=== PATIENT | female | born 1955 | race Caucasian/White ===

== ENCOUNTER 2024-12-19 14:20 | Emergency (ER) | payer OTHER ==
--- OUTSIDE RECORDS SUMMARY | 2024-12-19 14:30 | XMS REPORT | Continuity of Care Document ---
Author Name Unknown Address [address] [facility] [address] [place] [address] [facility] Address [address] [facility] [place] [address] Care Team Providers Care Barrel Filler Name Role Phone Kenya Pino NP Primary Care Physician [phone] Tammie Becker MD Attending Clinician [phone], [facility] Infusion Chair Attending Clinician U TAMMIE Morse Attending Clinician Unavailable Trina ALICEA Gc Attending Clinician Unavailable Radha Blackwell MD Attending Clinician [phone] Rachelle Hines MA Attending Clinician Unavailable Levy Garcia MD Attending Clinician [phone] Jovana Knott Attending Clinician Unavailable [place] Frost Attending Clinician [phone] JULIO CÉSAR PRIEST Attending Clinician Unavailable RERE RAMSAY Attending Clinician Unavailable KATINA DONOHUE Attending Clinician UnavailKATINA Marley Attending Clinician UnavailJONN Chappell Attending Clinician Unavailable Doctor Unassigned, Piedra Aguza Attending Clinician U lynda Zapata MD, Con Mendez Attending Clinician [phone] Kvng De Luna Attending Clinician [phone] Julio César Priest MD Attending Clinician [phone] Arnulfo Greene MD Attending Clinician [phone] ARNULFO GREENE Attending Clinician UnavailHeber Becerra Attending Clinician Unavailable DC MARCELINO Attending Clinician Unavailable DC MARCELINO Attending Clinician Unavailable BRANDON PRASAD Attending Clinician Unavailable Lab, Ang Natalie Db Attending Clinician Unavailable Jovana Knott Admitting Clinician Unavailable UNDEFINED Admitting Clinician Unavailable BRANDON PRASAD Admitting Clinician Unavailable Payers Payer Name Policy Type Policy Number Effective Date Expirati on Date Source [employer] MEDIC[employer] Medicare [id number] 2022 00:00:00 Problems Condition Name Condition Details Condition Category Status Onset Date Resolution Date Last Treatment Date Treating Clinician Comments Source Multiple joint pain Multiple joint pain Disease Active 03-21 00:00: 00 Memtuan Aburto Epic Primary osteoarthr itis of both knees Primary osteoarthr itis of both knees Disease Active 03-21 00:00: 00 Memtuan Aburto Epic Psoriatic arthritis Psoriatic arthritis Disease Active 03-21 00:00: 00 Antonio Aburto Epic Osteopenia of neck of left femur Osteopenia of neck of left femur Disease Active 01-25 00:00: 00 Memtuan Aburto Epic Hypertensi on Hypertensi on Disease Active 01-25 00:00: 00 Memtuan Gill Depression Depression Disease Active 01-25 00:00: 00 Memoria mary beth Aburto Epic COPD (chronic obstructiv e pulmonary disease) COPD (chronic obstructiv e pulmonary disease) Disease Active 01-25 00:00: 00 Memoria mary beth Aburto Epic 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 Disease Active 01-25 00:00: 00 Antonio Gill OA (osteoarth ritis) of knee OA (osteoarth ritis) of knee Disease Active 01-25 00:00: 00 Antonio Gill Gastroesop hageal reflux disease without esophagiti s Gastroesop hageal reflux disease without esophagiti s Disease Active 01-25 00:00: 00 Antonio Gill Iron deficiency anemia Iron deficiency anemia Disease Active 01-25 00:00: 00 Antonio Gill Bilateral chronic knee pain Bilateral chronic knee pain Disease Active 06-03 00:00: 00 Antonio Gill Bilateral plantar fasciitis Bilateral plantar fasciitis Disease Active 06-03 00:00: 00 Antonio Gill 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 Disease Active 06-03 00:00: 00 Antonio Gill Neuropathy of both feet Neuropathy of both feet Disease Active 06-03 00:00: 00 Antonio Glil Prediabete s Prediabete s Disease Active 06-03 00:00: 00 Antonio Gill Neuropathy of both feet Neuropathy of both feet Disease Active 06-03 00:00: 00 [facility] Breast cancer screening by mammogram Breast cancer screening by mammogram Disease Active 06-03 00:00: 00 [facility] Chronic foot pain, right Chronic foot pain, right Disease Active 06-03 00:00: 00 [facility] Need for vaccinatio n Need for vaccinatio n Disease Active 06-03 00:00: 00 [facility] Anxiety and depression Anxiety and depression Disease Active 06-03 00:00: 00 [facility] Chronic obstructiv e pulmonary disease, unspecifie d COPD type Chronic obstructiv e pulmonary disease, unspecifie d COPD type Disease Active 06-03 00:00: 00 [facility] 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 SULFONAM BRANDI CONTAINI NG COMPOUND S Drug Class Active Unknown 0 01-21 00:00: 00 [facility] PENICILL IN G BENZATHI NE DRUG INGREDI Active Unknown 0 01-21 00:00: 00 [facility] Misc. Sulfonam brandi Containi ng Compound s Drug Intolera nce Active Unknown 0 01-21 00:00: 00 [facility] Doxycycl ine Allergy to substanc e Active Unknown 0 01-21 00:00: 00 [facility] Misc. Sulfonam brandi Containi ng Compound s Drug Intolera nce Active Unknown 0 01-21 00:00: 00 [facility] Penicill in G Benzathi ne Allergy to substanc e Active Unknown 0 01-21 00:00: 00 [facility] Penicill ins DA Active SV HIVES 0 4- 00:00: 00 [facility] Sulfa (Sulfona mide Antibiot ics) DA Active SV HIVES 0 4- 00:00: 00 [facility] DOXYCYCL INE DRUG INGREDI Active Dizziness 2022-0 3-31 00:00: 00 [facility] Doxycycl ine Propensi ty to adverse reaction s Active Dizziness 2022-0 3-31 00:00: 00 [facility] SULFA ANTIBIOT ICS Drug Class Active Hives 0 9- 00:00: 00 [facility] DIOXYLIN E PHOSPHAT E DRUG INGREDI Active Hives 0 9- 00:00: 00 [facility] PENICILL IN DRUG INGREDI Active Hives 06-03 00:00: 00 [facility] SULFA (SULFONA MIDE ANTIBIOT ICS) Drug Class Active Hives 06-03 00:00: 00 [facility] Dioxylin e Phosphat e Propensi ty to adverse reaction s Active Hives 06-03 00:00: 00 [facility] Penicill in Propensi ty to adverse reaction s Active Hives 06-03 00:00: 00 [facility] Sulfa (Sulfona mide Antibiot ics) Propensi ty to adverse reaction s Active Hives 06-03 00:00: 00 [facility] Sulfa Antibiot ics Drug Intolera nce Active Hives 06-03 00:00: 00 Antonio clinton [facility] Social History Social Habit Start Date Stop Date Quantity Comments Source Sexual orientation 2024-03-14 19:12:07 Heterosexual (finding) [facility] Gender identity 2023-12-17 15:15:17 Identifies as female gender (finding) [facility] ASSERTION [facility] History SDOH Alcohol Frequency [facility] History SDOH Alcohol Std Drinks [facility] History SDOH Alcohol Binge [facility] History of Social function 2024-10-31 00:00:00 2024-10-31 00:00:00 [facility] Alcoholic beverage intake 2024-10-31 00:00:00 2024-10-31 00:00:00 Ex-drinker (finding) [facility] Tobacco use and exposure 2024-03-21 00:00:00 2024-03-21 00:00:00 Smokeless tobacco non-user [facility] Alcohol intake 2023-01-16 00:00:00 2023-01-16 00:00:00 Current drinker of alcohol (finding) [facility] Exposure to SARS-CoV-2 (event) 2022-12-11 00:00:00 2022-12-21 15:12:00 Not sure [facility] Alcohol Comment 2022-06-03 00:00:00 2022-06-03 00:00:00 once a year [facility] Sex assigned at 1955 00:00:00 1955 00:00:00 [facility] Smoking Status Start Date Stop Date Source Tobacco smoking consumption unknown [facility] [place] Never smoked tobacco Antonio Aburto [facility] Medications Ordered Medication Name Filled Medication Name Start Date Stop Date Current Medication? Ordering Clinician Indication Dosage Frequency Signature (SIG) Comments Components Source methotrexat e 2.5 MG tablet methotrexat e 2.5 MG tablet 11-22 00:00: 00 12-22 23:59 :00 No [id number] 10mg TAKE 4 TABLETS (10 MG TOTAL) BY MOUTH 1 TIME EACH WEEK. FOLLOW DIRECTIONS CAREFULLY, AND ASK TO EXPLAIN ANY PART YOU DO NOT UNDERSTAND . TAKE EXACTLY DIRECTED. Antonio Aburto [facility] folic acid (Folvite) 1 MG tablet folic acid (Folvite) 1 MG tablet 10-31 00:00: 00 01-29 23:59 :00 No [id number] 1mg QD Take 1 tablet by mouth 1 time each day. [facility]otrex[facility] 2.5 MG tablet methotrexat e 2.5 MG tablet 10-31 00:00: 00 11-22 00:00 :00 No [id number] 10mg Take 4 tablets (10 mg total) by mouth 1 time each week. Follow directions carefully, and ask to explain any part you do not understand . Take exactly as directed. Antonio Aburto [facility] meloxicam (Mobic) 7.5 MG tablet meloxicam (Mobic) 7.5 MG tablet 2-04 00:00: 00 Yes 7.5mg Take 7.5 mg by mouth in the morning and 7.5 mg in the evening. Antonio Aburto [facility] zoledronic acid (Reclast) 5 MG/100ML solution zoledronic acid (Reclast) 5 MG/100ML solution 1-16 00:00: 00 Yes [id number] 5mg Infuse 100 mL into a venous catheter 1 time for 1 dose. Antonio Aburto [facility] zoledronic acid (Reclast) 5 MG/100ML solution zoledronic acid (Reclast) 5 MG/100ML solution 2023-09 2-11 00:00: 00 10-10 00:00 :00 No [id number] administer 5mg Intravenou s ONCE a year 365 DAYS] Antonio Gill montelukast (Singulair) 10 MG tablet montelukast (Singulair) 10 MG tablet 06-21 00:00: 00 Yes 10mg QD Take 10 mg by mouth 1 time each day. Antonio Gill Flonase Allergy Relief 50 MCG/ACT nasal spray Flonase Allergy Relief 50 MCG/ACT nasal spray 06-21 00:00: 00 Yes 2{spray } QD Administer 2 sprays into each nostril 1 time each day. Antonio Gill predniSONE (Deltasone) 5 MG tablet predniSONE (Deltasone) 5 MG tablet - 00:00: 00 05-23 23:59 :00 No [id number] TAKE 2 TABLETS BY MOUTH ONCE A DAY FOR 7 DAYS Antonio Gill Risankizuma b-rzaa (Skyrizi Pen) 150 MG/ML solution auto-inject or Risankizuma b-rzaa (Skyrizi Pen) 150 MG/ML solution auto-inject or 04-24 00:00: 00 10-31 00:00 :00 No 150MG SUBCUTANEI OUS AT WEEK 0, WEEK 4, THEN EVERY 12 WEEKS THERE AFTER. Antonio Gill loratadine (Claritin) 5 MG chewable tablet loratadine (Claritin) 5 MG chewable tablet 03-21 11:17: 16 Yes Claritin Antonio Gill sertraline (Zoloft) 100 MG tablet sertraline (Zoloft) 100 MG tablet 03-21 10:59: 55 Yes 1{tbl} QD Take 1 tablet by mouth 1 time each day. Antonio Gill lisinopril 20 MG tablet lisinopril 20 MG tablet 03-21 10:59: 53 Yes 1{tbl} QD Take 1 tablet by mouth 1 time each day. Antonio Gill hydroCHLORO thiazide (Microzide) 12.5 MG capsule hydroCHLORO thiazide (Microzide) 12.5 MG capsule 03-21 10:59: 52 Yes 1{capsu le} Take 1 capsule by mouth every morning. Antonio Gill gabapentin (Neurontin) 800 MG tablet gabapentin (Neurontin) 800 MG tablet 03-21 10:59: 49 Yes 1{tbl} Q.[id number] 3D Take 1 tablet by mouth in the morning and 1 tablet at noon and 1 tablet in the evening. Antonio Gill busPIRone (Buspar) 10 MG tablet busPIRone (Buspar) 10 MG tablet 03-21 10:59: 33 Yes 1{tbl} 1 tablet 1 time each day at the same time. Antonio Gill tiZANidine (Zanaflex) 4 MG tablet tiZANidine (Zanaflex) 4 MG tablet 03-21 07:55: 19 03-21 00:00 :00 No 1{tbl} QD Take 1 tablet by mouth as needed at bedtime for muscle spasms. Antonio Gill ergocalcife rol (Vitamin D-2) 1.25 MG (94267 UT) capsule ergocalcife rol (Vitamin D-2) 1.25 MG (36517 UT) capsule 03-04 00:00: 00 03-21 00:00 :00 No 1.25mg Take 1 capsule by mouth 1 time each week. Antonio Gill traZODone (Desyrel) 50 MG tablet traZODone (Desyrel) 50 MG tablet 02-21 00:00: 00 Yes Antonoi Gill atorvastati n (Lipitor) 10 MG tablet atorvastati n (Lipitor) 10 MG tablet 02-21 00:00: 00 Yes Antonio Gill traMADol (Ultram) 50 MG tablet traMADol (Ultram) 50 MG tablet 01-24 00:00: 00 04-23 00:00 :00 No TAKE 1 TABLET BY MOUTH EVERY 8 HOURS NEEDED FOR PAIN (SCALE 4 TO 6) Antonio Gill hydroxychlo roquine (Plaquenil) 200 MG tablet hydroxychlo roquine (Plaquenil) 200 MG tablet 4-27 00:00: 00 03-21 00:00 :00 No Antonio Gill SUMAtriptan (Imitrex) 50 MG tablet SUMAtriptan (Imitrex) 50 MG tablet 4-25 00:00: 00 04-23 00:00 :00 No Antonio Gill LISINOPRIL 20 mg tablet 3-19 00:00: 00 Yes [id number] TAKE 1 TABLET IN THE MORNING [facility] zoledronic acid (Reclast) 5 MG/100ML solution zoledronic acid (Reclast) 5 MG/100ML solution 2022-09 2-14 00:00: 00 09-04 00:00 :00 No 5mg Infuse 5 mg into a venous catheter yearly. Antonio Gill Trelegy Ellipta 200-62.5-25 MCG/ACT aerosol powder Trelegy Ellipta 200-62.5-25 MCG/ACT aerosol powder 9-26 00:00: 00 Yes Antonio Aburto [facility] lisinopriL 20 mg tablet 7-19 00:00: 00 12-11 00:00 :00 No [id number] 20mg Take 1 tablet by mouth in the morning. [facility] predniSONE (Deltasone) 10 MG tablet predniSONE (Deltasone) 10 MG tablet 03-21 00:00: 00 03-21 00:00 :00 No 1{tbl} Q24H Take 1-2 tablets by mouth daily as needed (JOINT PAIN). Antonio Aburto [facility] LISINOPRIL 20 mg tablet 6-14 00:00: 00 04-12 00:00 :00 No [id number] TAKE 1 TABLET BY MOUTH EVERY DAY IN THE MORNING [facility] hydroCHLORO thiazide 12.5 mg capsule 0 6-12 00:00: 00 Yes [id number] TAKE 1 CAPSULE BY MOUTH EVERY MORNING. NEEDS FOLLOW UP/LABS [facility] hydroCHLORO thiazide 12.5 mg capsule 01-23 00:00: 00 03-06 00:00 :00 No [id number] TAKE 1 CAPSULE BY MOUTH EVERY MORNING. NEEDS FOLLOW UP/LABS [facility] tiZANidine 4 mg tablet 01-04 00:00: 00 Yes [id number] 4mg Take 1 tablet by mouth at bedtime as needed for Pain (scale 4-6) or Other (spasm). [facility] tiZANidine 4 mg tablet 12-28 00:00: 00 Yes [id number] 4mg Take 1 tablet by mouth at bedtime. Take 1 to 2 tablets at bedtime as needed [facility] hydroCHLORO thiazide 12.5 mg capsule 12-28 00:00: 00 01-23 00:00 :00 No [id number] TAKE 1 CAPSULE BY MOUTH EVERY MORNING. NEEDS FOLLOW UP/LABS [facility] ciprofloxac in HCl 500 mg tablet 12-23 00:00: 00 Yes [id number] 500mg Take 1 tablet by mouth every 12 (twelve) hours. [facility] hydroCHLORO thiazide 12.5 mg capsule 12-13 00:00: 00 Yes [id number] Take 2 tablets by mouth daily, MUST BE SEEN FOR FURTHER REFILLS [facility] doxycycline monohydrate 100 mg capsule 12-09 00:00: 00 Yes [id number] 100mg Take 1 capsule by mouth in the morning and 1 capsule in the evening. [facility] sodium hypochlorit e 0.5% (DAKIN'S SOLUTION) solution 12-09 00:00: 00 Yes [id number] 105 Apply to area(s) daily. [facility] HYDROcodone -acetaminop hen 5-325 mg tablet 12-09 00:00: 00 12-17 04:59 :00 No [id number] 1{tbl} Take 1 tablet by mouth every 6 (six) hours as needed for Pain (scale 7-10) for up to 7 days. Indication s: acute pain [facility] gabapentin 800 mg tablet 16 00:00: 00 Yes [id number] 800mg Take 1 tablet by mouth in the morning and 1 tablet at noon and 1 tablet in the evening. [facility] busPIRone 10 mg tablet 13 00:00: 00 Yes [id number] 10mg Take 1 tablet by mouth in the morning and 1 tablet in the evening. [facility] SERTraline 100 mg tablet 12-03 00:00: 00 Yes [id number] 100mg Take 1 tablet by mouth in the morning. [facility] meloxicam 15 mg tablet 12-03 00:00: 00 Yes [id number] 7.5mg Take 0.5 tablets by mouth once daily as needed for Pain or Inflammati on. USE SPARINGLY DUE TO SIDE EFFECTS [facility] tiZANidine 4 mg tablet 12-03 00:00: 00 12-28 00:00 :00 No [id number] 4mg Take 1 tablet by mouth at bedtime. Take 1 to 2 tablets at bedtime as needed [facility] gabapentin 800 mg tablet 12-03 00:00: 00 12-08 00:00 :00 No [id number] 800mg Take 1 tablet by mouth in the morning and 1 tablet at noon and 1 tablet in the evening. Take 1 and 1/2 tablets 3 times daily [facility] mupirocin 2 % ointment 11-11 00:00: 00 Yes [id number] Apply to area(s) daily. [facility] HYDROcodone -acetaminop hen 5-325 mg tablet 11-11 00:00: 00 11-19 05:59 :00 No [id number] 1{tbl} Take 1 tablet by mouth every 6 (six) hours as needed for Pain (scale 1-3) for up to 7 days. Indication s: acute pain [facility] methylPREDN ISolone acetate (DEPO-MEDRO L) injection 80 mg 11-04 21:45: 00 11-04 21:38 :00 No [id number] 80mg [facility] lisinopriL 20 mg tablet 1- 00:00: 00 03-08 00:00 :00 No [id number] 20mg Take 1 tablet by mouth in the morning. [facility] meloxicam 15 mg tablet 2021-09 00:00: 00 12-02 00:00 :00 No [id number] 7.5mg Take 0.5 tablets by mouth once daily as needed for Pain or Inflammati on. USE SPARINGLY DUE TO SIDE EFFECTS [facility] hydroCHLORO thiazide 12.5 mg capsule 2021-09 00:00: 00 12-13 00:00 :00 No [id number] Take 2 tablets by mouth daily [facility] hydroCHLORO thiazide 12.5 mg capsule 2021-09 00:00: 00 09-12 00:00 :00 No [id number] 12.5mg Take 1 capsule by mouth in the morning. [facility] SERTraline 100 mg tablet 2021-09 00:00: 00 12-02 00:00 :00 No [id number] 100mg Take 1 tablet by mouth in the morning. [facility] busPIRone 10 mg tablet 2021-09 00:00: 00 12-05 00:00 :00 No [id number] 10mg Take 1 tablet by mouth in the morning and 1 tablet in the evening. [facility] meloxicam 15 mg tablet 2021-09 0- 00:00: 00 09-21 00:00 :00 No [id number] 7.5mg Take 0.5 tablets by mouth once daily as needed for Pain or Inflammati on. USE SPARINGLY DUE TO SIDE EFFECTS [facility] hydroCHLORO thiazide 12.5 mg capsule 2021-09 0 00:00: 00 09-08 00:00 :00 No [id number] 12.5mg Take 1 capsule by mouth in the morning. [facility] albuterol HFA 90 mcg/act inhaler albuterol HFA 90 mcg/act inhaler 2022-0 9-09 00:00: 00 Yes INHALE 1 PUFF BY MOUTH EVERY 6 HOURS NEEDED Antonio Aburto [facility] acetaminoph en (Tylenol 8 Hour) 650 MG ER tablet acetaminoph en (Tylenol 8 Hour) 650 MG ER tablet 06-03 00:00: 00 Yes 1{tbl} Q8H Take 1 tablet by mouth every 8 hours if needed. Antonio Aburto [facility] Fluticasone -Salmeterol (ADVAIR DISKUS) 500-50 mcg/dose inhalation disk 06-03 00:00: 00 Yes [id number] 1{puff} Inhale 1 Puff every 12 (twelve) hours. [facility] acetaminoph en (TYLENOL ARTHRITIS PAIN) 650 mg CR tablet 06-03 00:00: 00 Yes [id number] 650mg Take 1 tablet by mouth every 8 (eight) hours as needed for Pain. [facility] tiZANidine 4 mg tablet 06-03 00:00: 00 12-02 00:00 :00 No [id number] 4mg Take 1 tablet by mouth at bedtime. Take 1 to 2 tablets at bedtime as needed [facility] gabapentin 800 mg tablet 06-03 00:00: 00 12-02 00:00 :00 No [id number] 800mg Take 1 tablet by mouth in the morning and 1 tablet at noon and 1 tablet in the evening. Take 1 and 1/2 tablets 3 times daily [facility] lisinopriL 20 mg tablet 06-03 00:00: 00 09-26 00:00 :00 No [id number] 20mg Take 1 tablet by mouth in the morning. [facility] SERTraline 100 mg tablet 06-03 00:00: 00 09-05 00:00 :00 No [id number] 100mg Take 1 tablet by mouth in the morning. [facility] busPIRone 10 mg tablet 06-03 00:00: 00 08-27 00:00 :00 No [id number] 10mg Take 1 tablet by mouth in the morning and 1 tablet in the evening. [facility] hydroCHLORO thiazide 12.5 mg capsule 06-03 00:00: 00 07-20 00:00 :00 No [id number] 12.5mg Take 1 capsule by mouth in the morning. [facility] meloxicam 15 mg tablet 06-03 00:00: 00 07-20 00:00 :00 No [id number] 15mg Take 1 tablet by mouth once daily as needed for Pain or Inflammati on. USE SPARINGLY DUE TO SIDE EFFECTS [facility] Immunizations Ordered Immunization Name Filled Immunization Name Date Status Comments Source Influenza Virus Vaccine,quad Im,preserve Free 2022-10-03 00:00:00 Completed [facility] Influenza Virus Vaccine,quad Im,preserve Free 2022-10-03 00:00:00 Completed [facility] Influenza Virus Vaccine,quad Im,preserve Free 2022-10-03 00:00:00 Completed [facility] Influenza Virus Vaccine,quad Im,preserve Free 2022-10-03 00:00:00 Completed [facility] Influenza Virus Vaccine,quad Im,preserve Free 2022-10-03 00:00:00 Completed [facility] Influenza Virus Vaccine,quad Im,preserve Free 2022-10-03 00:00:00 Completed [facility] Influenza Virus Vaccine,quad Im,preserve Free 2022-10-03 00:00:00 Completed [facility] Influenza Virus Vaccine,quad Im,preserve Free 2022-10-03 00:00:00 Completed [facility] Influenza Virus Vaccine,quad Im,preserve Free 2022-10-03 00:00:00 Completed [facility] Influenza Virus Vaccine,quad Im,preserve Free 2022-10-03 00:00:00 Completed [facility] Influenza Virus Vaccine,quad Im,preserve Free 2022-10-03 00:00:00 Completed [facility] Influenza Virus Vaccine,quad Im,preserve Free 2022-10-03 00:00:00 Completed [facility] Influenza Virus Vaccine,quad Im,preserve Free 2022-10-03 00:00:00 Completed [facility] Influenza Virus Vaccine,quad Im,preserve Free 652022-10-03 00:00:00 Completed [facility] Influenza Virus Vaccine,quad Im,preserve Free 652022-10-03 00:00:00 Completed [facility] Influenza Virus Vaccine,quad Im,preserve Free 2022-10-03 00:00:00 Completed [facility] Influenza Virus Vaccine,quad Im,preserve Free 652022-10-03 00:00:00 Completed [facility] Influenza Virus Vaccine,quad Im,preserve Free 652022-10-03 00:00:00 Completed [facility] Influenza Virus Vaccine,quad Im,preserve Free 652022-10-03 00:00:00 Completed [facility] Influenza Virus Vaccine,quad Im,preserve Free 652022-10-03 00:00:00 Completed [facility] Influenza Virus Vaccine,quad Im,preserve Free 2022-10-03 00:00:00 Completed [facility] Influenza Virus Vaccine,quad Im,preserve Free 2022-10-03 00:00:00 Completed [facility] Influenza Virus Vaccine,quad Im,preserve Free 2022-10-03 00:00:00 Completed [facility] Influenza Virus Vaccine,quad Im,preserve Free 2022-10-03 00:00:00 Completed [facility] Influenza Virus Vaccine,quad Im,preserve Free 2022-10-03 00:00:00 Completed [facility] Influenza Virus Vaccine,quad Im,preserve Free 2022-10-03 00:00:00 Completed [facility] Influenza Virus Vaccine,quad Im,preserve Free 652022-10-03 00:00:00 Completed [facility] [facility] Influenza Virus Vaccine,quad Im,preserve Free 2022-10-03 00:00:00 Completed [facility] Influenza Virus Vaccine,quad Im,preserve Free 652022-10-03 00:00:00 Completed [facility] Influenza Virus Vaccine,quad Im,preserve Free 2022-10-03 00:00:00 Completed [facility] Influenza Virus Vaccine,quad Im,preserve Free 652022-10-03 00:00:00 Completed [facility] Pneumococcal 20 Conjugate, PCV20 (Prevnar 20) 2022-06-03 00:00:00 Completed [facility] Pneumococcal 20 Conjugate, PCV20 (Prevnar 20) 2022-06-03 00:00:00 Completed [facility] Pneumococcal 20 Conjugate, PCV20 (Prevnar 20) 2022-06-03 00:00:00 Completed [facility] Pneumococcal 20 Conjugate, PCV20 (Prevnar 20) 2022-06-03 00:00:00 Completed [facility] Pneumococcal 20 Conjugate, PCV20 (Prevnar 20) 2022-06-03 00:00:00 Completed [facility] Pneumococcal 20 Conjugate, PCV20 (Prevnar 20) 2022-06-03 00:00:00 Completed [facility] Pneumococcal 20 Conjugate, PCV20 (Prevnar 20) 2022-06-03 00:00:00 Completed [facility] Pneumococcal 20 Conjugate, PCV20 (Prevnar 20) 2022-06-03 00:00:00 Completed [facility] Pneumococcal 20 Conjugate, PCV20 (Prevnar 20) 2022-06-03 00:00:00 Completed [facility] Pneumococcal 20 Conjugate, PCV20 (Prevnar 20) 2022-06-03 00:00:00 Completed [facility] Pneumococcal 20 Conjugate, PCV20 (Prevnar 20) 2022-06-03 00:00:00 Completed [facility] Pneumococcal 20 Conjugate, PCV20 (Prevnar 20) 2022-06-03 00:00:00 Completed [facility] Pneumococcal 20 Conjugate, PCV20 (Prevnar 20) 2022-06-03 00:00:00 Completed [facility] Pneumococcal 20 Conjugate, PCV20 (Prevnar 20) 2022-06-03 00:00:00 Completed [facility] Pneumococcal 20 Conjugate, PCV20 (Prevnar 20) 2022-06-03 00:00:00 Completed [facility] Pneumococcal 20 Conjugate, PCV20 (Prevnar 20) 2022-06-03 00:00:00 Completed [facility] Pneumococcal 20 Conjugate, PCV20 (Prevnar 20) 2022-06-03 00:00:00 Completed [facility] Pneumococcal 20 Conjugate, PCV20 (Prevnar 20) 2022-06-03 00:00:00 Completed [facility] Pneumococcal 20 Conjugate, PCV20 (Prevnar 20) 2022-06-03 00:00:00 Completed [facility] Pneumococcal 20 Conjugate, PCV20 (Prevnar 20) 2022-06-03 00:00:00 Completed [facility] Pneumococcal 20 Conjugate, PCV20 (Prevnar 20) 2022-06-03 00:00:00 Completed [facility] Pneumococcal 20 Conjugate, PCV20 (Prevnar 20) 2022-06-03 00:00:00 Completed [facility] Pneumococcal 20 Conjugate, PCV20 (Prevnar 20) 2022-06-03 00:00:00 Completed [facility] Pneumococcal 20 Conjugate, PCV20 (Prevnar 20) 2022-06-03 00:00:00 Completed [facility] Pneumococcal 20 Conjugate, PCV20 (Prevnar 20) 2022-06-03 00:00:00 Completed [facility] Pneumococcal 20 Conjugate, PCV20 (Prevnar 20) 2022-06-03 00:00:00 Completed [facility] Pneumococcal 20 Conjugate, PCV20 (Prevnar 20) 2022-06-03 00:00:00 Completed [facility] Pneumococcal 20 Conjugate, PCV20 (Prevnar 20) 2022-06-03 00:00:00 Completed [facility] Pneumococcal 20 Conjugate, PCV20 (Prevnar 20) 2022-06-03 00:00:00 Completed [facility] Pneumococcal 20 Conjugate, PCV20 (Prevnar 20) 2022-06-03 00:00:00 Completed [facility] Pneumococcal 20 Conjugate, PCV20 (Prevnar 20) 2022-06-03 00:00:00 Completed [facility] Pneumococcal 20 Conjugate, PCV20 (Prevnar 20) 2022-06-03 00:00:00 Completed [facility] Pneumococcal 20 Conjugate, PCV20 (Prevnar 20) 2022-06-03 00:00:00 Completed [facility] Pneumococcal 20 Conjugate, PCV20 (Prevnar 20) 2022-06-03 00:00:00 Completed [facility] Pneumococcal 20 Conjugate, PCV20 (Prevnar 20) 2022-06-03 00:00:00 Completed [facility] Pneumococcal 20 Conjugate, PCV20 (Prevnar 20) 2022-06-03 00:00:00 Completed [facility] Pneumococcal 20 Conjugate, PCV20 (Prevnar 20) 2022-06-03 00:00:00 Completed [facility] Pneumococcal 20 Conjugate, PCV20 (Prevnar 20) 2022-06-03 00:00:00 Completed [facility] Pneumococcal 20 Conjugate, PCV20 (Prevnar 20) 2022-06-03 00:00:00 Completed [facility] Pneumococcal 20 Conjugate, PCV20 (Prevnar 20) 2022-06-03 00:00:00 Completed [facility] Pneumococcal 20 Conjugate, PCV20 (Prevnar 20) 2022-06-03 00:00:00 Completed [facility] SARS-COV-2 COVID-19 PFIZER VACCINE 2022-01-19 00:00:00 Completed [facility] SARS-COV-2 COVID-19 PFIZER VACCINE 2022-01-19 00:00:00 Completed [facility] SARS-COV-2 COVID-19 PFIZER VACCINE 2022-01-19 00:00:00 Completed [facility] SARS-COV-2 COVID-19 PFIZER VACCINE 2022-01-19 00:00:00 Completed [facility] SARS-COV-2 COVID-19 PFIZER VACCINE 2022-01-19 00:00:00 Completed [facility] SARS-COV-2 COVID-19 PFIZER VACCINE 2022-01-19 00:00:00 Completed [facility] SARS-COV-2 COVID-19 PFIZER VACCINE 2022-01-19 00:00:00 Completed [facility] SARS-COV-2 COVID-19 PFIZER VACCINE 2022-01-19 00:00:00 Completed [facility] SARS-COV-2 COVID-19 PFIZER VACCINE 2022-01-19 00:00:00 Completed [facility] SARS-COV-2 COVID-19 PFIZER VACCINE 2022-01-19 00:00:00 Completed [facility] SARS-COV-2 COVID-19 PFIZER VACCINE 2022-01-19 00:00:00 Completed [facility] SARS-COV-2 COVID-19 PFIZER VACCINE 2022-01-19 00:00:00 Completed [facility] SARS-COV-2 COVID-19 PFIZER VACCINE 2022-01-19 00:00:00 Completed [facility] SARS-COV-2 COVID-19 PFIZER VACCINE 2022-01-19 00:00:00 Completed [facility] SARS-COV-2 COVID-19 PFIZER VACCINE 2022-01-19 00:00:00 Completed [facility] SARS-COV-2 COVID-19 PFIZER VACCINE 2022-01-19 00:00:00 Completed [facility] SARS-COV-2 COVID-19 PFIZER VACCINE 2022-01-19 00:00:00 Completed [facility] SARS-COV-2 COVID-19 PFIZER VACCINE 2022-01-19 00:00:00 Completed [facility] SARS-COV-2 COVID-19 PFIZER VACCINE 2022-01-19 00:00:00 Completed [facility] SARS-COV-2 COVID-19 PFIZER VACCINE 2022-01-19 00:00:00 Completed [facility] SARS-COV-2 COVID-19 PFIZER VACCINE 2022-01-19 00:00:00 Completed [facility] SARS-COV-2 COVID-19 PFIZER VACCINE 2022-01-19 00:00:00 Completed [facility] SARS-COV-2 COVID-19 PFIZER VACCINE 2022-01-19 00:00:00 Completed [facility] SARS-COV-2 COVID-19 PFIZER VACCINE 2022-01-19 00:00:00 Completed [facility] SARS-COV-2 COVID-19 PFIZER VACCINE 2022-01-19 00:00:00 Completed [facility] SARS-COV-2 COVID-19 PFIZER VACCINE 2022-01-19 00:00:00 Completed [facility] SARS-COV-2 COVID-19 PFIZER VACCINE 2022-01-19 00:00:00 Completed [facility] SARS-COV-2 COVID-19 PFIZER VACCINE 2022-01-19 00:00:00 Completed [facility] SARS-COV-2 COVID-19 PFIZER VACCINE 2022-01-19 00:00:00 Completed [facility] SARS-COV-2 COVID-19 PFIZER VACCINE 2022-01-19 00:00:00 Completed [facility] SARS-COV-2 COVID-19 PFIZER VACCINE 2022-01-19 00:00:00 Completed [facility] SARS-COV-2 COVID-19 PFIZER VACCINE 2022-01-19 00:00:00 Completed [facility] SARS-COV-2 COVID-19 PFIZER VACCINE 2022-01-19 00:00:00 Completed [facility] SARS-COV-2 COVID-19 PFIZER VACCINE 2022-01-19 00:00:00 Completed [facility] SARS-COV-2 COVID-19 PFIZER VACCINE 2022-01-19 00:00:00 Completed [facility] SARS-COV-2 COVID-19 PFIZER VACCINE 2022-01-19 00:00:00 Completed [facility] SARS-COV-2 COVID-19 PFIZER VACCINE 2022-01-19 00:00:00 Completed [facility] SARS-COV-2 COVID-19 PFIZER VACCINE 2022-01-19 00:00:00 Completed [facility] SARS-COV-2 COVID-19 PFIZER VACCINE 2022-01-19 00:00:00 Completed [facility] SARS-COV-2 COVID-19 PFIZER VACCINE 2022-01-19 00:00:00 Completed [facility] SARS-COV-2 COVID-19 PFIZER VACCINE 2022-01-19 00:00:00 Completed [facility] SARS-COV-2 COVID-19 PFIZER VACCINE 2021-07-20 00:00:00 Completed [facility] SARS-COV-2 COVID-19 PFIZER VACCINE 2021-07-20 00:00:00 Completed [facility] SARS-COV-2 COVID-19 PFIZER VACCINE 2021-07-20 00:00:00 Completed [facility] SARS-COV-2 COVID-19 PFIZER VACCINE 2021-07-20 00:00:00 Completed [facility] SARS-COV-2 COVID-19 PFIZER VACCINE 2021-07-20 00:00:00 Completed [facility] SARS-COV-2 COVID-19 PFIZER VACCINE 2021-07-20 00:00:00 Completed [facility] SARS-COV-2 COVID-19 PFIZER VACCINE 2021-07-20 00:00:00 Completed [facility] SARS-COV-2 COVID-19 PFIZER VACCINE 2021-07-20 00:00:00 Completed [facility] SARS-COV-2 COVID-19 PFIZER VACCINE 2021-07-20 00:00:00 Completed [facility] SARS-COV-2 COVID-19 PFIZER VACCINE 2021-07-20 00:00:00 Completed [facility] SARS-COV-2 COVID-19 PFIZER VACCINE 2021-07-20 00:00:00 Completed [facility] SARS-COV-2 COVID-19 PFIZER VACCINE 2021-07-20 00:00:00 Completed [facility] SARS-COV-2 COVID-19 PFIZER VACCINE 2021-07-20 00:00:00 Completed [facility] SARS-COV-2 COVID-19 PFIZER VACCINE 2021-07-20 00:00:00 Completed [facility] SARS-COV-2 COVID-19 PFIZER VACCINE 2021-07-20 00:00:00 Completed [facility] SARS-COV-2 COVID-19 PFIZER VACCINE 2021-07-20 00:00:00 Completed [facility] SARS-COV-2 COVID-19 PFIZER VACCINE 2021-07-20 00:00:00 Completed [facility] SARS-COV-2 COVID-19 PFIZER VACCINE 2021-07-20 00:00:00 Completed [facility] SARS-COV-2 COVID-19 PFIZER VACCINE 2021-07-20 00:00:00 Completed [facility] SARS-COV-2 COVID-19 PFIZER VACCINE 2021-07-20 00:00:00 Completed [facility] SARS-COV-2 COVID-19 PFIZER VACCINE 2021-07-20 00:00:00 Completed [facility] SARS-COV-2 COVID-19 PFIZER VACCINE 2021-07-20 00:00:00 Completed [facility] SARS-COV-2 COVID-19 PFIZER VACCINE 2021-07-20 00:00:00 Completed [facility] SARS-COV-2 COVID-19 PFIZER VACCINE 2021-07-20 00:00:00 Completed [facility] SARS-COV-2 COVID-19 PFIZER VACCINE 2021-07-20 00:00:00 Completed [facility] SARS-COV-2 COVID-19 PFIZER VACCINE 2021-07-20 00:00:00 Completed [facility] SARS-COV-2 COVID-19 PFIZER VACCINE 2021-07-20 00:00:00 Completed [facility] SARS-COV-2 COVID-19 PFIZER VACCINE 2021-07-20 00:00:00 Completed [facility] SARS-COV-2 COVID-19 PFIZER VACCINE 2021-07-20 00:00:00 Completed [facility] SARS-COV-2 COVID-19 PFIZER VACCINE 2021-07-20 00:00:00 Completed [facility] SARS-COV-2 COVID-19 PFIZER VACCINE 2021-07-20 00:00:00 Completed [facility] SARS-COV-2 COVID-19 PFIZER VACCINE 2021-07-20 00:00:00 Completed [facility] SARS-COV-2 COVID-19 PFIZER VACCINE 2021-07-20 00:00:00 Completed [facility] SARS-COV-2 COVID-19 PFIZER VACCINE 2021-07-20 00:00:00 Completed [facility] SARS-COV-2 COVID-19 PFIZER VACCINE 2021-07-20 00:00:00 Completed [facility] SARS-COV-2 COVID-19 PFIZER VACCINE 2021-07-20 00:00:00 Completed [facility] SARS-COV-2 COVID-19 PFIZER VACCINE 2021-07-20 00:00:00 Completed [facility] SARS-COV-2 COVID-19 PFIZER VACCINE 2021-07-20 00:00:00 Completed [facility] SARS-COV-2 COVID-19 PFIZER VACCINE 2021-07-20 00:00:00 Completed [facility] SARS-COV-2 COVID-19 PFIZER VACCINE 2021-07-20 00:00:00 Completed [facility] SARS-COV-2 COVID-19 PFIZER VACCINE 2021-07-20 00:00:00 Completed [facility] SARS-COV-2 COVID-19 PFIZER VACCINE 2021-05-25 00:00:00 Completed [facility] SARS-COV-2 COVID-19 PFIZER VACCINE 2021-05-25 00:00:00 Completed [facility] SARS-COV-2 COVID-19 PFIZER VACCINE 2021-05-25 00:00:00 Completed [facility] SARS-COV-2 COVID-19 PFIZER VACCINE 2021-05-25 00:00:00 Completed [facility] SARS-COV-2 COVID-19 PFIZER VACCINE 2021-05-25 00:00:00 Completed [facility] SARS-COV-2 COVID-19 PFIZER VACCINE 2021-05-25 00:00:00 Completed [facility] SARS-COV-2 COVID-19 PFIZER VACCINE 2021-05-25 00:00:00 Completed [facility] SARS-COV-2 COVID-19 PFIZER VACCINE 2021-05-25 00:00:00 Completed [facility] SARS-COV-2 COVID-19 PFIZER VACCINE 2021-05-25 00:00:00 Completed [facility] SARS-COV-2 COVID-19 PFIZER VACCINE 2021-05-25 00:00:00 Completed [facility] SARS-COV-2 COVID-19 PFIZER VACCINE 2021-05-25 00:00:00 Completed [facility] SARS-COV-2 COVID-19 PFIZER VACCINE 2021-05-25 00:00:00 Completed [facility] SARS-COV-2 COVID-19 PFIZER VACCINE 2021-05-25 00:00:00 Completed [facility] SARS-COV-2 COVID-19 PFIZER VACCINE 2021-05-25 00:00:00 Completed [facility] SARS-COV-2 COVID-19 PFIZER VACCINE 2021-05-25 00:00:00 Completed [facility] SARS-COV-2 COVID-19 PFIZER VACCINE 2021-05-25 00:00:00 Completed [facility] SARS-COV-2 COVID-19 PFIZER VACCINE 2021-05-25 00:00:00 Completed [facility] SARS-COV-2 COVID-19 PFIZER VACCINE 2021-05-25 00:00:00 Completed [facility] SARS-COV-2 COVID-19 PFIZER VACCINE 2021-05-25 00:00:00 Completed [facility] SARS-COV-2 COVID-19 PFIZER VACCINE 2021-05-25 00:00:00 Completed [facility] SARS-COV-2 COVID-19 PFIZER VACCINE 2021-05-25 00:00:00 Completed [facility] SARS-COV-2 COVID-19 PFIZER VACCINE 2021-05-25 00:00:00 Completed [facility] SARS-COV-2 COVID-19 PFIZER VACCINE 2021-05-25 00:00:00 Completed [facility] SARS-COV-2 COVID-19 PFIZER VACCINE 2021-05-25 00:00:00 Completed [facility] SARS-COV-2 COVID-19 PFIZER VACCINE 2021-05-25 00:00:00 Completed [facility] SARS-COV-2 COVID-19 PFIZER VACCINE 2021-05-25 00:00:00 Completed [facility] SARS-COV-2 COVID-19 PFIZER VACCINE 2021-05-25 00:00:00 Completed [facility] SARS-COV-2 COVID-19 PFIZER VACCINE 2021-05-25 00:00:00 Completed [facility] SARS-COV-2 COVID-19 PFIZER VACCINE 2021-05-25 00:00:00 Completed [facility] SARS-COV-2 COVID-19 PFIZER VACCINE 2021-05-25 00:00:00 Completed [facility] SARS-COV-2 COVID-19 PFIZER VACCINE 2021-05-25 00:00:00 Completed [facility] SARS-COV-2 COVID-19 PFIZER VACCINE 2021-05-25 00:00:00 Completed [facility] SARS-COV-2 COVID-19 PFIZER VACCINE 2021-05-25 00:00:00 Completed [facility] SARS-COV-2 COVID-19 PFIZER VACCINE 2021-05-25 00:00:00 Completed [facility] SARS-COV-2 COVID-19 PFIZER VACCINE 2021-05-25 00:00:00 Completed [facility] SARS-COV-2 COVID-19 PFIZER VACCINE 2021-05-25 00:00:00 Completed [facility] SARS-COV-2 COVID-19 PFIZER VACCINE 2021-05-25 00:00:00 Completed [facility] SARS-COV-2 COVID-19 PFIZER VACCINE 2021-05-25 00:00:00 Completed [facility] SARS-COV-2 COVID-19 PFIZER VACCINE 2021-05-25 00:00:00 Completed [facility] SARS-COV-2 COVID-19 PFIZER VACCINE 2021-05-25 00:00:00 Completed [facility] SARS-COV-2 COVID-19 PFIZER VACCINE 2021-05-25 00:00:00 Completed [facility] SARS-COV-2 COVID-19 PFIZER VACCINE 2021-04-24 00:00:00 Completed [facility] SARS-COV-2 COVID-19 PFIZER VACCINE 2021-04-24 00:00:00 Completed [facility] SARS-COV-2 COVID-19 PFIZER VACCINE 2021-04-24 00:00:00 Completed [facility] SARS-COV-2 COVID-19 PFIZER VACCINE 2021-04-24 00:00:00 Completed [facility] SARS-COV-2 COVID-19 PFIZER VACCINE 2021-04-24 00:00:00 Completed [facility] SARS-COV-2 COVID-19 PFIZER VACCINE 2021-04-24 00:00:00 Completed [facility] SARS-COV-2 COVID-19 PFIZER VACCINE 2021-04-24 00:00:00 Completed [facility] SARS-COV-2 COVID-19 PFIZER VACCINE 2021-04-24 00:00:00 Completed [facility] SARS-COV-2 COVID-19 PFIZER VACCINE 2021-04-24 00:00:00 Completed [facility] SARS-COV-2 COVID-19 PFIZER VACCINE 2021-04-24 00:00:00 Completed [facility] SARS-COV-2 COVID-19 PFIZER VACCINE 2021-04-24 00:00:00 Completed [facility] SARS-COV-2 COVID-19 PFIZER VACCINE 2021-04-24 00:00:00 Completed [facility] SARS-COV-2 COVID-19 PFIZER VACCINE 2021-04-24 00:00:00 Completed [facility] SARS-COV-2 COVID-19 PFIZER VACCINE 2021-04-24 00:00:00 Completed [facility] SARS-COV-2 COVID-19 PFIZER VACCINE 2021-04-24 00:00:00 Completed [facility] SARS-COV-2 COVID-19 PFIZER VACCINE 2021-04-24 00:00:00 Completed [facility] SARS-COV-2 COVID-19 PFIZER VACCINE 2021-04-24 00:00:00 Completed [facility] SARS-COV-2 COVID-19 PFIZER VACCINE 2021-04-24 00:00:00 Completed [facility] SARS-COV-2 COVID-19 PFIZER VACCINE 2021-04-24 00:00:00 Completed [facility] SARS-COV-2 COVID-19 PFIZER VACCINE 2021-04-24 00:00:00 Completed [facility] SARS-COV-2 COVID-19 PFIZER VACCINE 2021-04-24 00:00:00 Completed [facility] SARS-COV-2 COVID-19 PFIZER VACCINE 2021-04-24 00:00:00 Completed [facility] SARS-COV-2 COVID-19 PFIZER VACCINE 2021-04-24 00:00:00 Completed [facility] SARS-COV-2 COVID-19 PFIZER VACCINE 2021-04-24 00:00:00 Completed [facility] SARS-COV-2 COVID-19 PFIZER VACCINE 2021-04-24 00:00:00 Completed [facility] SARS-COV-2 COVID-19 PFIZER VACCINE 2021-04-24 00:00:00 Completed [facility] SARS-COV-2 COVID-19 PFIZER VACCINE 2021-04-24 00:00:00 Completed [facility] SARS-COV-2 COVID-19 PFIZER VACCINE 2021-04-24 00:00:00 Completed [facility] SARS-COV-2 COVID-19 PFIZER VACCINE 2021-04-24 00:00:00 Completed [facility] SARS-COV-2 COVID-19 PFIZER VACCINE 2021-04-24 00:00:00 Completed [facility] SARS-COV-2 COVID-19 PFIZER VACCINE 2021-04-24 00:00:00 Completed [facility] SARS-COV-2 COVID-19 PFIZER VACCINE 2021-04-24 00:00:00 Completed [facility] SARS-COV-2 COVID-19 PFIZER VACCINE 2021-04-24 00:00:00 Completed [facility] SARS-COV-2 COVID-19 PFIZER VACCINE 2021-04-24 00:00:00 Completed [facility] SARS-COV-2 COVID-19 PFIZER VACCINE 2021-04-24 00:00:00 Completed [facility] SARS-COV-2 COVID-19 PFIZER VACCINE 2021-04-24 00:00:00 Completed [facility] SARS-COV-2 COVID-19 PFIZER VACCINE 2021-04-24 00:00:00 Completed [facility] SARS-COV-2 COVID-19 PFIZER VACCINE 2021-04-24 00:00:00 Completed [facility] [place] SARS-COV-2 COVID-19 PFIZER VACCINE 2021-04-24 00:00:00 Completed [facility] [place] SARS-COV-2 COVID-19 PFIZER VACCINE 2021-04-24 00:00:00 Completed [facility] [place] SARS-COV-2 COVID-19 PFIZER VACCINE 2021-04-24 00:00:00 Completed [facility] [place] DTAP 2019-06-06 00:00:00 Completed [facility] [place] DTAP 2019-06-06 00:00:00 Completed [facility] [place] DTAP 2019-06-06 00:00:00 Completed [facility] [place] DTAP 2019-06-06 00:00:00 Completed [facility] [place] DTAP 2019-06-06 00:00:00 Completed [facility] [place] DTAP 2019-06-06 00:00:00 Completed [facility] [place] DTAP 2019-06-06 00:00:00 Completed [facility] [place] DTAP 2019-06-06 00:00:00 Completed [facility] [place] DTAP 2019-06-06 00:00:00 Completed [facility] [place] DTAP 2019-06-06 00:00:00 Completed [facility] [place] DTAP 2019-06-06 00:00:00 Completed [facility] [place] DTAP 2019-06-06 00:00:00 Completed [facility] [place] DTAP 2019-06-06 00:00:00 Completed [facility] [place] DTAP 2019-06-06 00:00:00 Completed [facility] [place] DTAP 2019-06-06 00:00:00 Completed [facility] [place] DTAP 2019-06-06 00:00:00 Completed [facility] [place] DTAP 2019-06-06 00:00:00 Completed [facility] [place] DTAP 2019-06-06 00:00:00 Completed [facility] [place] DTAP 2019-06-06 00:00:00 Completed [facility] [place] DTAP 2019-06-06 00:00:00 Completed [facility] [place] DTAP 2019-06-06 00:00:00 Completed [facility] [place] DTAP 2019-06-06 00:00:00 Completed [facility] [place] DTAP 2019-06-06 00:00:00 Completed [facility] [place] DTAP 2019-06-06 00:00:00 Completed [facility] [place] DTAP 2019-06-06 00:00:00 Completed [facility] [place] DTAP 2019-06-06 00:00:00 Completed [facility] [place] DTAP 2019-06-06 00:00:00 Completed [facility] [place] DTAP 2019-06-06 00:00:00 Completed [facility] [place] DTAP 2019-06-06 00:00:00 Completed [facility] [place] DTAP 2019-06-06 00:00:00 Completed [facility] [place] DTAP 2019-06-06 00:00:00 Completed [facility] [place] DTAP 2019-06-06 00:00:00 Completed [facility] [place] DTAP 2019-06-06 00:00:00 Completed [facility] [place] DTAP 2019-06-06 00:00:00 Completed [facility] [place] DTAP 2019-06-06 00:00:00 Completed [facility] [place] DTAP 2019-06-06 00:00:00 Completed [facility] [place] DTAP 2019-06-06 00:00:00 Completed [facility] [place] DTAP 2019-06-06 00:00:00 Completed [facility] [place] DTAP 2019-06-06 00:00:00 Completed [facility] [place] DTAP 2019-06-06 00:00:00 Completed [facility] [place] DTAP 2019-06-06 00:00:00 Completed [facility] [place] Zoster Vaccine Recombinant 2014-09-03 00:00:00 Completed [facility] [place] Zoster Vaccine Recombinant 2014-09-03 00:00:00 Completed [facility] [place] Zoster Vaccine Recombinant 2014-09-03 00:00:00 Completed [facility] [place] Zoster Vaccine Recombinant 2014-09-03 00:00:00 Completed [facility] [place] Zoster Vaccine Recombinant 2014-09-03 00:00:00 Completed [facility] [place] Zoster Vaccine Recombinant 2014-09-03 00:00:00 Completed [facility] [place] Zoster Vaccine Recombinant 2014-09-03 00:00:00 Completed [facility] [place] Zoster Vaccine Recombinant 2014-09-03 00:00:00 Completed [facility] [place] Zoster Vaccine Recombinant 2014-09-03 00:00:00 Completed [facility] [place] Zoster Vaccine Recombinant 2014-09-03 00:00:00 Completed [facility] [place] Zoster Vaccine Recombinant 2014-09-03 00:00:00 Completed [facility] [place] Zoster Vaccine Recombinant 2014-09-03 00:00:00 Completed [facility] [place] Zoster Vaccine Recombinant 2014-09-03 00:00:00 Completed [facility] [place] Zoster Vaccine Recombinant 2014-09-03 00:00:00 Completed [facility] [place] Zoster Vaccine Recombinant 2014-09-03 00:00:00 Completed [facility] [place] Zoster Vaccine Recombinant 2014-09-03 00:00:00 Completed [facility] [place] Zoster Vaccine Recombinant 2014-09-03 00:00:00 Completed [facility] [place] Zoster Vaccine Recombinant 2014-09-03 00:00:00 Completed [facility] [place] Zoster Vaccine Recombinant 2014-09-03 00:00:00 Completed [facility] [place] Zoster Vaccine Recombinant 2014-09-03 00:00:00 Completed [facility] [place] Zoster Vaccine Recombinant 2014-09-03 00:00:00 Completed [facility] [place] Zoster Vaccine Recombinant 2014-09-03 00:00:00 Completed [facility] [place] Zoster Vaccine Recombinant 2014-09-03 00:00:00 Completed [facility] [place] Zoster Vaccine Recombinant 2014-09-03 00:00:00 Completed [facility] [place] Zoster Vaccine Recombinant 2014-09-03 00:00:00 Completed [facility] [place] Zoster Vaccine Recombinant 2014-09-03 00:00:00 Completed [facility] [place] Zoster Vaccine Recombinant 2014-09-03 00:00:00 Completed [facility] [place] Zoster Vaccine Recombinant 2014-09-03 00:00:00 Completed [facility] [place] Zoster Vaccine Recombinant 2014-09-03 00:00:00 Completed [facility] [place] Zoster Vaccine Recombinant 2014-09-03 00:00:00 Completed [facility] [place] Zoster Vaccine Recombinant 2014-09-03 00:00:00 Completed [facility] [place] Zoster Vaccine Recombinant 2014-09-03 00:00:00 Completed [facility] [place] Zoster Vaccine Recombinant 2014-09-03 00:00:00 Completed [facility] [place] Zoster Vaccine Recombinant 2014-09-03 00:00:00 Completed [facility] [place] Zoster Vaccine Recombinant 2014-09-03 00:00:00 Completed [facility] [place] Zoster Vaccine Recombinant 2014-09-03 00:00:00 Completed [facility] [place] Zoster Vaccine Recombinant 2014-09-03 00:00:00 Completed [facility] [place] Zoster Vaccine Recombinant 2014-09-03 00:00:00 Completed [facility] [place] Zoster Vaccine Recombinant 2014-09-03 00:00:00 Completed [facility] [place] Zoster Vaccine Recombinant 2014-09-03 00:00:00 Completed [facility] [place] Zoster Vaccine Recombinant 2014-09-03 00:00:00 Completed [facility] [place] Zoster Vaccine Recombinant 2014-06-11 00:00:00 Completed [facility] [place] Zoster Vaccine Recombinant 2014-06-11 00:00:00 Completed [facility] [place] Zoster Vaccine Recombinant 2014-06-11 00:00:00 Completed [facility] [place] Zoster Vaccine Recombinant 2014-06-11 00:00:00 Completed [facility] [place] Zoster Vaccine Recombinant 2014-06-11 00:00:00 Completed [facility] [place] Zoster Vaccine Recombinant 2014-06-11 00:00:00 Completed [facility] [place] Zoster Vaccine Recombinant 2014-06-11 00:00:00 Completed [facility] [place] Zoster Vaccine Recombinant 2014-06-11 00:00:00 Completed [facility] [place] Zoster Vaccine Recombinant 2014-06-11 00:00:00 Completed [facility] [place] Zoster Vaccine Recombinant 2014-06-11 00:00:00 Completed [facility] [place] Zoster Vaccine Recombinant 2014-06-11 00:00:00 Completed [facility] [place] Zoster Vaccine Recombinant 2014-06-11 00:00:00 Completed [facility] [place] Zoster Vaccine Recombinant 2014-06-11 00:00:00 Completed [facility] [place] Zoster Vaccine Recombinant 2014-06-11 00:00:00 Completed [facility] [place] Zoster Vaccine Recombinant 2014-06-11 00:00:00 Completed [facility] [place] Zoster Vaccine Recombinant 2014-06-11 00:00:00 Completed [facility] [place] Zoster Vaccine Recombinant 2014-06-11 00:00:00 Completed [facility] [place] Zoster Vaccine Recombinant 2014-06-11 00:00:00 Completed [facility] [place] Zoster Vaccine Recombinant 2014-06-11 00:00:00 Completed [facility] [place] Zoster Vaccine Recombinant 2014-06-11 00:00:00 Completed [facility] [place] Zoster Vaccine Recombinant 2014-06-11 00:00:00 Completed [facility] [place] Zoster Vaccine Recombinant 2014-06-11 00:00:00 Completed [facility] [place] Zoster Vaccine Recombinant 2014-06-11 00:00:00 Completed [facility] [place] Zoster Vaccine Recombinant 2014-06-11 00:00:00 Completed [facility] [place] Zoster Vaccine Recombinant 2014-06-11 00:00:00 Completed [facility] [place] Zoster Vaccine Recombinant 2014-06-11 00:00:00 Completed [facility] [place] Zoster Vaccine Recombinant 2014-06-11 00:00:00 Completed [facility] [place] Zoster Vaccine Recombinant 2014-06-11 00:00:00 Completed [facility] [place] Zoster Vaccine Recombinant 2014-06-11 00:00:00 Completed [facility] [place] Zoster Vaccine Recombinant 2014-06-11 00:00:00 Completed [facility] [place] Zoster Vaccine Recombinant 2014-06-11 00:00:00 Completed [facility] [place] Zoster Vaccine Recombinant 2014-06-11 00:00:00 Completed [facility] [place] Zoster Vaccine Recombinant 2014-06-11 00:00:00 Completed [facility] [place] Zoster Vaccine Recombinant 2014-06-11 00:00:00 Completed [facility] [place] Zoster Vaccine Recombinant 2014-06-11 00:00:00 Completed [facility] [place] Zoster Vaccine Recombinant 2014-06-11 00:00:00 Completed [facility] [place] Zoster Vaccine Recombinant 2014-06-11 00:00:00 Completed [facility] [place] Zoster Vaccine Recombinant 2014-06-11 00:00:00 Completed [facility] [place] Zoster Vaccine Recombinant 2014-06-11 00:00:00 Completed [facility] [place] Zoster Vaccine Recombinant 2014-06-11 00:00:00 Completed [facility] [place] Zoster Vaccine Recombinant 2014-06-11 00:00:00 Completed [facility] [place] DTAP Unknown Completed [facility] [place] Zoster Vaccine Recombinant Unknown Completed [facility] [place] SARS-COV-2 COVID-19 PFIZER VACCINE Unknown Completed [facility] [place] Pneumococcal 20 Conjugate, PCV20 (Prevnar 20) Unknown Completed [facility] [place] Influenza Virus Vaccine,quad Im,preserve Free 65+ (FLUAD) Unknown Completed [facility] [place] DTAP Unknown Completed [facility] [place] Zoster Vaccine Recombinant Unknown Completed [facility] [place] SARS-COV-2 COVID-19 PFIZER VACCINE Unknown Completed [facility] [place] Pneumococcal 20 Conjugate, PCV20 (Prevnar 20) Unknown Completed [facility] [place] Influenza Virus Vaccine,quad Im,preserve Free 65+ (FLUAD) Unknown Completed [facility] [place] DTAP Unknown Completed [facility] [place] Zoster Vaccine Recombinant Unknown Completed [facility] [place] SARS-COV-2 COVID-19 PFIZER VACCINE Unknown Completed [facility] [place] Pneumococcal 20 Conjugate, PCV20 (Prevnar 20) Unknown Completed [facility] [place] Influenza Virus Vaccine,quad Im,preserve Free 65+ (FLUAD) Unknown Completed [facility] [place] DTAP Unknown Completed [facility] [place] Zoster Vaccine Recombinant Unknown Completed [facility] [place] SARS-COV-2 COVID-19 PFIZER VACCINE Unknown Completed [facility] [place] Pneumococcal 20 Conjugate, PCV20 (Prevnar 20) Unknown Completed [facility] [place] Influenza Virus Vaccine,quad Im,preserve Free 65+ (FLUAD) Unknown Completed [facility] [place] DTAP Unknown Completed [facility] [place] Zoster Vaccine Recombinant Unknown Completed [facility] [place] SARS-COV-2 COVID-19 PFIZER VACCINE Unknown Completed [facility] [place] Pneumococcal 20 Conjugate, PCV20 (Prevnar 20) Unknown Completed [facility] [place] Influenza Virus Vaccine,quad Im,preserve Free 65+ (FLUAD) Unknown Completed [facility] [place] DTAP Unknown Completed [facility] [place] Zoster Vaccine Recombinant Unknown Completed [facility] [place] SARS-COV-2 COVID-19 PFIZER VACCINE Unknown Completed [facility] [place] Pneumococcal 20 Conjugate, PCV20 (Prevnar 20) Unknown Completed [facility] [place] Influenza Virus Vaccine,quad Im,preserve Free 65+ (FLUAD) Unknown Completed [facility] [place] Vital Signs Vital Name Observation Time Observation Value Comments S luis Systolic blood pressure 2024-10-31 09:55:00 157 mm[Hg] [facility] Epic Diastolic blood pressure 2024-10-31 09:55:00 95 mm[Hg] [facility] Heart rate 2024-10-31 09:55:00 88 /min [facility] Body weight 2024-10-31 09:55:00 80.74 kg [facility]ak [facility] [place] BMI 2024-10-31 09:55:00 28.73 kg/m2 [facility] Systolic blood pressure 2024-10-31 09:55:00 157 mm[Hg] [facility] Epic Diastolic blood pressure 2024-10-31 09:55:00 95 mm[Hg] [facility] Epic Heart rate 2024-10-31 09:55:00 88 /min [facility] Body weight 2024-10-31 09:55:00 80.74 kg [facility]ak [facility] [place] BMI 2024-10-31 09:55:00 28.73 kg/m2 [facility] [place] Systolic blood pressure 2024-03-21 10:54:00 134 mm[Hg] [facility] Epic Diastolic blood pressure 2024-03-21 10:54:00 87 mm[Hg] [facility] Epic Heart rate 2024-03-21 10:54:00 90 /min [facility] [place] Body height 2024-03-21 10:54:00 167.6 cm [facility]ak [facility] [place] Body weight 2024-03-21 10:54:00 77.111 kg [facility]ak [facility] [place] BMI 2024-03-21 10:54:00 27.44 kg/m2 [facility] Systolic blood pressure 2024-03-21 10:54:00 134 mm[Hg] [facility] Epic Diastolic blood pressure 2024-03-21 10:54:00 87 mm[Hg] [facility] Epic Heart rate 2024-03-21 10:54:00 90 /min [facility] Body height 2024-03-21 10:54:00 167.6 cm Janak [facility] [place] Body weight 2024-03-21 10:54:00 77.111 kg [facility] BMI 2024-03-21 10:54:00 27.44 kg/m2 [facility] Systolic blood pressure 2022-11-04 19:13:00 122 mm[Hg] [facility] Diastolic blood pressure 2022-11-04 19:13:00 82 mm[Hg] [facility] Heart rate 2022-11-04 19:13:00 77 /min [facility] Body temperature 2022-11-04 19:13:00 35.83 Virgen [facility] [place] Body height 2022-11-04 19:13:00 168.9 cm [facility] Body weight 2022-11-04 19:13:00 68.901 kg [facility] BMI 2022-11-04 19:13:00 24.15 kg/m2 [facility] Systolic blood pressure 2022-10-03 19:25:00 127 mm[Hg] [facility] Diastolic blood pressure 2022-10-03 19:25:00 86 mm[Hg] [facility] Heart rate 2022-10-03 19:25:00 98 /min [facility] Body temperature 2022-10-03 19:25:00 36.28 Virgen [facility] [place] Body height 2022-10-03 19:25:00 168.9 cm [facility] Body weight 2022-10-03 19:25:00 67.767 kg [facility] BMI 2022-10-03 19:25:00 23.75 kg/m2 [facility] Procedures Procedure Date / Time Performed Performing Clinician Source XR hand 3+ views bilateral 2024-10-31 00:00:00 [facility] Sedimentation Rate 2024-10-31 00:00:00 [facility] Comprehensive Metabolic Panel 2024-10-31 00:00:00 [facility] Complete Blood Count w/Diff and Platelet 2024-10-31 00:00:00 [facility] C-Reactive Protein 2024-10-31 00:00:00 [facility] Iron + transferrin + TIBC 2024-10-31 00:00:00 [facility] DEXA bone density 2024-10-31 00:00:00 Mem orial [facility] COMPREHENSIVE METABOLIC PANEL 2024-10-07 12:02:00 Tammie Becker [facility] Sedimentation Rate 2024-04-23 00:00:00 [facility] Comprehensive Metabolic Panel 2024-04-23 00:00:00 [facility] Complete Blood Count w/Diff and Platelet 2024-04-23 00:00:00 [facility] C-Reactive Protein 2024-04-23 00:00:00 [facility] XR hand 3+ views bilateral 2024-03-21 00:00:00 [facility] [id number] 2024-01-21 00:00:00 [id number] [facility] INSURANCE CORRESPONDENCE 2023-01-20 05:01:00 Doc tor Unassigned, Piedra Aguza [facility] [place] DME/SUPPLY JUSTIFICATION 2022-12-02 06:01:00 Doc tor Unassigned, Piedra Aguza [facility] OP CORRESPONDENCE 2022-11-23 06:01:00 Doctor Viviana ssigned, Piedra Aguza [facility] [place] XR KNEE 3 VW RIGHT 2022-11-04 19:27:00 Julio César Priest [facility] [place] REFERRAL- REQUEST/RESPONSE 2022-11-04 06:01:00 Doctor Unassigned, Piedra Aguza [facility] [place] FLU VACC([id number]),65+YR,0.5 ML,IM,ADJUVANTED,QUAD(FLU AD) 2022-10-03 21:19:18 Doctor Unassigned, Piedra Aguza [facility] XR FOOT 3+ VW RIGHT 2022-10-03 19:38:56 Panchbhavi, Vi nod [facility] [place] XR ANKLE 3+ VW RIGHT 2022-10-03 19:38:41 Panchbhavi, V inod [facility] [place] Encounters Start Date/Time End Date/Time Encounter Type Admission Type Attending [facility] Care Facility Care Department Encounter ID Source 2024-12-19 00:00:00 2024-12-19 08:51:45 Telephone Tammie Becker [facility]umat[facility] [id number] Antonio clinton [facility] 2024-11-22 00:00:00 2024-11-22 13:06:57 [facility] [id number] Antonio clinton [facility] 2024-10-18 00:00:00 2024-11-18 23:47:46 Orders Only [facility] Rhe[facility] [id number] [id number] Antonio clinton [facility] 2024-10-31 10:00:00 2024-10-31 11:00:00 Infusion [id number], Rcoh Infusion Chair Rheumatol [facility] [id number] Antonio clinton [facility] 2024-10-31 10:00:00 2024-10-31 10:35:42 [facility] [id number] [id number] Antonio clinton [facility] 2024-10-31 09:39:04 2024-10-31 10:35:42 Outpatient Elective MARLEN BECKERNANCY [facility] M[facility]OUT [id number] [facility] 2024-10-31 09:38:47 2024-10-31 10:35:35 Outpatient Elective M[facility]OUT MHEOUT [id number] [facility] 2024-10-10 00:00:00 2024-10-10 12:35:43 Refill Tuliva, Gc Tuliva, Gc Rheumatol [facility] [id number] [id number] Antonio clinton [facility] 2024-10-07 00:00:00 2024-10-07 23:34:39 Orders Only Tammie Becker [facility] [id number] [id number] [facility] 2024-09-01 00:00:00 2024-09-04 08:40:03 Refill [facility] [id number] 8.2.7.2.686 [id number] [facility] 2024-07-25 00:00:00 2024-07-25 17:38:06 Refill Radha Blackwell Rheumat[facility] [id number] [id number] [id number] [facility] 2024-07-25 13:00:00 2024-07-25 13:13:56 Office Visit Tammie Becker Rheumatol [facility] [id number] [id number] [id number] [facility] 2024-07-25 12:43:59 2024-07-25 13:13:56 Outpatient Elective TAMMIE BECKER EOUT [facility] [id number] [facility] 2024-05-16 00:00:00 2024-05-16 15:41:29 Refill Tammie Becker Rheumatol [facility] [id number] 8.2.7.2.686 [id number] Memoria [facility] 2024-04-24 00:00:00 2024-04-24 07:13:19 Refill Rachelle Hines, Rachelle Rheumatol ogy [facility] 1.840.114 [id number] 8.2.7.2.686 [id number] Antonio Aburto [facility] 2024-04-23 13:20:00 2024-04-23 13:40:34 [facility] 1.2840.114 350.1.13.70 8.2.7.2.686 [id number] Antonio Aburto [facility] 2024-04-23 12:55:27 2024-04-23 13:40:34 Outpatient TAMMIE BECKER [facility] [id number] [facility] 2024-03-21 11:00:00 2024-03-21 11:33:17 Office Visit Tammie Becker Rheumatol ogy [facility] 1.840.114 350.1.13.70 8.2.7.2.686 [id number] [facility]-21 10:53:17 2024-03-21 11:33:17 Outpatient TAMMIE BECKER [facility]OUT M[facility]OUT [id number] [facility] 2024-03-12 00:00:00 2024-03-12 16:38:31 Telephone Tammie Becker Rheumatol ogy [facility] 1.840.114 350.1.13.70 8.2.7.2.686 [id number] 5 Antonio clinton [facility] 2024-02-20 00:00:00 2024-02-20 12:02:59 Refill Levy Garcia [facility] 1.2.840.114 350.1.13.10 4.2.7.2.686 [id number] 044 [id number] [facility] 2024-01-21 22:21:00 2024-01-25 13:49:00 Inpatient EM Jovana Knott HCAMN TELE [id number] [facility] 2024-01-23 00:07:00 2024-01-23 00:07:00 Outpatient Jovana Knott HCACL LABO [id number] [facility] 2023-12-11 00:00:00 2023-12-11 00:00:00 Refill Jose Counts include 234 beds at the [facility] MADISYN?[facility] 1.2.840.114 350.1.13.10 4.2.7.2.686 [id number] 044 [id number] [facility] 2023-04-17 00:00:00 2023-04-17 00:00:00 Refill Sandy PrasadFormerly [facility] MADISYN?[facility] 1.2.840.114 350.1.13.10 4.2.7.2.686 [id number] 044 [id number] [facility] 2023-04-11 00:00:00 2023-04-11 00:00:00 Refill Jose Counts include 234 beds at the [facility] MADISYN?[facility] 1.2840.114 350.1.13.10 4.2.7.2.686 [id number] 044 [id number] [facility] 2023-04-07 00:00:00 2023-04-07 00:00:00 Refill Sandy PrasadFormerly [facility] MADISYN?[facility] 1.2840.114 350.1.13.10 4.2.7.2.686 [id number] 044 [id number] [facility] 2023-03-08 00:00:00 2023-03-08 00:00:00 Refill Jose Counts include 234 beds at the [facility] MADISYN?[facility] 1.2.840.114 350.1.13.10 4.2.7.2.686 [id number] 044 [id number] [facility] 2023-03-06 00:00:00 2023-03-06 00:00:00 Refill Sandy Prasadthia [facility] MADISYN?[facility] 1.840.114 350.1.13.10 4.2.7.2.686 [id number] 044 [id number] [facility] 2023-02-06 13:30:00 2023-02-06 13:30:00 Outpatient R JULIO CÉSAR PRIEST [facility] [id number] [facility] 2023-01-31 13:30:00 2023-01-31 13:30:00 Outpatient R RERE RAMSAY [facility] [id number] [facility] 2023-01-27 00:00:00 2023-01-27 00:00:00 Outpatient KATINA PRINCE CHRISTINE [facility] [id number] [facility] 2023-01-26 00:00:00 2023-01-26 00:00:00 Nessa Sandy PrasadFormerly [facility] MADISYN?[facility] 1.840.114 350.1.13.10 4.2.7.2.686 [id number] 044 [id number] [facility] 2023-01-23 14:00:00 2023-01-23 14:00:00 Outpatient JONN BAZAN [facility] [id number] [facility] 2023-01-23 00:00:00 2023-01-23 00:00:00 Refill Sandy PrasadFormerly [facility] MADISYN?[facility] 1.840.114 350.1.13.10 4.2.7.2.686 [id number] 044 [id number] [facility] 2023-01-20 00:00:00 2023-01-20 00:00:00 Orders Only Doctor Unassigned, Piedra Aguza [facility] 1.840.114 350.1.13.10 4.2.7.2.686 [id number] [facility] 2023-01-20 00:00:00 2023-01-20 00:00:00 Letter (Out) Con Zapata Andrea [facility] 1.840.114 350.1.13.10 4.2.7.2.686 [id number] 092 [id number] [facility] 2023-01-20 00:00:00 2023-01-20 00:00:00 Patient Secure Msg Doctor Unassigned, Piedra Aguza [facility] 1.840.114 350.1.13.10 4.2.7.2.686 [id number] 044 [id number] [facility] 2023-01-19 00:00:00 2023-01-19 00:00:00 Outpatient R KATINA DONOHUE KATINA [facility] [id number] [facility] 2023-01-13 16:15:00 2023-01-13 16:16:36 Outpatient KATINA PRINCE CHRISTINE [facility] [id number] [facility] 2023-01-10 10:30:00 2023-01-10 10:30:00 Outpatient JONN BAZAN [facility] [id number] [facility] 2023-01-06 00:00:00 2023-01-06 00:00:00 Patient Secure Msg Doctor Unassigned, Piedra Aguza [facility] 1.840.114 350.1.13.10 4.2.7.2.686 [id number] 019 [id number] [facility] 2023-01-04 00:00:00 2023-01-04 00:00:00 Telephone Brandon Prasad [facility] MEDICAL OFFICE [facility] 1.840.114 350.1.13.10 4.2.7.2.686 [id number] 044 [id number] [facility] 2022-12-29 00:00:00 2022-12-29 00:00:00 Patient Secure Msg Doctor Unassigned, Piedra Aguza [facility] 1.2840.114 350.1.13.10 4.2.7.2.686 [id number] [facility] 2022-12-28 00:00:00 2022-12-28 00:00:00 Refill Levy Garcia [facility] 1.84.114 350.1.13.10 4.2.7.2.686 [id number] 044 [id number] [facility] 2022-12-28 00:00:00 2022-12-28 00:00:00 Refill Sandy Prasadthia [facility] 1.84.114 350.1.13.10 4.2.7.2.686 [id number] 044 [id number] [facility] 2022-12-26 00:00:00 2022-12-26 00:00:00 Refill Kvng De Luna [facility] 1.284.114 350.1.13.10 4.2.7.2.686 [id number] 044 [id number] [facility] 2022-12-25 00:00:00 2022-12-25 00:00:00 Patient Secure Msg Doctor Unassigned, Piedra Aguza [facility] 1.284.114 350.1.13.10 4.2.7.2.686 [id number] [facility] 2022-12-23 16:00:00 2022-12-23 16:13:52 Outpatient KATINA PRINCE [facility]RISTINE [facility] [id number] [facility] 2022-12-12 00:00:00 2022-12-12 00:00:00 [facility] 1.2840.114 350.1.13.10 4.2.7.2.686 [id number] 044 [id number] [facility] 2022-12-09 13:30:00 2022-12-09 14:05:44 Outpatient Nikolai DONOHUE, KATINA JONES [facility] [id number] [facility] 2022-12-08 00:00:00 2022-12-08 00:00:00 Telephone Sandy PrasadFormerly [facility] MADISYN?[facility] 1.2840.114 350.1.13.10 4.2.7.2.686 [id number] 044 [id number] [facility] 2022-12-05 00:00:00 2022-12-05 00:00:00 Refill Sandy PrasadFormerly [facility] MADISYN?[facility] 1.20.114 350.1.13.10 4.2.7.2.686 [id number] 044 [id number] [facility] 2022-12-03 00:00:00 2022-12-03 00:00:00 Refill Eric PrasadCritical access hospitalNAEEM MARS?[facility] 1.20.114 350.1.13.10 4.2.7.2.686 [id number] 044 [id number] [facility] 2022-12-02 00:00:00 2022-12-02 00:00:00 Orders Only Doctor Unassigned, Piedra Aguza [facility] 1.2840.114 350.1.13.10 4.2.7.2.686 [id number] [facility] 2022-12-02 00:00:00 2022-12-02 00:00:00 Refill Sandy PrasadFormerly [facility] MADISYN?[facility] 1.2.114 350.1.13.10 4.2.7.2.686 [id number] 044 [id number] [facility] 2022-12-01 00:00:00 2022-12-01 00:00:00 [facility] 1.2840.114 350.1.13.10 4.2.7.2.686 [id number] 044 [id number] [facility] 2022-11-28 00:00:00 2022-11-28 00:00:00 Telephone Katina Donohue [facility] 1.0.114 350.1.13.10 4.2.7.2.686 [id number] [facility] 2022-11-23 00:00:00 2022-11-23 00:00:00 Orders Only Doctor Unassigned, Piedra Aguza [facility] 1.0.114 350.1.13.10 4.2.7.2.686 [id number] [facility] 2022-11-22 00:00:00 2022-11-22 00:00:00 Telephone Katina Donohue [facility] 1.2840.114 350.1.13.10 4.2.7.2.686 [id number] [facility] 2022-11-17 00:00:00 2022-11-17 00:00:00 Telephone Julio César Priest [facility] 1.840.114 350.1.13.10 4.2.7.2.686 [id number] [facility] 2022-11-11 14:00:00 2022-11-11 15:15:16 Outpatient R KATINA DONOHUE [facility]STINE [facility] [id number] [facility] 2022-11-04 13:17:50 2022-11-04 23:59:00 Hospital Encounter Julio César Priest [facility] 1.2.840.114 350.1.13.10 4.2.7.2.686 [id number] [facility] 2022-11-04 13:00:00 2022-11-04 14:22:17 Outpatient R JULIO CÉSAR PRIEST [facility] [id number] [facility] 2022-11-04 13:00:00 2022-11-04 14:22:17 Office Visit Julio César Priest [facility] 1.2.840.114 350.1.13.10 4.2.7.2.686 [id number] [facility] 2022-11-03 00:00:00 2022-11-03 00:00:00 Telephone [facility] 1.2.840.114 350.1.13.10 4.2.7.2.686 [id number] 044 [id number] [facility] 2022-11-01 13:00:00 2022-11-01 13:00:00 Outpatient KATINA PRINCE [facility]STINE [facility] [id number] [facility] 2022-10-03 13:28:47 2022-10-03 23:59:00 Hospital Encounter Arnulfo Greene [facility] 1.2.840.114 350.1.13.10 4.2.7.2.686 [id number] [facility] 2022-10-03 13:28:36 2022-10-03 23:59:00 Hospital Encounter Arnulfo Greene [facility] 1.2840.114 350.1.13.10 4.2.7.2.686 [id number] [facility] 2022-10-03 13:00:00 2022-10-03 14:48:29 Outpatient R ARNULFO GREENE [facility] [id number] [facility] 2022-10-03 13:00:00 2022-10-03 14:48:29 Office Visit Deeptikarl Arnulfo [facility] 1.2840.114 350.1.13.10 4.2.7.2.686 [id number] [facility] 2022-10-03 10:00:00 2022-10-03 10:20:00 Nurse Visit Nurse, Heber [facility] 1.2840.114 350.1.13.10 4.2.7.2.686 [id number] 044 [id number] [facility] 2022-09-26 00:00:00 2022-09-26 00:00:00 Daniela Pattiluz marinaSandyBrandonWatauga Medical CenterNAEEM M[facility] 1.2840.114 350.1.13.10 4.2.7.2.686 [id number] 044 [id number] [facility] 2022-09-19 00:00:00 2022-09-19 00:00:00 Daniela ArmstrongSandy razaWatauga Medical CenterNAEEM MARS?[facility] 1.284.114 350.1.13.10 4.2.7.2.686 [id number] 044 [id number] [facility] 2022-09-07 00:00:00 2022-09-07 00:00:00 Refsharon Sandy PrasadWatauga Medical CenterNAEEM MARS?[facility] 1.284.114 350.1.13.10 4.2.7.2.686 [id number] [id number] [facility] 2022-09-05 00:00:00 2022-09-05 00:00:00 Refsharon Pr[facility]ad [facility] 1.2.840.114 350.1.13.10 4.2.7.2.686 [id number] [facility] 2022-08-26 00:00:00 2022-08-26 00:00:00 RefSandy OlveraFormerly [facility] MADISYN?[facility] 1.2.840.114 350.1.13.10 4.2.7.2.686 [id number] 044 [id number] [facility] 2022-08-01 13:30:00 2022-08-01 13:30:00 Outpatient R ARNULFO GREENE [facility] [id number] [facility] 2022-07-19 00:00:00 2022-07-19 00:00:00 Refsharon Prasad [facility] MADISYN?[facility] 1.2.840.114 350.1.13.10 4.2.7.2.686 [id number] 044 [id number] [facility] 2022-07-19 00:00:00 2022-07-19 00:00:00 Refsharon Prasad [facility] MADISYN?[facility] 1.2.840.114 350.1.13.10 4.2.7.2.686 [id number] 044 [id number] [facility] 2022-07-18 11:30:00 2022-07-18 11:30:00 Outpatient R DC MARCELINO SHIWAN [facility] [id number] [facility] 2022-07-04 14:40:00 2022-07-04 14:40:00 Outpatient R ARNULFO GREENE [facility] [id number] [facility] 2022-06-29 11:34:43 2022-06-29 23:59:00 Outpatient R BRANDON PRASAD [facility] [id number] [facility] 2022-06-29 11:20:00 2022-06-29 23:59:00 Hospital Encounter Brandon Prasad [facility] 1..840.114 350.1.13.10 4.2.7.2.686 [id number] [facility] 2022-06-24 00:00:00 2022-06-24 00:00:00 Telephone Arnulfo Greene [facility] 1..840.114 350.1.13.10 4.2.7.2.686 [id number] [facility] 2022-06-03 14:30:00 2022-06-03 14:45:00 Client Relations Representative Visit Lab, Heber Almendarez Osmar [facility] MADISYN?CITLALICitlali [facility] 1..840.114 350.1.13.10 4.2.7.2.686 [id number] [facility] 2022-06-03 14:30:00 2022-06-03 14:30:00 [facility] [id number] [facility] 2022-06-03 13:00:00 2022-06-03 14:22:27 Outpatient R BRANDON PRASAD [facility] [id number] [facility] 2022-06-03 13:00:00 2022-06-03 14:22:27 [facility] [id number] [facility] 2022-06-03 13:00:00 2022-06-03 14:22:27 Office Visit Osmar [facility] MADISYN?[facility] 1.2.840.114 350.1.13.10 4.2.7.2.686 [id number] 044 [id number] [facility] 2022-06-03 00:00:00 2022-06-03 00:00:00 Refill Osmar [facility] MADISYN?[facility] 1.2.840.114 350.1.13.10 4.2.7.2.686 [id number] 044 [id number] [facility] 2022-06-03 00:00:00 2022-06-03 00:00:00 Refill Brandon Prasad [facility] GIBSON MARS?[facility] BUILD[facility] 1.2.840.114 350.1.13.10 4.2.7.2.686 [id number] [facility] 2022-06-03 00:00:00 2022-06-03 00:00:00 Orders Only Doctor Unassigned, Piedra Aguza [facility] 1.2.840.114 350.1.13.10 4.2.7.2.686 [id number] [facility] Results Test Description Test Time Test Comments Results Result Co mments Source [facility] MET[facility]OL[facility] [id number] 06:38:00* Test Item Value Reference Range Interpretation Comme nts SODIUM (test code = NA) 140 mmol/l 134.0-147.0 N POTASSIUM (test code = K) 4.0 mmol/L 3.6-5.2 N CHLORIDE (test code = CL) 108 mmol/l 98.0-107.0 H CARBON DIOXIDE (test code = CO2) 23.2 mmol/l 21.0-33.0 N ANION GAP (test code = GAP) 12.8 0-20 N GLUCOSE (test code = GLU) 102 mg/dl 70.0-110.0 N BLOOD UREA NITROGEN (test code = BUN) 5 mg/dl 7.0-18.0 L GLOMERULAR FILTRATION RATE (test code = GFR) 96 mL/min The Glomerular Filtration Rate is a calculated parameterbased on serum Creatinine, patient age and sex. GFR valuesless than 60 mL/min/1.73 square meters are indicative ofChronic Kidney Disease. Values less than 15 mL/min/1.73square meters indicate Kidney failure. The calculation forGFR is based on the CKD-EPI (2020) calculation. This formulais race indifferent and is the recommended formula for GFRby the National Kidney Foundation for Adults.The GFR will not calculate if the sex is unknown or if thepatient's age is <18 years. CREATININE (test code = CREAT) 0.62 mg/dL 0.60-1.30 N ESTIMATED CREAT CLEARANCE (test code = ECRCL) 79 mL/min >30 TOTAL PROTEIN (test code = PROT) 5.7 GM/DL 6.0-8.1 L ALBUMIN (test code = ALB) 2.5 gm/dL 3.2-4.7 L CALCIUM (test code = CA) 7.9 mg/dl 8.0-10.5 L BILIRUBIN TOTAL (test code = BILT) 0.4 mg/dl 0.0-1.0 N SGOT/AST (test code = AST) 22 Units/L 15-37 N SGPT/ALT (test code = ALT) 22 Units/L 12.0-78.0 N ALKALINE PHOSPHATASE TOTAL (test code = ALKP) 48 Units/L 50.0-136.0 L CBC W/AUTO [id number] 05:52:00* Test Item Value Reference Range Interpretation Comme nts WHITE BLOOD CELL (test code = WBC) 4.1 K/mm3 4.5-11.0 L RED BLOOD CELL (test code = RBC) 3.52 M/mm3 3.80-5.20 L HEMOGLOBIN (test code = HGB) 10.1 gm/dL 12.0-16.0 L HEMATOCRIT (test code = HCT) 31.5 % 36.0-48.0 L MEAN CELL VOLUME (test code = MCV) 89.5 UM3 82.0-99.0 N MEAN CELL HGB (test code = MCH) 28.7 UUG 25.5-32.5 N MEAN CELL HGB CONCETRATION (test code = MCHC) 32.1 gm/dL 29.0-35.5 N RED CELL DISTRIBUTION WIDTH (test code = RDW) 13.9 % 11.5-15.0 N RED CELL DISTRIBUTION WIDTH SD (test code = RDW-SD) 45.2 fL 34.8-50.2 N PLATELET COUNT (test code = PLT) 231 K/mm3 150-400 N MEAN PLATELET VOLUME (test c ode = MPV) 9.9 fl 7.4-10.4 N NEUTROPHIL % (test code = NT%) 63.5 % 49.0-76.0 N IMMATURE GRANULOCYTE % (test code = IG%) 0.2 % 0.0-0.4 N LYMPHOCYTE % (test code = LY%) 24.6 % 23.0-38.0 N MONOCYTE % (test code = MO%) 10.5 % 1.0-10.0 H EOSINOPHIL % (test code = EO%) 0.5 % 1.0-5.0 L BASOPHIL % (test code = BA%) 0.7 % 0.0-1.0 N NUCLEATED RBC % (test code = NRBC%) 0.0 % 0.0-0.1 N NEUTROPHIL # (test code = NT#) 2.6 K/mm3 2.4-6.3 N IMMATURE GRANULOCYTE # (test code = IG#) 0.01 x10 3/uL 0.00-0.07 N LYMPHOCYTE # (test code = LY#) 1.0 K/mm3 1.2-4.0 L MONOCYTE # (test code = MO#) 0.4 K/mm3 0.0-0.6 N EOSINOPHIL # (test code = EO#) 0.0 K/MM3 0.0-0.7 N BASOPHIL # (test code = BA#) 0.0 K/mm3 0.0-0.2 N NUCLEATED RBC # (test code = NRBC#) 0.00 X10 3uL 0.00-0.01 N CBC W/AUTO [id number] 04:48:00* Test Item Value Reference Range Interpretation Comme nts WHITE BLOOD CELL (test code = WBC) 6.4 K/mm3 4.5-11.0 N RED BLOOD CELL (test code = RBC) 3.26 M/mm3 3.80-5.20 L HEMOGLOBIN (test code = HGB) 9.5 gm/dL 12.0-16.0 L HEMATOCRIT (test code = HCT) 29.6 % 36.0-48.0 L MEAN CELL VOLUME (test code = MCV) 90.8 UM3 82.0-99.0 N MEAN CELL HGB (test code = MCH) 29.1 UUG 25.5-32.5 N MEAN CELL HGB CONCETRATION (test code = MCHC) 32.1 gm/dL 29.0-35.5 N RED CELL DISTRIBUTION WIDTH (test code = RDW) 13.9 % 11.5-15.0 N RED CELL DISTRIBUTION WIDTH SD (test code = RDW-SD) 46.3 fL 34.8-50.2 N PLATELET COUNT (test code = PLT) 226 K/mm3 150-400 N MEAN PLATELET VOLUME (test c ode = MPV) 9.9 fl 7.4-10.4 N NEUTROPHIL % (test code = NT%) 75.5 % 49.0-76.0 N IMMATURE GRANULOCYTE % (test code = IG%) 0.3 % 0.0-0.4 N LYMPHOCYTE % (test code = LY%) 14.3 % 23.0-38.0 L MONOCYTE % (test code = MO%) 9.4 % 1.0-10.0 N EOSINOPHIL % (test code = EO%) 0.2 % 1.0-5.0 L BASOPHIL % (test code = BA%) 0.3 % 0.0-1.0 N NUCLEATED RBC % (test code = NRBC%) 0.0 % 0.0-0.1 N NEUTROPHIL # (test code = NT#) 4.8 K/mm3 2.4-6.3 N IMMATURE GRANULOCYTE # (test code = IG#) 0.02 x10 3/uL 0.00-0.07 N LYMPHOCYTE # (test code = LY#) 0.9 K/mm3 1.2-4.0 L MONOCYTE # (test code = MO#) 0.6 K/mm3 0.0-0.6 N EOSINOPHIL # (test code = EO#) 0.0 K/MM3 0.0-0.7 N BASOPHIL # (test code = BA#) 0.0 K/mm3 0.0-0.2 N NUCLEATED RBC # (test code = NRBC#) 0.00 X10 3uL 0.00-0.01 N COMPREHENSIVE METABOLIC [id number] 04:07:00* Test Item Value Reference Range Interpretation Comme nts SODIUM (test code = NA) 136 mmol/l 134.0-147.0 N POTASSIUM (test code = K) 3.6 mmol/L 3.6-5.2 N CHLORIDE (test code = CL) 105 mmol/l 98.0-107.0 N CARBON DIOXIDE (test code = CO2) 24.7 mmol/l 21.0-33.0 N ANION GAP (test code = GAP) 9.9 0-20 N GLUCOSE (test code = GLU) 116 mg/dl 70.0-110.0 H BLOOD UREA NITROGEN (test code = BUN) 3 mg/dl 7.0-18.0 L GLOMERULAR FILTRATION RATE (test code = GFR) 95 mL/min The Glomerular Filtration Rate is a calculated parameterbased on serum Creatinine, patient age and sex. GFR valuesless than 60 mL/min/1.73 square meters are indicative ofChronic Kidney Disease. Values less than 15 mL/min/1.73square meters indicate Kidney failure. The calculation forGFR is based on the CKD-EPI (202) calculation. This formulais race indifferent and is the recommended formula for GFRby the National Kidney Foundation for Adults.The GFR will not calculate if the sex is unknown or if thepatient's age is <18 years. CREATININE (test code = CREAT) 0.63 mg/dL 0.60-1.30 N ESTIMATED CREAT CLEARANCE (test code = ECRCL) 78 mL/min >30 TOTAL PROTEIN (test code = PROT) 5.3 gm/dL 6.4-8.2 L ALBUMIN (test code = ALB) 2.4 gm/dl 3.2-4.7 L CALCIUM (test code = CA) 7.5 mg/dl 8.0-10.5 L BILIRUBIN TOTAL (test code = BILT) 0.3 mg/dl 0.0-1.0 N SGOT/AST (test code = AST) 25 Units/L 15-37 N SGPT/ALT (test code = ALT) 22 Units/L 12.0-78.0 N ALKALINE PHOSPHATASE TOTAL (test code = ALKP) 41 Units/L 50.0-136.0 L [id number] 04:07:00* Test Item Value Reference Range Interpretation Comme nts MAGNESIUM (test code = MAG) 1.8 mg/dl 1.8-2.4 N - MRI [id number] 15:57:00 [facility] [place] VIKTOR[place] CR :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 patient's age to complete this topic Hepatitis B Vaccines Aged Out No long er eligible based on patient's age to complete this topic IPV Vaccines Aged Out No longer eligi ble based on patient's age to complete this topic Meningococcal Vaccine Aged Out No vandana juno eligible based on patient's age to complete this topic Rotavirus Vaccines Aged Out No longer eligible based on patient's age to complete this topic [facility] 11:48:34 Diagnosis Multiple joint pain - Primary Pain in joint, multiple sites Osteopenia of neck of left f emur Renal insufficiency Unspecified disorder of kidney and ureter Psoriatic arthritis (HCC) Psoriatic arthropathy [facility]yz[facility]29[facility]58[facility]54 11:48:34 [facility]65[facility]-07 16:38:33Upcoming Encounters Health Maintenance Due Date Last Done Comments CT Colonography 1955 Colonoscopy 1955 Colorectal Cancer Screening 1955 FIT-DNA 1953 FIT 1953 FOBT 1953 Lipid Panel 1955 Medicare Annual Wellness (AWV) 1953 Sigmoidoscopy 1953 Pneumococcal Vaccine: 65+ Ye ars (1 of 2 - PCV) 1959 DTaP/Tdap/Td Vaccines (1 - Tdap) 1972 Mammogram 1993 Zoster Vaccines (1 of 2) 2003 Respiratory Syncytial Virus (RSV) or >=60 (1 - 1-dose 60+ series) 2013 Influenza Vaccine (Season Ended) 2024 HIB Vaccines Aged Out No longer eligi ble based on patient's age to complete this topic HPV Vaccines Aged Out No longer eligi ble based on patient's age to complete this topic Hepatitis A Vaccines Aged Out No long er eligible based on patient's age to complete this topic Hepatitis B Vaccines Aged Out No long er eligible based on patient's age to complete this topic IPV Vaccines Aged Out No longer eligi ble based on patient's age to complete this topic Meningococcal Vaccine Aged Out No vandana juno eligible based on patient's age to complete this topic Rotavirus Vaccines Aged Out No longer eligible based on patient's age to complete this topic [id number] 16:38:33 [place] [id number] 16:37:40 Received alert pt with h/o cardiomyopathy. Called and talked with pt, pt denies ever told cardiomyopathy or heart failure, reports was told she has leaky valve. Rec pt to contact cardiology and fax recent note to us. Pt understands and agree with plans. [facility]tprekm4354-54-65 16:37:36 ----- Message from Fuad Arroyo sent at 03/12/2024 9:13 AM CDT ----- [id number] Safety and Health Consideration [facility]bxnpse8337-45-87 11:51:41 Viktoria Cr is a 68 year old female. Received fax for gabapentin 800 mg tab for 90 day supply . [facility] 14:29:00 [facility] ([facility] Pulmonology Progress Note REPORT#:[id number] REPORT STATUS: Signed REPORT INITIALIZATION DATE:01/25/24 TIME: 1428 PATIENT: VIKTORIA CR UNIT #: [id number] ROOM/BED: [place] [address] : 53 AGE: 68 SEX: F ATTEND: Jovana Knott MD ADM AUTHOR: Cesario Sampson MD REPT SERVICE DT/TIME: 01/25/241428 * ALL edits or amendments must be made on the electronic/computer document * Subjective Chief complaint: abd pain Comments: doing well sob is better ROS: no n/v/cp Objective General VS/I O: Last Documented: Result Date Time Pulse Ox 97 01/24 1102 B/P 145/79 01/24 1102 B/P Mean 101.1 01/24 1102 Temp 98.2 01/24 1102 Pulse 66 01/24 1102 Resp 18 01/24 1102 O2 Delivery Room air 01/23 2340 O2 Flow Rate 2 01/22 1932 PATIENT WEIGHT: Weight (lb): Weight (oz): Weight (kg): 81.818 Physical Exam General appearance: chronically ill appearing Head/eyes: atraumatic, normocephalic, PERRL, EOMI, clear cornea, normal conjunctiva/sclera, normal fundi, normal eyelids/periorb. ENT: ENT: normal dentition, normal ear left, normal ear right, normal nose, normal pharynx, normal sinus Neck: full range of motion, non-tender, normal thyroid, supple/no meningismus, no bruit/NL carotids, no JVD, no lymphadenopathy, no masses or swelling Cardiovascular: regular rate rhythm Respiratory/chest: decreased breath sounds Abdomen: soft, non-tender, no distention, no guarding, no mass/organomegaly, no rebound Extremities: moves all, normal capillary refill, no edema Musculoskeletal: full range of motion, normal inspection Neuro/SOLE LEVELER: alert, oriented X 3 Skin: dry, intact Lymphatics: axilla normal, inguinal normal, neck normal, no lymphadenopathy Psychiatry: normal affect, normal judgment/insight, normal mood, not homicidal, not suicidal, no hallucinations Results Findings/Data: Laboratory Tests 01/25/24507: [Embedded Image Not Available] Laboratory Tests 01/25 508 Chemistry Sodium (134.0 - 147.0 mmol/l) 140 Potassium (3.6 - 5.2 mmol/L) 4.0 Chloride (98.0 - 107.0 mmol/l) 108 H Carbon Dioxide (21.0 - 33.0 mmol/l) 23.2 Anion Gap (0 - 20) 12.8 BUN (7.0 - 18.0 mg/dl) 5 L Creatinine (0.60 - 1.30 mg/dL) 0.62 Estimated Creat Clear (>30 mL/min) 79 Glomerular Filtr Rate (mL/min) 96 Glucose (70.0 - 110.0 mg/dl) 102 Calcium (8.0 - 10.5 mg/dl) 7.9 L Total Bilirubin (0.0 - 1.0 mg/dl) 0.4 AST (15 - 37 Units/L) 22 ALT (12.0 - 78.0 Units/L) 22 Total Alk Phosphatase (50.0 - 136.0 Units/L) 48 L Total Protein (6.0 - 8.1 GM/DL) 5.7 L Albumin (3.2 - 4.7 gm/dL) 2.5 L Laboratory Tests 01/25 508 Hematology WBC (4.5 - 11.0 K/mm3) 4.1 L RBC (3.80 - 5.20 M/mm3) 3.52 L Hgb (12.0 - 16.0 gm/dL) 10.1 L Hct (36.0 - 48.0 %) 31.5 L MCV (82.0 - 99.0 UM3) 89.5 MCH (25.5 - 32.5 UUG) 28.7 MCHC (29.0 - 35.5 gm/dL) 32.1 RDW (11.5 - 15.0 %) 13.9 Plt Count (150 - 400 K/mm3) 231 MPV (7.4 - 10.4 fl) 9.9 Neut % (Auto) (49.0 - 76.0 %) 63.5 Lymph % (Auto) (23.0 - 38.0 %) 24.6 Twiggs % (Auto) (1.0 - 10.0 %) 10.5 H Eos % (Auto) (1.0 - 5.0 %) 0.5 L Baso % (Auto) (0.0 - 1.0 %) 0.7 Neut # (Auto) (2.4 - 6.3 K/mm3) 2.6 Lymph # (Auto) (1.2 - 4.0 K/mm3) 1.0 L Twiggs # (Auto) (0.0 - 0.6 K/mm3) 0.4 Eos # (Auto) (0.0 - 0.7 K/MM3) 0.0 Baso # (Auto) (0.0 - 0.2 K/mm3) 0.0 Absolute Nucleated RBC (0.00 - 0.01 X10 3uL) 0.00 Immature Gran % (0.0 - 0.4 %) 0.2 Nucleated RBC % (0.0 - 0.1 %) 0.0 Immature Gran # (0.00 - 0.07 x10 3/uL) 0.01 Diagnosis, Assessment Plan Free Text A P: 1. Sepsis with shock Suspected sepsis based on leukocytosis Empiric antibiotics Follow cultures Given abdominal pain initially, GI and general surgery consulted -> US noted Weaned Levophed Follow labs and cultures overall improved 2. Leukocytosis Significant Monitor closely improving 3. Hypokalemia resolved 4. Hypoxemia Oxygen weaned okay to dc at 1430 RPT #:[id number] END OF [id number] 13:07:00 [facility] ([facility]) Hospitalist Discharge Summary REPORT#:[id number] REPORT STATUS: Signed REPORT INITIALIZATION DATE:01/25/24 TIME: 1307 PATIENT: VIKTORIA CR UNIT #: [id number] ROOM/BED: [place] [address] : 53 AGE: 68 SEX: F ATTEND: Jovana Knott MD ADM AUTHOR: Wood Gayle MD REPT SERVICE DT/TIME: 01/25/24 6814 * ALL edits or amendments must be made on the electronic/computer document * General Information Discharge date: 01/25/24 Discharge diagnosis: see below Hospital course: see below Free Text DxA P Notes Free text DxA P notes: Septic shock requiring pressors Dilated biliary duct, concern for choledocholithiasis Admitted IV fluids empiric Cipro/Flagyl GI consulted surgery consulted wean levophed as tolerated diet advanced am labs 01/22 MRCP today cont cef/flagyl resume home meds GI, surgery following am labs. 01/23 Doing very well clinically MRCP with dilated CBD with abrupt narrowing near sphincter, no masses seen LFT benign GI considering ERCP 01/24 Doing well, at baseline GI and Surgery cleared for DC Will f/u outpt for possible ERCP DC to complete empiric abx course Med Rec Med Rec Discharge meds: Continue taking these medications: LISINOPRIL (ZESTRIL) 20 MG TAB 20 MILLIGRAM ORAL DAILY. OMEPRAZOLE ER (OMEPRAZOLE ER) 20 MG CAP.DR 20 MILLIGRAM ORAL DAILY. HYDROCHLOROTHIAZIDE (HCTZ) 12.5 MG CAP 12.5 MILLIGRAM ORAL DAILY. SERTRALINE (ZOLOFT) 100 MG TAB 100 MILLIGRAM ORAL DAILY. busPIRone (BUSPIRONE) 10 MG TAB 10 MILLIGRAM ORAL ONE TIME ONLY. SUMAtriptan (IMITREX) 50 MG TAB 50 MILLIGRAM ORAL EVERY 2 HR NEEDED. as needed for MIGRAINE Instructions: MAX 4 DOSES IN 24 HOURS. HYDROXYCHLOROQUINE SULFATE (PLAQUENIL) 200 MG TAB 200 MILLIGRAM ORAL DAILY. prednisoLONE SOD PHOSPHATE (ORAPRED ODT) 10 MG TAB.RAPDIS 10 MILLIGRAM ORAL TWICE DAILY. LORATADINE (CLARITIN) 10 MG TAB 10 MILLIGRAM ORAL DAILY. GABAPENTIN (NEURONTIN) 800 MG TAB 800 MILLIGRAM ORAL THREE TIMES A DAY. Qty = 60 This prescription has been renewed Start taking the following new medications: traMADol (ULTRAM) 50 MG TAB 50 MILLIGRAM ORAL EVERY 8 HR NEEDED. as needed for PAIN SCALE 4-6 Qty = 20 No Refills metroNIDAZOLE (FLAGYL) 500 MG TAB 500 MILLIGRAM ORAL EVERY 12 HOURS. Qty = 10 No Refills LIDOCAINE (LIDODERM 5%) 5 % PATCH 1 PATCH TRANSDERMAL DAILY. as needed for Pain Qty = 15 No Refills CIPROFLOXACIN (CIPROFLOXACIN) 500 MG TAB 500 MILLIGRAM ORAL TWICE DAILY. Qty = 10 No Refills The following medications have been changed: Old: tiZANidine (ZANAFLEX) 4 MG TAB 4 ORAL New: tiZANidine (ZANAFLEX) 4 MG TAB 4 MILLIGRAM ORAL THREE TIMES DAILY NEEDED. as needed for msk pain Qty = 60 Objective VS/I O Last Documented: Result Date Time Pulse Ox 97 01/24 1102 B/P 145/79 01/24 1102 B/P Mean 101.1 01/24 1102 Temp 98.2 01/24 1102 Pulse 66 01/24 1102 Resp 18 01/24 1102 O2 Delivery Room air 01/23 2340 O2 Flow Rate 2 01/21 193 Head/Eyes: atraumatic Cardiovascular: normal heart sounds Respiratory: aerating well, no distress Abdomen: tenderness, normal bowel sounds, soft, no distention Extremities: moves all Musculoskeletal: normal inspection Neuro/SOLE LEVELER: oriented X 3 Psychiatry: normal judgment/insight Results Findings/Data: Laboratory Tests: 01/24 0508 Chemistry Sodium (134.0 - 147.0 mmol/l) 140 Potassium (3.6 - 5.2 mmol/L) 4.0 Chloride (98.0 - 107.0 mmol/l) 108 H Carbon Dioxide (21.0 - 33.0 mmol/l) 23.2 Anion Gap (0 - 20) 12.8 BUN (7.0 - 18.0 mg/dl) 5 L Creatinine (0.60 - 1.30 mg/dL) 0.62 Estimated Creat Clear (>30 mL/min) 79 Glomerular Filtr Rate (mL/min) 96 Glucose (70.0 - 110.0 mg/dl) 102 Calcium (8.0 - 10.5 mg/dl) 7.9 L Total Bilirubin (0.0 - 1.0 mg/dl) 0.4 AST (15 - 37 Units/L) 22 ALT (12.0 - 78.0 Units/L) 22 Total Alk Phosphatase (50.0 - 136.0 Units/L) 48 L Total Protein (6.0 - 8.1 GM/DL) 5.7 L Albumin (3.2 - 4.7 gm/dL) 2.5 L Hematology WBC (4.5 - 11.0 K/mm3) 4.1 L RBC (3.80 - 5.20 M/mm3) 3.52 L Hgb (12.0 - 16.0 gm/dL) 10.1 L Hct (36.0 - 48.0 %) 31.5 L MCV (82.0 - 99.0 UM3) 89.5 MCH (25.5 - 32.5 UUG) 28.7 MCHC (29.0 - 35.5 gm/dL) 32.1 RDW (11.5 - 15.0 %) 13.9 Plt Count (150 - 400 K/mm3) 231 MPV (7.4 - 10.4 fl) 9.9 Neut % (Auto) (49.0 - 76.0 %) 63.5 Lymph % (Auto) (23.0 - 38.0 %) 24.6 Twiggs % (Auto) (1.0 - 10.0 %) 10.5 H Eos % (Auto) (1.0 - 5.0 %) 0.5 L Baso % (Auto) (0.0 - 1.0 %) 0.7 Neut # (Auto) (2.4 - 6.3 K/mm3) 2.6 Lymph # (Auto) (1.2 - 4.0 K/mm3) 1.0 L Twiggs # (Auto) (0.0 - 0.6 K/mm3) 0.4 Eos # (Auto) (0.0 - 0.7 K/MM3) 0.0 Baso # (Auto) (0.0 - 0.2 K/mm3) 0.0 Absolute Nucleated RBC (0.00 - 0.01 X10 3uL) 0.00 Immature Gran % (0.0 - 0.4 %) 0.2 Nucleated RBC % (0.0 - 0.1 %) 0.0 Immature Gran # (0.00 - 0.07 x10 3/uL) 0.01 Discharge Instructions PCP Discharge to: Home/Self Care Additional Discharge Routines: PCP Follow-Up, [employer] Follow-Up Diet: Resume Home Diet/Feeds Follow-up Appointments PCP follow-up: PCP: Undefined Provider PCP follow up timeframe: In 1-2 weeks Consulting provider 1: Provider 1: Ron Gibson MD Specialty: Gastroenterology Consult follow up timeframe: In 1-2 weeks Consulting provider 2: Provider 2: Krystle Barney MD Specialty: General Surgery Follow up timeframe: In 1-2 weeks at 1316 RPT #:[id number] END OF [id number] 12:51:00 [facility]) Gastroenterology Progress Note REPORT#:[id number] REPORT STATUS: Signed REPORT INITIALIZATION DATE:01/25/24 TIME: 1251 PATIENT: VIKTORIA CR UNIT #: [id number] ROOM/BED: [place] [address] : 53 AGE: 68 SEX: F ATTEND: Jovana Knott MD ADM AUTHOR: Niya Lang STILL OPERATOR REPT SERVICE DT/TIME: 01/25/24 1251 * ALL edits or amendments must be made on the electronic/computer document * Niya Lang 01/25/24 1251: Subjective Chief complaint: denies n/v/abd pain overall feels better wants to go home Review of Systems All systems rev neg: except as marked Objective General VS/I O: Last Documented: Result Date Time Pulse Ox 97 01/24 1102 B/P 145/79 01/24 1102 B/P Mean 101.1 01/24 1102 Temp 98.2 01/24 1102 Pulse 66 01/24 1102 Resp 18 01/24 1102 O2 Delivery Room air 01/23 2340 O2 Flow Rate 2 01/21 1932 PATIENT WEIGHT: Weight (lb): Weight (oz): Weight (kg): 81.818 Medications: Active Meds + DC'd Last 24 Hrs Ibuprofen (ADVIL) 200 MG Q8H PRN PO Tramadol HCl (ULTRAM) 50 MG Q8H PRN PRN PO Lidocaine (Lidocaine 4% Patch) 2 PATCH DAILY TOPICAL Lidocaine (Lidocaine 4% Patch) 1 PATCH DAILY TOPICAL (DC) Loratadine (CLARITIN) 10 MG DAILY PO Pantoprazole (PROTONIX) 40 MG BID 9A 5P PO Acetaminophen (TYLENOL 325MG) 650 MG Q6H PRN PRN PO Ciprofloxacin/Dextrose (CIPRO 400MG/D5W 200 ML) 200 ML Q12HR IV (DC) Metronidazole/Sodium Chloride (metroNIDAZOLE 500MG/NS 100ML) 100 ML Q12HR IV (DC) Sodium Chloride (SODIUM CHLORIDE 0.9%) 1,000 ML .Q24H IV Fentanyl Citrate (SUBLIMAZE) 25 MCG Q3H PRN PRN IV Gabapentin (NEURONTIN) 800 MG TID PO Tizanidine HCl (Zanaflex) 4 MG BEDTIME PO Physical Exam General appearance: alert, awake, oriented HEENT: anicteric, atraumatic, normocephalic Neck: full range of motion, non-tender, supple/no meningismus Cardiovascular: normal S1/S2, regular rate rhythm Respiratory: aerating well, symmetric expansion, no distress Abdomen: non-tender, normal bowel sounds, soft, no distention Extremities: moves all Skin: dry, intact Diagnosis, Assessment Plan Free Text A P: 1. Acute entertitis. The patient initially had diarrhea; however, her abdominal pain is out of proportion. There is a possibility of ischemic colitis. Currently, she is doing well when we check with 100 mL an hour. Continue to monitor her symptoms. She definitely would benefit from review of the CT from [facility] . She may need a repeat CT or even colonoscopy based on her progress in the next 6-12 hours. We will continue to monitor the patient closely. 01/23/24 - patient has recovered well, off pressor, US reviewed Dilated CBD - normal LFTs, hence non obstructive, MRCP pending. Her pain is not related to the imaging findings. She would eventually need colonoscopy - anemia, abd pain 01/23-denies n/v/abd pain, tolerated breakfast, Will plan for possible ERCP based on clinical progress 01/24- denies n/v/abd pain/diarrhea, tolerating reg diet. Can FU outpatient Ron Gibson 02/05/24 1416: Diagnosis, Assessment Plan Free Text A P: The patient's EMR, along with exam and interview with my STRATEGIC ACCOUNT EXECUTIVE, I agree with the plan as writtent above at 1253 at 1417 RPT #:[id number] END OF [id number]:17:[id number] [place] [id number] [place] [address] PATIENT NAME: VIKTORIA CR ADMIT DATE: 01/21/24 ACCOUNT NO: [id number] DISCHARGE DATE: 01/25/24 ROOM NO: E[facility] REPORT TYPE: PROGRESS NOTE DATE OF : [birth year] AGE: 68 SEX: F ADMITTING PHYSICIAN:Jovana Knott MD ATTENDING PHYSICIAN:Jovana Knott MD DATE: 01/25/2024 PROGRESS NOTE HISTORY OF PRESENT ILLNESS: The patient says she feels great. She is scheduled to see her primary care physician next week. She has tolerated her diet and she has had bowel movements. PHYSICAL EXAMINATION: VITAL SIGNS: Temperature of 98.8, pulse of 75, respirations 19, blood pressure 158/80. GENERAL: She is very talkative. HEENT: Within normal limits. ABDOMEN: Soft. EXTREMITIES: Without cyanosis, clubbing or edema. LABORATORY DATA: White count of 4.1, hemoglobin 10.1, hematocrit 31.5, platelet count 231,000. ASSESSMENT: 1. Resolved abdominal pain. 2. Resolved near syncope. 3. Resolved questionable choledocholithiasis. 4. Narrowed distal common bile duct without elevated liver function tests or hyperbilirubinemia. PLAN: The patient is anemic. She needs to be worked up in an outpatient setting. She needs a colonoscopy and she also needs close followup for her biliary tree. I explained all of this to the patient. She says she will follow up with her PCP immediately. Dictated By: Krystle Barney MD Date Dictated: 01/25/2024 12:17:24 Date Transcribed: 01/25/2024 12:37:21 /[facility] [place] Receipt ID: [id number] Authenticated by Krystle Barney MD On 01/31/2024 08:04:58 AM PATIENT NAME: VIKTORIA CR at 0804 PATIENT NAME: VIKTORIA CR 16:03:00 [facility] ([facility]) Hospitalist Progress Note REPORT#:[id number] REPORT STATUS: Signed REPORT INITIALIZATION DATE:01/24/24 TIME: 1602 PATIENT: VIKTORIA CR UNIT #: [id number] ROOM/BED: [place] [address] : 53 AGE: 68 SEX: F ATTEND: Jovana Knott MD ADM AUTHOR: Wood Gayle MD REPT SERVICE DT/TIME: 01/24/24 160 * ALL edits or amendments must be made on the electronic/computer document * Subjective Chief complaint: abd pain better doing well off levophed HPI: 68 yo female received as an ER transfer from OSH, where she presented with abdominal pain. Reports that she was walking to the store when she experienced acute onset severe RUQ pain that made her have to stop and sit down. She called her granddaughter for help, who called EMS. Pt's BP in the field was 70s/30s and she was taken to the ER, where she was found to have lekocytosis and hypotension requiring pressors. Her CT at the OSH shows a dilated CBD. She is transferred for GI/surgical evaluation. RUQ here shows dilated bile duct at 1.6cm; WBC has improved from 24-->16. At the time of my exam, pt feels much better than on admission. She no longer has abdominal pain. She is still on levophed, but it being titrated down. Review of Systems All systems rev neg: except as noted Objective General VS/I O: Vital Signs: Date Time Temp Pulse Resp B/P B/P Pulse O2 O2 Flow FiO2 Mean Ox Delivery Rate 01/23 1547 98.2 70 17 146/79 101.1 96 01/23 1047 98.6 66 18 144/80 101.1 98 01/23 0927 98 Room air 01/23 0705 99.0 61 18 110/68 82.1 96 01/23 0313 97.9 58 18 91/53 65.7 94 01/22 2341 65 18 97/60 72.7 92 01/22 2200 71 26 97 01/22 2035 72 22 155/70 101 01/22 2000 98.0 01/22 1856 97 Room air 01/22 1620 98.6 01/22 1620 73 25 116/59 82 97 24 hour I O ending at 0700: 01/23 0700 01/22 1900 Intake Total 200.00 1770.00 Output Total 650 Balance 200.00 1120.00 Intake, IV 200.00 820.00 Intake, Oral 950 Number 1 Bowel Movements Number Voids 3 2 Output, Urine 650 PATIENT WEIGHT: Weight (lb): Weight (oz): Weight (kg): 81.818 Medications: Active Meds + DC'd Last 24 Hrs Ibuprofen (ADVIL) 200 MG Q8H PRN PO Tramadol HCl (ULTRAM) 50 MG Q8H PRN PRN PO Lidocaine (Lidocaine 4% Patch) 2 PATCH DAILY TOPICAL Lidocaine (Lidocaine 4% Patch) 2 PATCH NOW ONE TOPICAL (CAN) Lidocaine (Lidocaine 4% Patch) 1 PATCH NOW ONE TOPICAL (DC) Lidocaine (Lidocaine 4% Patch) 1 PATCH DAILY TOPICAL (DC) Loratadine (CLARITIN) 10 MG DAILY PO Pantoprazole (PROTONIX) 40 MG BID 9A 5P PO Acetaminophen (TYLENOL 325MG) 650 MG Q6H PRN PRN PO Ciprofloxacin/Dextrose (CIPRO 400MG/D5W 200 ML) 200 ML Q12HR IV Metronidazole/Sodium Chloride (metroNIDAZOLE 500MG/NS 100ML) 100 ML Q12HR IV Mupirocin (BACTROBAN 2% 22 GM OINT) 1 APPLIC BID NASAL (DC) Sodium Chloride (SODIUM CHLORIDE 0.9%) 1,000 ML .Q24H IV Fentanyl Citrate (SUBLIMAZE) 25 MCG Q3H PRN PRN IV Gabapentin (NEURONTIN) 800 MG TID PO Tizanidine HCl (Zanaflex) 4 MG BEDTIME PO Physical Exam Head/Eyes: atraumatic Cardiovascular: normal heart sounds Respiratory: aerating well, no distress Abdomen: tenderness, normal bowel sounds, soft, no distention Extremities: moves all Musculoskeletal: normal inspection Neuro/SOLE LEVELER: oriented X 3 Psychiatry: normal judgment/insight Results Findings/Data: Laboratory Tests 01/23 226 Chemistry Sodium (134.0 - 147.0 mmol/l) 136 Potassium (3.6 - 5.2 mmol/L) 3.6 Chloride (98.0 - 107.0 mmol/l) 105 Carbon Dioxide (21.0 - 33.0 mmol/l) 24.7 Anion Gap (0 - 20) 9.9 BUN (7.0 - 18.0 mg/dl) 3 L Creatinine (0.60 - 1.30 mg/dL) 0.63 Estimated Creat Clear (>30 mL/min) 78 Glomerular Filtr Rate (mL/min) 95 Glucose (70.0 - 110.0 mg/dl) 116 H Calcium (8.0 - 10.5 mg/dl) 7.5 L Magnesium (1.8 - 2.4 mg/dl) 1.8 Total Bilirubin (0.0 - 1.0 mg/dl) 0.3 AST (15 - 37 Units/L) 25 ALT (12.0 - 78.0 Units/L) 22 Total Alk Phosphatase (50.0 - 136.0 Units/L) 41 L Total Protein (6.4 - 8.2 gm/dL) 5.3 L Albumin (3.2 - 4.7 gm/dl) 2.4 L Laboratory Tests 01/236 Hematology WBC (4.5 - 11.0 K/mm3) 6.4 RBC (3.80 - 5.20 M/mm3) 3.26 L Hgb (12.0 - 16.0 gm/dL) 9.5 L Hct (36.0 - 48.0 %) 29.6 L MCV (82.0 - 99.0 UM3) 90.8 MCH (25.5 - 32.5 UUG) 29.1 MCHC (29.0 - 35.5 gm/dL) 32.1 RDW (11.5 - 15.0 %) 13.9 Plt Count (150 - 400 K/mm3) 226 MPV (7.4 - 10.4 fl) 9.9 Neut % (Auto) (49.0 - 76.0 %) 75.5 Lymph % (Auto) (23.0 - 38.0 %) 14.3 L Twiggs % (Auto) (1.0 - 10.0 %) 9.4 Eos % (Auto) (1.0 - 5.0 %) 0.2 L Baso % (Auto) (0.0 - 1.0 %) 0.3 Neut # (Auto) (2.4 - 6.3 K/mm3) 4.8 Lymph # (Auto) (1.2 - 4.0 K/mm3) 0.9 L Twiggs # (Auto) (0.0 - 0.6 K/mm3) 0.6 Eos # (Auto) (0.0 - 0.7 K/MM3) 0.0 Baso # (Auto) (0.0 - 0.2 K/mm3) 0.0 Absolute Nucleated RBC (0.00 - 0.01 X10 3uL) 0.00 Immature Gran % (0.0 - 0.4 %) 0.3 Nucleated RBC % (0.0 - 0.1 %) 0.0 Immature Gran # (0.00 - 0.07 x10 3/uL) 0.02 Diagnosis, Assessment Plan Free Text DxA P Notes Free text DxA P notes: Septic shock requiring pressors Dilated biliary duct, concern for choledocholithiasis Admitted IV fluids empiric Cipro/Flagyl GI consulted surgery consulted wean levophed as tolerated diet advanced am labs 01/22 MRCP today cont cef/flagyl resume home meds GI, surgery following am labs. 01/23 Doing very well clinically MRCP with dilated CBD with abrupt narrowing near sphincter, no masses seen LFT benign GI considering ERCP at 1607 RPT #:[id number] END OF [id number]:[id number] [place] [address] PATIENT NAME: VIKTORIA CR ADMIT DATE: 01/21/24 ACCOUNT NO: [id number] DISCHARGE DATE: 01/25/24 [facility] DATE OF : 51 AGE: 68 SEX: F ADMITTING PHYSICIAN:Jovana Knott MD ATTENDING PHYSICIAN:Jovana Knott MD DATE: 01/24/2024 HISTORY OF PRESENT ILLNESS: The patient says she feels fine. She has no further abdominal pain. She has tolerated her full liquid diet. PHYSICAL EXAMINATION: VITAL SIGNS: Temperature of 98.6, pulse of 66, respirations 18, blood pressure 144/80. GENERAL: She is sitting up in bed. Again, she is very talkative. ABDOMEN: Soft, no tenderness. LABORATORY DATA: White count of 6.4, hemoglobin 9.5, hematocrit 29.6, platelet count 226,000. Comprehensive metabolic panel showed a BUN of 3, alkaline phosphatase of 41. Other liver function tests are normal. MRCP done yesterday showed the gallbladder is distended. No definite internal filling defects or common bile duct is prominent and in with more of a cutoff to . No obvious pancreatic head mass. No definite filling defect. ASSESSMENT: 1. Dilated common bile duct. 2. No evidence of gallstones. 3. Abdominal pain, resolved. RECOMMENDATIONS: 1. I think the patient should continue her workup in an outpatient setting. Currently, at this point, she is asymptomatic. 2. She does not have any elevated liver function tests. She is tolerating her diet and I think she has a large continuity of doctors in her home town with her support and I would recommend that she get back home. Dictated By: Krystle Barney MD Date Dictated: 01/24/2024 15:21:29 Date Transcribed: 01/24/2024 15:46:18 /[facility] Receipt ID: [id number] Authenticated by Krystle Barney MD On 01/31/2024 08:04:55 AM PATIENT NAME: VIKTORIA CR at 0804 PATIENT NAME: VIKTORIA CR 09:42:00 [facility] Pulmonology Progress Note REPORT#:[id number] REPORT STATUS: Signed REPORT INITIALIZATION DATE:01/24/24 TIME: 941 PATIENT: VIKTORIA CR UNIT #: [id number] ROOM/BED: [place] [address] : 53 AGE: 68 SEX: F ATTEND: Jovana Knott MD ADM AUTHOR: Cesario Sampson MD REPT SERVICE DT/TIME: 01/24/24 0942 * ALL edits or amendments must be made on the electronic/computer document * Subjective Chief complaint: abd pain Comments: doing better overall no abd pain now sob is better off oxygen ROS: no n/v/cp Objective General VS/I O: Last Documented: Result Date Time Pulse Ox 98 01/23 927 O2 Delivery Room air 01/23 927 B/P 110/68 01/23 705 B/P Mean 82.1 01/23 705 Temp 99.0 01/23 705 Pulse 61 01/23 705 Resp 18 01/23 705 O2 Flow Rate 2 01/212 24 hour I O ending at 0700: 01/22 1900 01/23 0700 Intake Total 1770.00 200.00 Output Total 650 Balance 1120.00 200.00 Intake, IV 820.00 200.00 Intake, Oral 950 Number 1 Bowel Movements Number Voids 2 3 Output, Urine 650 PATIENT WEIGHT: Weight (lb): Weight (oz): Weight (kg): 81.818 Medications: Active Meds + DC'd Last 24 Hrs Lidocaine (Lidocaine 4% Patch) 1 PATCH DAILY TOPICAL Loratadine (CLARITIN) 10 MG DAILY PO Pantoprazole (PROTONIX) 40 MG BID 9A 5P PO Acetaminophen (TYLENOL 325MG) 650 MG Q6H PRN PRN PO Ciprofloxacin/Dextrose (CIPRO 400MG/D5W 200 ML) 200 ML Q12HR IV Metronidazole/Sodium Chloride (metroNIDAZOLE 500MG/NS 100ML) 100 ML Q12HR IV Mupirocin (BACTROBAN 2% 22 GM OINT) 1 APPLIC BID NASAL (DC) Sodium Chloride (SODIUM CHLORIDE 0.9%) 1,000 ML .Q24H IV Fentanyl Citrate (SUBLIMAZE) 25 MCG Q3H PRN PRN IV Gabapentin (NEURONTIN) 800 MG TID PO Tizanidine HCl (Zanaflex) 4 MG BEDTIME PO Physical Exam General appearance: chronically ill appearing Head/eyes: atraumatic, normocephalic, PERRL, EOMI, clear cornea, normal conjunctiva/sclera, normal fundi, normal eyelids/periorb. ENT: ENT: normal dentition, normal ear left, normal ear right, normal nose, normal pharynx, normal sinus Neck: full range of motion, non-tender, normal thyroid, supple/no meningismus, no bruit/NL carotids, no JVD, no lymphadenopathy, no masses or swelling Cardiovascular: regular rate rhythm Respiratory/chest: decreased breath sounds Abdomen: soft, non-tender, no distention, no guarding, no mass/organomegaly, no rebound Extremities: moves all, normal capillary refill, no edema Musculoskeletal: full range of motion, normal inspection Neuro/SOLE LEVELER: alert, oriented X 3 Skin: dry, intact Lymphatics: axilla normal, inguinal normal, neck normal, no lymphadenopathy Psychiatry: normal affect, normal judgment/insight, normal mood, not homicidal, not suicidal, no hallucinations Results Findings/Data: Laboratory Tests 01/24/24225: [Embedded Image Not Available] Laboratory Tests 01/23 226 Chemistry Sodium (134.0 - 147.0 mmol/l) 136 Potassium (3.6 - 5.2 mmol/L) 3.6 Chloride (98.0 - 107.0 mmol/l) 105 Carbon Dioxide (21.0 - 33.0 mmol/l) 24.7 Anion Gap (0 - 20) 9.9 BUN (7.0 - 18.0 mg/dl) 3 L Creatinine (0.60 - 1.30 mg/dL) 0.63 Estimated Creat Clear (>30 mL/min) 78 Glomerular Filtr Rate (mL/min) 95 Glucose (70.0 - 110.0 mg/dl) 116 H Calcium (8.0 - 10.5 mg/dl) 7.5 L Magnesium (1.8 - 2.4 mg/dl) 1.8 Total Bilirubin (0.0 - 1.0 mg/dl) 0.3 AST (15 - 37 Units/L) 25 ALT (12.0 - 78.0 Units/L) 22 Total Alk Phosphatase (50.0 - 136.0 Units/L) 41 L Total Protein (6.4 - 8.2 gm/dL) 5.3 L Albumin (3.2 - 4.7 gm/dl) 2.4 L Laboratory Tests 01/23 226 Hematology WBC (4.5 - 11.0 K/mm3) 6.4 RBC (3.80 - 5.20 M/mm3) 3.26 L Hgb (12.0 - 16.0 gm/dL) 9.5 L Hct (36.0 - 48.0 %) 29.6 L MCV (82.0 - 99.0 UM3) 90.8 MCH (25.5 - 32.5 UUG) 29.1 MCHC (29.0 - 35.5 gm/dL) 32.1 RDW (11.5 - 15.0 %) 13.9 Plt Count (150 - 400 K/mm3) 226 MPV (7.4 - 10.4 fl) 9.9 Neut % (Auto) (49.0 - 76.0 %) 75.5 Lymph % (Auto) (23.0 - 38.0 %) 14.3 L Twiggs % (Auto) (1.0 - 10.0 %) 9.4 Eos % (Auto) (1.0 - 5.0 %) 0.2 L Baso % (Auto) (0.0 - 1.0 %) 0.3 Neut # (Auto) (2.4 - 6.3 K/mm3) 4.8 Lymph # (Auto) (1.2 - 4.0 K/mm3) 0.9 L Twiggs # (Auto) (0.0 - 0.6 K/mm3) 0.6 Eos # (Auto) (0.0 - 0.7 K/MM3) 0.0 Baso # (Auto) (0.0 - 0.2 K/mm3) 0.0 Absolute Nucleated RBC (0.00 - 0.01 X10 3uL) 0.00 Immature Gran % (0.0 - 0.4 %) 0.3 Nucleated RBC % (0.0 - 0.1 %) 0.0 Immature Gran # (0.00 - 0.07 x10 3/uL) 0.02 Diagnosis, Assessment Plan Free Text A P: 1. Sepsis with shock Suspected sepsis based on leukocytosis Empiric antibiotics Follow cultures Given abdominal pain initially, GI and general surgery consulted -> US noted Weaned Levophed Follow labs and cultures 2. Leukocytosis Significant Monitor closely improving 3. Hypokalemia ICU electrolyte protocol set initiated 4. Hypoxemia Oxygen weaned transferred from ICU doing better at 0946 RPT #:[id number] END OF [id number] 09:39:00 [facility] Gastroenterology Progress Note REPORT#:[id number] REPORT STATUS: Signed REPORT INITIALIZATION DATE:01/24/24 TIME: 0939 PATIENT: VIKTORIA CR UNIT #: [id number] ROOM/BED: [facility]-1 : 53 AGE: 68 SEX: F ATTEND: Jovana Knott MD ADM AUTHOR: Niya Lang REPT SERVICE DT/TIME: 01/24/24 09 * ALL edits or amendments must be made on the electronic/computer document * Niya Lang 01/24/24 0939: Subjective Chief complaint: resting Review of Systems All systems rev neg: except as marked Objective General VS/I O: Last Documented: Result Date Time Pulse Ox 98 01/23 927 O2 Delivery Room air 01/23 927 B/P 110/68 01/23 705 B/P Mean 82.1 01/23 705 Temp 99.0 01/23 07 Pulse 61 01/23 07 Resp 18 01/23 07 O2 Flow Rate 2 01/21 1932 24 hour I O ending at 0700: 01/23 0700 01/22 1900 Intake Total 200.00 1770.00 Output Total 650 Balance 200.00 1120.00 Intake, IV 200.00 820.00 Intake, Oral 950 Number 1 Bowel Movements Number Voids 3 2 Output, Urine 650 PATIENT WEIGHT: Weight (lb): Weight (oz): Weight (kg): 81.818 Medications: Active Meds + DC'd Last 24 Hrs Lidocaine (Lidocaine 4% Patch) 1 PATCH DAILY TOPICAL Loratadine (CLARITIN) 10 MG DAILY PO Pantoprazole (PROTONIX) 40 MG BID 9A 5P PO Acetaminophen (TYLENOL 325MG) 650 MG Q6H PRN PRN PO Ciprofloxacin/Dextrose (CIPRO 400MG/D5W 200 ML) 200 ML Q12HR IV Metronidazole/Sodium Chloride (metroNIDAZOLE 500MG/NS 100ML) 100 ML Q12HR IV Mupirocin (BACTROBAN 2% 22 GM OINT) 1 APPLIC BID NASAL (DC) Sodium Chloride (SODIUM CHLORIDE 0.9%) 1,000 ML .Q24H IV Fentanyl Citrate (SUBLIMAZE) 25 MCG Q3H PRN PRN IV Gabapentin (NEURONTIN) 800 MG TID PO Tizanidine HCl (Zanaflex) 4 MG BEDTIME PO Physical Exam General appearance: alert, awake, oriented HEENT: anicteric, atraumatic, normocephalic Neck: full range of motion, non-tender, supple/no meningismus Cardiovascular: normal S1/S2, regular rate rhythm Respiratory: aerating well, symmetric expansion, no distress Abdomen: non-tender, normal bowel sounds, soft, no distention Extremities: moves all Skin: dry, intact Results Findings/Data: Laboratory Tests 01/24/24225: [Embedded Image Not Available] Laboratory Tests 01/23 226 Chemistry Sodium (134.0 - 147.0 mmol/l) 136 Potassium (3.6 - 5.2 mmol/L) 3.6 Chloride (98.0 - 107.0 mmol/l) 105 Carbon Dioxide (21.0 - 33.0 mmol/l) 24.7 Anion Gap (0 - 20) 9.9 BUN (7.0 - 18.0 mg/dl) 3 L Creatinine (0.60 - 1.30 mg/dL) 0.63 Estimated Creat Clear (>30 mL/min) 78 Glomerular Filtr Rate (mL/min) 95 Glucose (70.0 - 110.0 mg/dl) 116 H Calcium (8.0 - 10.5 mg/dl) 7.5 L Magnesium (1.8 - 2.4 mg/dl) 1.8 Total Bilirubin (0.0 - 1.0 mg/dl) 0.3 AST (15 - 37 Units/L) 25 ALT (12.0 - 78.0 Units/L) 22 Total Alk Phosphatase (50.0 - 136.0 Units/L) 41 L Total Protein (6.4 - 8.2 gm/dL) 5.3 L Albumin (3.2 - 4.7 gm/dl) 2.4 L Laboratory Tests 01/23 226 Hematology WBC (4.5 - 11.0 K/mm3) 6.4 RBC (3.80 - 5.20 M/mm3) 3.26 L Hgb (12.0 - 16.0 gm/dL) 9.5 L Hct (36.0 - 48.0 %) 29.6 L MCV (82.0 - 99.0 UM3) 90.8 MCH (25.5 - 32.5 UUG) 29.1 MCHC (29.0 - 35.5 gm/dL) 32.1 RDW (11.5 - 15.0 %) 13.9 Plt Count (150 - 400 K/mm3) 226 MPV (7.4 - 10.4 fl) 9.9 Neut % (Auto) (49.0 - 76.0 %) 75.5 Lymph % (Auto) (23.0 - 38.0 %) 14.3 L Twiggs % (Auto) (1.0 - 10.0 %) 9.4 Eos % (Auto) (1.0 - 5.0 %) 0.2 L Baso % (Auto) (0.0 - 1.0 %) 0.3 Neut # (Auto) (2.4 - 6.3 K/mm3) 4.8 Lymph # (Auto) (1.2 - 4.0 K/mm3) 0.9 L Twiggs # (Auto) (0.0 - 0.6 K/mm3) 0.6 Eos # (Auto) (0.0 - 0.7 K/MM3) 0.0 Baso # (Auto) (0.0 - 0.2 K/mm3) 0.0 Absolute Nucleated RBC (0.00 - 0.01 X10 3uL) 0.00 Immature Gran % (0.0 - 0.4 %) 0.3 Nucleated RBC % (0.0 - 0.1 %) 0.0 Immature Gran # (0.00 - 0.07 x10 3/uL) 0.02 Radiology Data: Recent Impressions: MAGNETIC RESONANCE IMAGING - MRI MRCP 01/22 1400 Report Impression - Status: SIGNED Entered: 01/23/2024 1600 IMPRESSION: The common bile duct is dilated along with mild intrahepatic biliary dilatation. No definite filling defect in the CBD. There is a more abrupt change in caliber towards the ampulla near the sphincter. No definite pancreatic mass or pancreatic ductal dilatation is noted. An ERCP may be helpful for further assessment. Impression By: [email or web address] - David Dominguez M.D. Diagnosis, Assessment Plan Free Text A P: 1. Acute entertitis. The patient initially had diarrhea; however, her abdominal pain is out of proportion. There is a possibility of ischemic colitis. Currently, she is doing well when we check with 100 mL an hour. Continue to monitor her symptoms. She definitely would benefit from review of the CT from [facility] . She may need a repeat CT or even colonoscopy based on her progress in the next 6-12 hours. We will continue to monitor the patient closely. 01/23/24 - patient has recovered well, off pressor, US reviewed Dilated CBD - normal LFTs, hence non obstructive, MRCP pending. Her pain is not related to the imaging findings. She would eventually need colonoscopy - anemia, abd pain 01/23-denies n/v/abd pain, tolerated breakfast, Will plan for possible ERCP based on clinical progress Ron Gibson 02/05/24 1413: Diagnosis, Assessment Plan Free Text A P: The patient's EMR, along with exam and interview with my STRATEGIC ACCOUNT EXECUTIVE, I agree with the plan as writtent above at 1038 at 1415 RPT #:[id number] END OF [id number] 15:17:00 [facility] Pulmonology Progress Note REPORT#:[id number] REPORT STATUS: Signed REPORT INITIALIZATION DATE:01/23/24 TIME: 1516 PATIENT: VIKTORIA CR UNIT #: [id number] ROOM/BED: [place] [address] : 53 AGE: 68 SEX: F ATTEND: Jovana Knott MD ADM AUTHOR: Cesario Sampson MD REPT SERVICE DT/TIME: 01/23/241516 * ALL edits or amendments must be made on the electronic/computer document * Subjective Chief complaint: abd pain Comments: blood pressure improved significant no sob abd pain improved ROS: no n/v/cp Objective General VS/I O: Last Documented: Result Date Time Temp 98.2 01/22 1156 Pulse Ox 97 01/22 1100 B/P 163/73 01/22 1100 B/P Mean 105 01/22 1100 Pulse 75 01/22 1100 Resp 32 01/22 1100 O2 Delivery Room air 01/22 0802 O2 Flow Rate 2 01/21 1932 24 hour I O ending at 0700: 01/21 1900 01/22 0700 Intake Total 2738.30 2340.00 Output Total 1320 1400 Balance 1418.30 940.00 Intake, IV 1338.30 1500.00 Intake, Oral 1400 840 Number 1 Bowel Movements Number 1 Incontinent Voids Number Voids 1 Output, Stool 120 Output, Urine 1200 1400 PATIENT WEIGHT: Weight (lb): Weight (oz): Weight (kg): 81.818 Physical Exam General appearance: chronically ill appearing Head/eyes: atraumatic, normocephalic, PERRL, EOMI, clear cornea, normal conjunctiva/sclera, normal fundi, normal eyelids/periorb. ENT: ENT: normal dentition, normal ear left, normal ear right, normal nose, normal pharynx, normal sinus Neck: full range of motion, non-tender, normal thyroid, supple/no meningismus, no bruit/NL carotids, no JVD, no lymphadenopathy, no masses or swelling Cardiovascular: regular rate rhythm Respiratory/chest: decreased breath sounds Abdomen: soft, non-tender, no distention, no guarding, no mass/organomegaly, no rebound Extremities: moves all, normal capillary refill, no edema Musculoskeletal: full range of motion, normal inspection Neuro/SOLE LEVELER: alert, oriented X 3 Skin: dry, intact Lymphatics: axilla normal, inguinal normal, neck normal, no lymphadenopathy Psychiatry: normal affect, normal judgment/insight, normal mood, not homicidal, not suicidal, no hallucinations Results Findings/Data: Laboratory Tests 01/23/24627: [Embedded Image Not Available] Laboratory Tests 01/23 628 Chemistry Sodium (134.0 - 147.0 mmol/l) 137 Potassium (3.6 - 5.2 mmol/L) 3.6 Chloride (98.0 - 107.0 mmol/l) 105 Carbon Dioxide (21.0 - 33.0 mmol/l) 24.1 Anion Gap (0 - 20) 11.5 BUN (7.0 - 18.0 mg/dl) 6 L Creatinine (0.60 - 1.30 mg/dL) 0.71 Estimated Creat Clear (>30 mL/min) 69 Glomerular Filtr Rate (mL/min) 91 Glucose (70.0 - 110.0 mg/dl) 89 Calcium (8.0 - 10.5 mg/dl) 7.0 L Total Bilirubin (0.0 - 1.0 mg/dl) 0.4 AST (15 - 37 Units/L) 29 ALT (12.0 - 78.0 Units/L) 24 Total Alk Phosphatase (50.0 - 136.0 Units/L) 41 L Total Protein (6.0 - 8.1 GM/DL) 5.3 L Albumin (3.2 - 4.7 gm/dL) 2.4 L Laboratory Tests 01/22 0628 Hematology WBC (4.5 - 11.0 K/mm3) 8.6 RBC (3.80 - 5.20 M/mm3) 3.17 L Hgb (12.0 - 16.0 gm/dL) 9.1 L Hct (36.0 - 48.0 %) 28.8 L MCV (82.0 - 99.0 UM3) 90.9 MCH (25.5 - 32.5 UUG) 28.7 MCHC (29.0 - 35.5 gm/dL) 31.6 RDW (11.5 - 15.0 %) 14.1 Plt Count (150 - 400 K/mm3) 197 MPV (7.4 - 10.4 fl) 9.1 Neut % (Auto) (49.0 - 76.0 %) 76.2 H Lymph % (Auto) (23.0 - 38.0 %) 13.2 L Twiggs % (Auto) (1.0 - 10.0 %) 9.8 Eos % (Auto) (1.0 - 5.0 %) 0.2 L Baso % (Auto) (0.0 - 1.0 %) 0.3 Neut # (Auto) (2.4 - 6.3 K/mm3) 6.6 H Lymph # (Auto) (1.2 - 4.0 K/mm3) 1.1 L Twiggs # (Auto) (0.0 - 0.6 K/mm3) 0.9 H Eos # (Auto) (0.0 - 0.7 K/MM3) 0.0 Baso # (Auto) (0.0 - 0.2 K/mm3) 0.0 Absolute Nucleated RBC (0.00 - 0.01 X10 3uL) 0.00 Immature Gran % (0.0 - 0.4 %) 0.3 Nucleated RBC % (0.0 - 0.1 %) 0.0 Immature Gran # (0.00 - 0.07 x10 3/uL) 0.03 Results: labs reviewed, vital signs reviewed, CT results reviewed Diagnosis, Assessment Plan Free Text A P: 1. Sepsis with shock Suspected sepsis based on leukocytosis Empiric antibiotics Follow cultures Given abdominal pain initially, GI and general surgery consulted -> US noted Weaned Levophed Follow labs and cultures 2. Leukocytosis Significant Monitor closely improving 3. Hypokalemia ICU electrolyte protocol set initiated 4. Hypoxemia Oxygen weaned at 1521 RPT #:[id number] END OF [id number] 15:06:[id number] [facility] [address] [place], [place] [address] PATIENT NAME: VIKTORIA CR ADMIT DATE: 01/21/24 ACCOUNT NO: [id number] DISCHARGE DATE: 01/25/24 ROOM NO: E.438 REPORT TYPE: PROGRESS NOTE DATE OF : 51 AGE: 68 SEX: F ADMITTING PHYSICIAN:Jovana Knott MD ATTENDING PHYSICIAN:Jovana Knott MD DATE: 01/23/2024 SUBJECTIVE: The patient is currently not in her room. She has gone down for her MRI of the biliary system. According to the nurse, the patient has done well today. PLAN: 1. Await MRI results. 2. The nurse described, the patient can be transferred to the floor. Dictated By: Krystle Barney MD Date Dictated: 01/23/2024 15:06:28 Date Transcribed: 01/23/2024 15:45:46 /[facility] Receipt ID: [id number] Authenticated by Krystle Barney MD On 01/31/2024 08:04:52 AM at 0804 PATIENT NAME: VIKTORIA CR 14:17:00 [facility] ([facility]) Clinical Note REPORT#:[id number] REPORT STATUS: Signed REPORT INITIALIZATION DATE:01/23/24 TIME: 1417 PATIENT: VIKTORIA CR UNIT #: [id number] ROOM/BED: E.IC11-1 : 51 AGE: 68 SEX: F ATTEND: Jovana Knott MD ADM AUTHOR: Ron Gibson MD REPT SERVICE DT/TIME: 01/23/24 0497 * ALL edits or amendments must be made on the electronic/computer document * Clinical Note Note: Subjective resting REVIEW OF SYSTEMS: GENERAL: No weight gain and/or loss. Denies fever and chills. EYES: Negative for vision changes and eye irritation. EARS, NOSE, THROAT: No oral lesions. No sore throat. No ear pain or sinus congestion. CARDIAC: Denies chest pain, diaphoresis, orthopnea, and palpitations. PULMONARY: Denies shortness of breath, cough, and hemoptysis. GASTROINTESTINAL: As per HPI. GENITOURINARY: No dysuria. No discharge. No hematuria. MUSCULOSKELETAL: No muscle pain. No joint abnormalities. DERMATOLOGIC: No skin rashes. No skin ulceration. PSYCHIATRIC: No depression. No anxiety. NEUROLOGIC: No headache. No dizziness. No numbness. No tingling. ENDOCRINE: Negative for polyuria, polydipsia, and polyphagia. ALLERGIES: No allergic rhinitis. No pruritus. PHYSICAL EXAMINATION: VITAL SIGNS: Stable. GENERAL: The patient is awake, alert, and oriented x3, and is in no apparent distress. EYES: No pallor and icterus noted. Pupils equal, round, and reactive to light and accommodation. Extraocular muscles intact. EARS, NOSE, THROAT: No oral lesions. No oropharyngeal erythema. Nares patent. NECK: No lymphadenopathy. Supple. HEART: Regular rate and rhythm. S1, S2 heard. LUNGS: Clear to auscultation bilaterally. No wheezes or crackles. ABDOMEN: Mild abdominal tenderness. No guarding, no rigidity. GENITOURINARY AND RECTAL: Deferred. EXTREMITIES: The bilateral lower extremities are without clubbing, cyanosis, or edema. The bilateral upper extremities are unremarkable. SKIN: No rashes. No skin ulcerations. NEUROLOGIC: Sensory and motor grossly intact. MUSCULOSKELETAL: No muscle fasciculations and atrophy noted. LABS AND IMAGING: Reviewed. IMPRESSION AND PLAN: Acute entertitis. The patient initially had diarrhea; however, her abdominal pain is out of proportion. There is a possibility of ischemic colitis. Currently, she is doing well when we check with 100 mL an hour. Continue to monitor her symptoms. She definitely would benefit from review of the CT from [facility] . She may need a repeat CT or even colonoscopy based on her progress in the next 6-12 hours. We will continue to monitor the patient closely. 01/23/24 - patient has recovered well, off pressor, US reviewed Dilated CBD - normal LFTs, hence non obstructive, MRCP pending. Her pain is not related to the imaging findings. She would eventually need colonoscopy - anemia, abd pain at 1420 RPT #:[id number] END OF [id number] 09:45:00 [facility] ([facility] Hospitalist Progress Note REPORT#:[id number] REPORT STATUS: Signed REPORT INITIALIZATION DATE:01/23/24 TIME: 944 PATIENT: VIKTORIA CR UNIT #: [id number] ROOM/BED: [place] [address] : 53 AGE: 68 SEX: F ATTEND: Jovana Knott MD ADM AUTHOR: Jovana Knott MD REPT SERVICE DT/TIME: 01/23/24 0945 * ALL edits or amendments must be made on the electronic/computer document * Subjective Chief complaint: abd pain better doing well off levophed HPI: 68 yo female received as an ER transfer from [facility], where she presented with abdominal pain. Reports that she was walking to the store when she experienced acute onset severe RUQ pain that made her have to stop and sit down. She called her granddaughter for help, who called EMS. Pt's BP in the field was 70s/30s and she was taken to the ER, where she was found to have lekocytosis and hypotension requiring pressors. Her CT at the OSH shows a dilated CBD. She is transferred for GI/surgical evaluation. RUQ here shows dilated bile duct at 1.6cm; WBC has improved from 24-->16. At the time of my exam, pt feels much better than on admission. She no longer has abdominal pain. She is still on levophed, but it being titrated down. Review of Systems All systems rev neg: except as noted Objective General VS/I O: Vital Signs: Date Time Temp Pulse Resp B/P B/P Pulse O2 O2 Flow FiO2 Mean Ox Delivery Rate 01/22 0802 Room air 01/22 0801 37.0 01/22 0746 92 Room air 01/22 0600 59 22 121/58 83 99 01/22 0500 66 18 108/52 75 98 01/22 0400 36.8 01/22 0400 56 19 99/51 70 98 01/22 0308 58 21 97/50 70 97 01/22 0200 56 20 94/45 65 100 01/22 0100 59 19 97/50 69 100 01/22 0001 59 19 91/50 67 100 01/22 0000 37.1 01/22 0000 60 20 89/50 66 99 01/21 2317 66 28 103/51 71 96 01/21 2200 79 25 131/64 90 100 01/21 2100 75 23 146/77 105 100 01/21 2001 79 27 148/59 85 100 01/21 1943 36.9 01/21 1932 Nasal 2 cannula 01/21 1901 117 22 143/73 102 97 01/21 1900 71 24 164/72 104 99 01/21 1824 100 Room air 01/21 1800 97 134/74 96 99 01/21 1700 91 24 134/60 90 98 01/21 1600 36.8 01/21 1600 72 25 126/62 89 99 01/21 1500 76 20 110/63 81 100 01/21 1400 82 34 136/63 90 100 01/21 1303 102 31 149/74 99 92 01/21 1200 36.7 01/21 1200 72 21 134/63 91 99 01/21 1130 76 24 138/66 95 98 01/21 1115 79 31 134/69 93 99 01/21 1100 78 22 126/66 90 100 01/21 1045 78 23 136/70 96 100 01/21 1030 78 21 130/69 95 100 01/21 1015 76 23 140/71 98 99 01/21 1000 77 01/21 1000 31 139/63 91 100 24 hour I O ending at 0700: 01/22 0700 01/21 1900 Intake Total 2340.00 2738.30 Output Total 1400 1320 Balance 940.00 1418.30 Intake, IV 1500.00 1338.30 Intake, Oral 840 1400 Number 1 Bowel Movements Number 1 Incontinent Voids Number Voids 1 Output, Stool 120 Output, Urine 1400 1200 PATIENT WEIGHT: Weight (lb): Weight (oz): Weight (kg): 81.818 Medications: Active Meds + DC'd Last 24 Hrs Pantoprazole (PROTONIX) 40 MG BID 9A 5P PO Acetaminophen (TYLENOL 325MG) 650 MG Q6H PRN PRN PO Pantoprazole (PROTONIX 40MG INJ) 40 MG NOW ONE IV (DC) Sodium Chloride (SODIUM CHLORIDE 0.9% 10ML) 10 ML ASDIR PRN IV (DC) Ciprofloxacin/Dextrose (CIPRO 400MG/D5W 200 ML) 200 ML Q12HR IV Metronidazole/Sodium Chloride (metroNIDAZOLE 500MG/NS 100ML) 100 ML Q12HR IV Mupirocin (BACTROBAN 2% 22 GM OINT) 1 APPLIC BID NASAL Sodium Chloride (SODIUM CHLORIDE 0.9%) 1,000 ML .Q24H IV Fentanyl Citrate (SUBLIMAZE) 25 MCG Q3H PRN PRN IV Gabapentin (NEURONTIN) 800 MG TID PO Tizanidine HCl (Zanaflex) 4 MG BEDTIME PO Norepinephrine Bitartrate (NOREPINEPHRINE 8 MG/NS 250 ML) 250 ML X1ED STA IV (DC) Dietitian nutrition assessment The data set between the solid lines has been imported from the dietitian's assessment. BMI Calculated: 29.1 Nutrition related diagnosis: Nutrition diagnosis details: Nutrition problem: Nutrition etiology: Nutrition signs and symptoms: Nutrition prescription: Dietitian name: Assessment completed: Physical Exam General appearance: awake Head/Eyes: atraumatic Cardiovascular: normal heart sounds Respiratory: aerating well, no distress Abdomen: tenderness, normal bowel sounds, soft, no distention Extremities: moves all Musculoskeletal: normal inspection Neuro/SOLE LEVELER: oriented X 3 Psychiatry: normal judgment/insight Results Findings/Data: Laboratory Tests 01/23 628 Chemistry Sodium (134.0 - 147.0 mmol/l) 137 Potassium (3.6 - 5.2 mmol/L) 3.6 Chloride (98.0 - 107.0 mmol/l) 105 Carbon Dioxide (21.0 - 33.0 mmol/l) 24.1 Anion Gap (0 - 20) 11.5 BUN (7.0 - 18.0 mg/dl) 6 L Creatinine (0.60 - 1.30 mg/dL) 0.71 Estimated Creat Clear (>30 mL/min) 69 Glomerular Filtr Rate (mL/min) 91 Glucose (70.0 - 110.0 mg/dl) 89 Calcium (8.0 - 10.5 mg/dl) 7.0 L Total Bilirubin (0.0 - 1.0 mg/dl) 0.4 AST (15 - 37 Units/L) 29 ALT (12.0 - 78.0 Units/L) 24 Total Alk Phosphatase (50.0 - 136.0 Units/L) 41 L Total Protein (6.0 - 8.1 GM/DL) 5.3 L Albumin (3.2 - 4.7 gm/dL) 2.4 L Laboratory Tests 01/23 628 Hematology WBC (4.5 - 11.0 K/mm3) 8.6 RBC (3.80 - 5.20 M/mm3) 3.17 L Hgb (12.0 - 16.0 gm/dL) 9.1 L Hct (36.0 - 48.0 %) 28.8 L MCV (82.0 - 99.0 UM3) 90.9 MCH (25.5 - 32.5 UUG) 28.7 MCHC (29.0 - 35.5 gm/dL) 31.6 RDW (11.5 - 15.0 %) 14.1 Plt Count (150 - 400 K/mm3) 197 MPV (7.4 - 10.4 fl) 9.1 Neut % (Auto) (49.0 - 76.0 %) 76.2 H Lymph % (Auto) (23.0 - 38.0 %) 13.2 L Twiggs % (Auto) (1.0 - 10.0 %) 9.8 Eos % (Auto) (1.0 - 5.0 %) 0.2 L Baso % (Auto) (0.0 - 1.0 %) 0.3 Neut # (Auto) (2.4 - 6.3 K/mm3) 6.6 H Lymph # (Auto) (1.2 - 4.0 K/mm3) 1.1 L Twiggs # (Auto) (0.0 - 0.6 K/mm3) 0.9 H Eos # (Auto) (0.0 - 0.7 K/MM3) 0.0 Baso # (Auto) (0.0 - 0.2 K/mm3) 0.0 Absolute Nucleated RBC (0.00 - 0.01 X10 3uL) 0.00 Immature Gran % (0.0 - 0.4 %) 0.3 Nucleated RBC % (0.0 - 0.1 %) 0.0 Immature Gran # (0.00 - 0.07 x10 3/uL) 0.03 Laboratory Tests 01/21 1143 Urines Urine Color YELLOW Urine Appearance CLEAR Urine pH (5.0 - 9.0) 5.0 Ur Specific Humble (1.000 - 1.030) 1.015 Urine Protein (NEGATIVE mg/dl) NEGATIVE Urine Glucose (UA) (NORMAL mg/dl) NORMAL Urine Ketones (NEGATIVE mg/dl) NEGATIVE Urine Blood (NEGATIVE Wesley/micL) 25 Wesley/micL H Urine Nitrite (NEGATIVE) NEGATIVE Urine Bilirubin (NEGATIVE mg/dL) NEGATIVE Urine Urobilinogen (NORMAL mg/dl) NORMAL Ur Leukocyte Esterase (NEGATIVE Gonsalo/micL) NEGATIVE Urine RBC (0 - 3 RBC/HPF) 3-5 Urine WBC (0 - 3 WBC/HPF) 4-9 H Ur Epithelial Cells (0 - 3 EPI/HPF) 2-5 H Urine Bacteria (NONE) FEW Radiology data: Recent Impressions: ULTRASOUND - US ABDOMEN LTD 01/21 1516 Report Impression - Status: SIGNED Entered: 01/22/2024 6882 IMPRESSION: THERE IS DILATATION OF THE COMMON BILE MEASURING UP TO 1.2 CM. NO GALLSTONES ARE SEEN. GALLBLADDER WALL IS SLIGHTLY PROMINENT MEASURING 4.0 MM Impression By: ClaribelMMDevika - Joao Peña Md Diagnosis, Assessment Plan Free Text DxA P Notes Free text DxA P notes: sepstic shock requiring pressors dilated biliary duct, concern for choledocholithiasis Admitted IV fluids empiric Cipro/Flagyl GI consulted surgery consulted wean levophed as tolerated diet advanced am labs 01/22 MRCP today cont cef/flagyl resume home meds GI, surgery following am labs. at 0946 [facility] #:[id number] END OF [id number] 11:30:[id number] [place] [address] PATIENT NAME: VIKTORIA CR ADMIT DATE: 01/21/24 ACCOUNT NO: [id number] DISCHARGE DATE: 01/25/24 ROOM NO: E.438 REPORT TYPE: CONSULTATION REPORT DATE OF : [birth year] AGE: 68 SEX: F ADMITTING PHYSICIAN:Jovana Knott MD ATTENDING PHYSICIAN:Jovana Knott MD CONSULTATION DATE: ICU CONSULTATION INDICATION FOR CONSULTATION: Abnormal CT scan of the abdomen and pelvis and abdominal pain. HISTORY OF PRESENT ILLNESS: This is a 68-year-old woman who presented to our emergency room after transfer from [facility]. The patient was seen in the hospital after she was brought in from the road side after leaving the store. I have reviewed all of the medical records from [place], i.e., [facility]. The patient states that she lives only a couple of blocks from the store and she had gone to the store with her walker and coming back from the store she developed severe abdominal pain. She felt lightheaded and felt that she was near syncope. She sat on her walker, called her granddaughter, and the granddaughter tried to push her home, but the patient continued to feel poorly with near syncope. Therefore, the EMS was called and the patient was taken to [facility] emergency room. In that emergency room, the patient had full workup consisting of a CT scan of the abdomen and pelvis and a chest x-ray. The CT scan showed a diffuse enterocolitis, a small amount of free fluid in the pelvic cul-de-sac, mild intrahepatic and extrahepatic biliary dilatation. There was a large retrocardiac hiatal hernia and cardiomegaly and coronary artery disease. The patient's lab work in that emergency room showed a sodium of 135, potassium of 2.6, CO2 of 17, glucose of 124, normal liver function tests, and total protein of 5.4. Her lipase was 115. The patient was found to be hypotensive and was fluid resuscitated and the potassium was also replaced. The patient was transferred to our facility. PAST MEDICAL HISTORY: 1. Essential hypertension. 2. Rheumatoid arthritis. 3. Severe osteoarthritis of the right knee. The patient will ultimately have a knee replacement. 4. Bilateral cataracts. The patient is scheduled to have left cataract surgery. 5. Iron deficiency anemia. The patient has never had a colonoscopy. 6. Chronic low back pain. ALLERGIES: PENICILLIN AND SULFA. MEDICATIONS: Buspirone, gabapentin, hydrochlorothiazide, hydroxychloroquine, PATIENT NAME: VIKTORIA CR lisinopril, omeprazole. REVIEW OF SYSTEMS: GASTROINTESTINAL: The patient has never had a disorder of this type. She does not drink alcohol. She has never had pancreatitis. Gallbladder disease has run in the family, but she has never had any pathology. EXTREMITIES: The patient was transferred with right femoral central line in place that has since been removed in our facility with a PICC line placed. PHYSICAL EXAMINATION: VITAL SIGNS: Temperature of 99, pulse of 78, respirations 21, blood pressure 130/69. The patient is still on a very low dose of Levophed, which she probably does not need. GENERAL: She is an excellent historian. She is wide awake, alert, and quite loquacious. SKIN: The patient has a slightly sallow skin appearance, but skin turgor looks good and she does have skin aged by the sun. HEENT: Pupils were equally round and reactive to light. Extraocular muscles were intact. She has nonicteric sclerae. Oropharynx was clear. NECK: Supple, without adenopathy. LUNGS: Clear to auscultation. HEART: Regular rate and rhythm without murmurs or gallops. ABDOMEN: Distended, tympanitic to percussion with mild generalized tenderness and without guarding. No organomegaly or hernias palpated. EXTREMITIES: She has severe deformity and findings of Raynaud's phenomenon in her right fingers. She has a black glove on for this disorder. Her right hand appears to be completely normal. Her lower extremities are without cyanosis, clubbing, or edema. LABORATORY DATA: In our emergency room, labs showed white count of 24.9, hemoglobin 12.7, hematocrit 39.5, platelet count 381,000 with 89 neutrophils, 2% lymphs. Sodium was 137, potassium 3.8, anion gap was 17.6, CO2 was 19.2, glucose was 149. Albumin was 3.0. Liver function tests were completely normal. ASSESSMENT: 1. Severe abdominal pain. 2. Extremis with hypotension. 3. Near syncope. 4. Abnormal CT scan of the abdomen suggestive of intrahepatic and extrahepatic biliary dilatation. 5. History of rheumatoid arthritis. 6. Essential hypertension. 7. Iron deficiency anemia with no history of colonoscopy. PLAN: 1. Ultrasonogram of the liver and gallbladder. 2. Agree with full liquid diet. 3. Discontinue Bernabe. 4. Discontinue Levophed. 5. Further x-ray studies depending upon results of the ultrasonogram. Dictated By: Krystle Barney MD Date Dictated: 01/22/2024 11:30:23 Date Transcribed: 01/22/2024 14:34:44 PATIENT NAME: TAYOVIKTORIA /[facility] Receipt ID: [id number] Authenticated by Krystle Barney MD On 01/31/2024 08:04:48 AM at 0804 PATIENT NAME: TAYOVIKTORIA 10:39:00 [id number] [place] [address] PATIENT NAME: REA CRGY ADMIT DATE: 01/21/24 ACCOUNT NO: [id number] DISCHARGE DATE: 01/25/24 ROOM NO: E.[facility] REPORT TYPE: CONSULTATION REPORT DATE OF : [birth year] AGE: 68 SEX: F ADMITTING PHYSICIAN:Jovana Knott MD ATTENDING PHYSICIAN:Jovana Knott MD CONSULTATION DATE: 01/22/2024 GI CONSULTATION NOTE REASON FOR CONSULTATION: 1. The patient is ER and transferred and accepted from the [place]. 2. abdominal pain Levophed. HISTORY OF PRESENT ILLNESS: A 68-year-old female who evidently reports that she had some diarrhea over the last day. No blood in the reports that she had a syncopal episode within . She was then taken to [place] ER where she was found to have acidosis, leukocytosis and was started on Levophed. Since admission her blood pressure has started to improve. Her creatinine is normal. Her acidosis is improved from 19 to 22 and WBC 17,000 from 24, 000. PAST MEDICAL HISTORY: Hypertension, diabetes, obesity. [TIME: 01:34] ____. ALLERGIES: PENICILLIN, SULFA, DOXYCYCLINE. REVIEW OF SYSTEMS: GENERAL: No weight gain and/or loss. Denies fever and chills. EYES: Negative for vision changes and eye irritation. EARS, NOSE, THROAT: No oral lesions. No sore throat. No ear pain or sinus congestion. CARDIAC: Denies chest pain, diaphoresis, orthopnea, and palpitations. PULMONARY: Denies shortness of breath, cough, and hemoptysis. GASTROINTESTINAL: As per HPI. GENITOURINARY: No dysuria. No discharge. No hematuria. MUSCULOSKELETAL: No muscle pain. No joint abnormalities. DERMATOLOGIC: No skin rashes. No skin ulceration. PSYCHIATRIC: No depression. No anxiety. NEUROLOGIC: No headache. No dizziness. No numbness. No tingling. ENDOCRINE: Negative for polyuria, polydipsia, and polyphagia. ALLERGIES: No allergic rhinitis. No pruritus. PHYSICAL EXAMINATION: VITAL SIGNS: Stable. GENERAL: The patient is awake, alert, and oriented x3, and is in no apparent distress. EYES: No pallor and icterus noted. Pupils equal, round, and reactive to light and accommodation. Extraocular muscles intact. EARS, NOSE, THROAT: No oral lesions. No oropharyngeal erythema. Nares patent. NECK: No lymphadenopathy. Supple. PATIENT NAME: VIKTORIA CR HEART: Regular rate and rhythm. S1, S2 heard. LUNGS: Clear to auscultation bilaterally. No wheezes or crackles. ABDOMEN: Mild abdominal tenderness. No guarding, no rigidity. GENITOURINARY AND RECTAL: Deferred. EXTREMITIES: The bilateral lower extremities are without clubbing, cyanosis, or edema. The bilateral upper extremities are unremarkable. SKIN: No rashes. No skin ulcerations. NEUROLOGIC: Sensory and motor grossly intact. MUSCULOSKELETAL: No muscle fasciculations and atrophy noted. LABS AND IMAGING: Reviewed. IMPRESSION AND PLAN: Acute . The patient initially had diarrhea; however, her abdominal pain is out of proportion. There is a possibility of ischemic colitis. Currently, she is doing well when we check with 100 mL an hour. Continue to monitor her symptoms. She definitely would benefit from review of the CT from [place] . She may need a repeat CT or even colonoscopy based on her progress in the next 6-12 hours. We will continue to monitor the patient closely. Dictated By: Ron Gibson MD Date Dictated: 01/22/2024 10:39:36 Date Transcribed: 01/22/2024 14:30:58 AM/[facility] Receipt ID: [id number] Authenticated by Ron Gibson MD On 01/31/2024 10:44:04 AM at 1044 PATIENT NAME: VIKTORIA CR 07:37:00 [facility] Pulmonary Consultation Note REPORT#:[id number] REPORT STATUS: Signed REPORT INITIALIZATION DATE:01/22/24 TIME: 07 PATIENT: VIKTORIA CR UNIT #: [id number] ROOM/BED: [facility] : 53 AGE: 68 SEX: F ATTEND: Jovana Knott MD ADM AUTHOR: Cesario Sampson MD REPT SERVICE DT/TIME: 01/22/24 0737 * ALL edits or amendments must be made on the electronic/computer document * History of Present Illness HPI Requesting clinician: NITZA Reason for consult: SOB Chief complaint: abd pain HPI: This patient is a 68-year-old with past medical history of hypertension, diabetes, obesity presenting with syncope. The patient lives in [facility]. She was walking and suddenly had a syncopal like episode. She felt very nauseous and cramping being at that time. She had some abdominal pain. She felt that she was probably dehydrated. She was brought to the emergency room she was found to have significant hypotension. She was transferred to this ICU for further care. In the ER, she had a full workup including labs and x-ray. Labs were significant for leukocytosis and mild acidosis. Lactic acid was negative. The patient was initially found to have significant hypotension with a systolic in the 60s. She was placed on Levophed transfer to ICU I was consulted for further management. On interview today, patient states she is feeling better. Blood pressure is improving but does sky on Levophed. Past medical history Hypertension Diabetes Obesity Past surgical history Foot surgery x 2 Social history No tobacco or alcohol Family history Reviewed and noncontributory REVIEW OF SYSTEMS: GENERAL: Denies fevers. EYES: Denies acute visual changes. ENT: Denies odynophagia. CV: Denies chest pain. RESPIRATORY: As above. GI: As above : Denies dysuria. LYMPH: Denies lymphadenopathy. HEME: Denies easy bleeding or bruising. NEUROLOGIC: Denies numbness or weakness. PSYCH: Denies anxiety or depression. SKIN: Denies jaundice or rashes. EXTREMITIES: Denies joint pain. ENDOCRINE: Denies hypo or hyperthyroidism. PHYSICAL EXAMINATION: GENERAL: Supine, comfortable, in no acute respiratory distress. EYES: Pupils reactive, lids without pallor. ENT: Oropharynx is clear. Mallampati is 1. Nasal turbinates are clear. CV: S1 and S2. Regular rate and rhythm. No peripheral edema. RESPIRATORY: Decreased breath sounds bilaterally. Respiratory effort is normal. GI: Soft, nontender, and nondistended. No hepatosplenomegaly. : Deferred. NEURO: Alert and responsive. Cranial nerves II through XII intact. Sensation intact to light touch. PSYCH: Normal mood, affect, judgment, and insight. SKIN: No jaundice or rashes. Skin turgor is normal. EXTREMITIES: No clubbing or cyanosis. Joints are normal. History - Adult longitudinal Allergies: Coded Allergies: Penicillins (Severe, HIVES 01/21/24) Sulfa (Sulfonamide Antibiotics) (Severe, HIVES 01/21/24) doxycycline (Mild, HEADACHE 01/22/24) Objective Physical Exam Vitals: Last Documented: Result Date Time Pulse Ox 100 01/21 815 B/P 138/64 01/21 815 B/P Mean 92 01/21 815 Pulse 71 01/21 815 Resp 21 01/21 815 Temp 99.1 01/21 730 O2 Delivery Nasal cannula 01/21 730 O2 Flow Rate 2 01/21 730 General appearance: chronically ill appearing Results Findings/Data: Laboratory Tests 01/21/242114: [Embedded Image Not Available] 01/22/24734: [Embedded Image Not Available] Laboratory Tests 01/20 0734 0735 0735 Chemistry Sodium (134.0 - 147.0 mmol/l) 137 135 Potassium (3.6 - 5.2 mmol/L) 3.8 3.5 L Chloride (98.0 - 107.0 mmol/l) 104 104 Carbon Dioxide (21.0 - 33.0 mmol/l) 19.2 L 22.5 Anion Gap (0 - 20) 17.6 12.0 BUN (7.0 - 18.0 mg/dl) 17 11 Creatinine (0.60 - 1.30 mg/dL) 1.16 0.94 Estimated Creat Clear (>30 mL/min) 42 52 Glomerular Filtr Rate (mL/min) 51 65 Glucose (70.0 - 110.0 mg/dl) 149 H 111 H Hemoglobin A1c (4.8 - 6.0 %A1C) 5.9 Estim Average Glucose (MG/DL) 123 Lactic Acid (0.4 - 2.0 mmol/L) 0.7 Calcium (8.0 - 10.5 mg/dl) 7.7 L 7.5 L Magnesium (1.8 - 2.4 mg/dl) 1.8 1.8 Total Bilirubin (0.0 - 1.0 mg/dl) 0.5 0.4 AST (15 - 37 Units/L) 32 26 ALT (12.0 - 78.0 Units/L) 30 28 Total Alk Phosphatase (50.0 - 136.0 Units/L) 57 44 L Total Protein (6.0 - 8.1 GM/DL) 6.1 5.9 L Albumin (3.2 - 4.7 gm/dL) 3.0 L 2.9 L Laboratory Tests 01/20 Hematology WBC (4.5 - 11.0 K/mm3) 24.9 H 17.5 H RBC (3.80 - 5.20 M/mm3) 4.39 3.83 Hgb (12.0 - 16.0 gm/dL) 12.7 11.1 L Hct (36.0 - 48.0 %) 39.5 34.2 L MCV (82.0 - 99.0 UM3) 90.0 89.3 MCH (25.5 - 32.5 UUG) 28.9 29.0 MCHC (29.0 - 35.5 gm/dL) 32.2 32.5 RDW (11.5 - 15.0 %) 14.0 14.1 Plt Count (150 - 400 K/mm3) 381 325 MPV (7.4 - 10.4 fl) 9.0 9.3 Neut % (Auto) (49.0 - 76.0 %) 88.8 H 82.2 H Lymph % (Auto) (23.0 - 38.0 %) 1.8 L 6.5 L Twiggs % (Auto) (1.0 - 10.0 %) 8.6 10.5 H Eos % (Auto) (1.0 - 5.0 %) 0.0 L 0.0 L Baso % (Auto) (0.0 - 1.0 %) 0.3 0.2 Neut # (Auto) (2.4 - 6.3 K/mm3) 22.1 H 14.3 H Lymph # (Auto) (1.2 - 4.0 K/mm3) 0.5 L 1.1 L Twiggs # (Auto) (0.0 - 0.6 K/mm3) 2.1 H 1.8 H Eos # (Auto) (0.0 - 0.7 K/MM3) 0.0 0.0 Baso # (Auto) (0.0 - 0.2 K/mm3) 0.1 0.0 Absolute Nucleated RBC (0.00 - 0.01 X10 3uL) 0.00 0.00 Immature Gran % (0.0 - 0.4 %) 0.5 H 0.6 H Nucleated RBC % (0.0 - 0.1 %) 0.0 0.0 Immature Gran # (0.00 - 0.07 x10 3/uL) 0.13 H 0.11 H Platelet Estimate ADQ Morphology Comment NM Diagnosis, Assessment Plan Free Text DxA P Notes Free Text DxA P Notes: 1. Sepsis with shock Suspected sepsis based on leukocytosis Empiric antibiotics Follow cultures Given abdominal pain initially, GI and general surgery consulted Obtain CT abdomen results from [place] Wean Levophed as tolerated Follow labs and cultures Remove femoral line in place midline or PICC 2. Leukocytosis Significant Monitor closely 3. Hypokalemia ICU electrolyte protocol set initiated 4. Hypoxemia Oxygen weaned at 1008 RPT #:[id number] END OF [id number] 06:35:00 [facility] ([facility]) Hospitalist History Physical REPORT#:[id number] REPORT STATUS: Signed REPORT INITIALIZATION DATE:01/22/24 TIME: 634 PATIENT: VIKTORIA CR UNIT #: [id number] ROOM/BED: [place] [address] : [birth year] AGE: 68 SEX: F ATTEND: Jovana Knott MD ADM AUTHOR: Jovana Knott MD REPT SERVICE DT/TIME: 01/22/24 0635 * ALL edits or amendments must be made on the electronic/computer document * History of Present Illness HPI Chief complaint: abd pain PCP: PCP: Undefined Provider HPI: 68 yo female received as an ER transfer from OSH, where she presented with abdominal pain. Reports that she was walking to the store when she experienced acute onset severe RUQ pain that made her have to stop and sit down. She called her granddaughter for help, who called EMS. Pt's BP in the field was 70s/30s and she was taken to the ER, where she was found to have lekocytosis and hypotension requiring pressors. Her CT at the OSH shows a dilated CBD. She is transferred for GI/surgical evaluation. RUQ here shows dilated bile duct at 1.6cm; WBC has improved from 24-->16. At the time of my exam, pt feels much better than on admission. She no longer has abdominal pain. She is still on levophed, but it being titrated down. History Past Medical Surgical Hx Patient History: 1. Hypotension 2. Common bile duct dilatation 3. Hypokalemia 4. Gastroenteritis Additional medical history: HTN Family History Family history: Reports: Hypertension. Social History Smoking status for patients 13 years old or older: Never Smoker Medication/Allergy-Vaccine Hx Allergies: Coded Allergies: Penicillins (Severe, HIVES 01/21/24) Sulfa (Sulfonamide Antibiotics) (Severe, HIVES 01/21/24) doxycycline (Mild, HEADACHE 01/22/24) Review of Systems All systems rev neg: except as noted OBJECTIVE VS/I O: Vital Signs Date Temp Pulse Resp B/P B/P Mean Pulse Ox FiO2 01/20-01/21 36.7-37.3 59-102 15-43 83-155/44-79 58-104 90-100 Last Documented: Result Date Time Pulse Ox 100 01/21 1400 B/P 136/63 01/21 1400 B/P Mean 90 01/21 1400 Pulse 82 01/21 1400 Resp 34 01/21 1400 Temp 36.7 01/21 1200 O2 Delivery Nasal cannula 01/21 0730 O2 Flow Rate 2 01/21 0730 24 hour I O ending at 0700: 01/21 0700 01/20 1900 Intake Total 328.00 Output Total 1100 Balance -772.00 Intake, IV 88.00 Intake, Oral 240 Number 2 Bowel Movements Output, Urine 1100 Patient 81.818 kg Weight Weight Stated/Reported Measurement Method Patient Weight and BMI Weight (kg): 81.818 BMI: 29.1 Medications: Active Meds + DC'd Last 24 Hrs Pantoprazole (PROTONIX) 40 MG BID 9A 5P PO Acetaminophen (TYLENOL 325MG) 650 MG Q6H PRN PRN PO Pantoprazole (PROTONIX 40MG INJ) 40 MG NOW ONE IV (DC) Sodium Chloride (SODIUM CHLORIDE 0.9% 10ML) 10 ML ASDIR PRN IV (DC) Ciprofloxacin/Dextrose (CIPRO 400MG/D5W 200 ML) 200 ML Q12HR IV Metronidazole/Sodium Chloride (metroNIDAZOLE 500MG/NS 100ML) 100 ML Q12HR IV Mupirocin (BACTROBAN 2% 22 GM OINT) 1 APPLIC BID NASAL (DC) Mupirocin (BACTROBAN 2% 22 GM OINT) 1 APPLIC BID NASAL Sodium Chloride (SODIUM CHLORIDE 0.9%) 1,000 ML .Q10H IV Fentanyl Citrate (SUBLIMAZE) 25 MCG Q3H PRN PRN IV Gabapentin (NEURONTIN) 800 MG TID PO Tizanidine HCl (Zanaflex) 4 MG BEDTIME PO Fentanyl Citrate (SUBLIMAZE) 25 MCG X1ED STA IV (DC) Norepinephrine Bitartrate (NOREPINEPHRINE 8 MG/NS 250 ML) 250 ML X1ED STA IV (DC) General appearance: alert Head/Eyes: atraumatic Cardiovascular: normal heart sounds Respiratory: aerating well, no distress Abdomen: non-tender, normal bowel sounds, soft, no distention Extremities: moves all Musculoskeletal: normal inspection Neuro/SOLE LEVELER: oriented X 3 Psychiatry: normal judgment/insight Diagnosis, Assessment Plan Free Text A P: sepstic shock requiring pressors dilated biliary duct, concern for choledocholithiasis Admitted IV fluids empiric Cipro/Flagyl GI consulted surgery consulted wean levophed as tolerated diet advanced am labs at 1733 RPT #:[id number] END OF [id number] 22:07:00 [facility] ([facility]) EMERGENCY PROVIDER REPORT REPORT#:[id number] REPORT STATUS: Signed DATE:01/21/24 TIME: 2206 PATIENT: VIKTORIA CR UNIT #: [id number] ROOM/BED: [place] [address] AGE: 68 SEX: F PCP PHYS: Undefined Provider SERVICE AUTHOR: Jed Galeano MD * ALL edits or amendments must be made on the electronic/computer document * HPI-General Illness Free Text HPI Notes Free Text HPI Notes 68-year-old female presented to the emergency department as an ED to ED transfer for GI evaluation for concerning findings on CT, there are possible choledocholithiasis. Transfer center spoke to Dr. Smith. GI physician, he is aware of patient. Patient diagnosed with hypotension, gastroenteritis, dehydration, she received antibiotics, was placed on Levophed for hypotension, per report her systolic was in the 50s/60s, Right femoral central line was placed prior to transport, Levophed at 10 mcg, Patient is alert and oriented x 4, able to answer all questions. General Initial Greet Date/Time 01/21/242100 Presentation Chief Complaint __ (sepsis, hypotension, GIconcern) Review of Systems ROS Statements All systems rev neg except as marked. Past Medical History - Adult Stated Complaint ENTEROCOLITIS, HYPOTENSION, NON ANION GAP ACIDOSIS Allergies Coded Allergies: Penicillins (Severe, HIVES 01/21/24) Sulfa (Sulfonamide Antibiotics) (Severe, HIVES 01/21/24) Calculated Suicide Risk (nurs) No risk Smoking status for patients 13 years old or older: Never Smoker Physical Exam Vital Signs Vital Signs First Documented: Result Date Time Pulse Ox 97 01/21 2044 B/P 92/66 01/21 2044 B/P Mean 74 01/21 2044 O2 Delivery Room air 01/21 2044 Temp 37.0 01/21 2044 Pulse 80 01/21 2044 Resp 18 01/21 2044 Last Documented: Result Date Time B/P 111/62 01/20 2101 B/P Mean 81 01/20 2101 Pulse Ox 97 01/21 2044 O2 Delivery Room air 01/21 2044 Temp 37.0 01/21 2044 Pulse 80 01/21 2044 Resp 18 01/21 2044 Review of Vital Signs Reviewed Free Text PE Notes Free Text PE Notes General: A Ox3, well appearing, no apparent distress HEENT: normocephalic, atraumatic, PERRLA, oropharynx non-erythematous, moist oral mucosa Neck: supple, trachea midline, No significant JVD Pulm: nonlabored, clear to auscultation b/l, good air movement CV: regular rate and rhythm, normal S1 and S2, no murmur, 2+ radial and pedal pulses b/l, no pedal edema, central line in right groin, trace blood collection underneath dressing, no active bleeding, secured in place. GI: nondistended, nontender, no rebound tenderness or guarding MSK: no gross deformity, normal range of motion of all extremities Skin: no rash Neuro: CN II-XII intact, full strength and sensation throughout, normal FNF, no pronator drift, Psych: calm and cooperative Interpretation Diagnostics Lab Results Interpretation Results Laboratory Tests 01/21/242114: [Embedded Image Not Available] Laboratory Tests: 01/20 2115 Chemistry Sodium (134.0 - 147.0 mmol/l) 137 Potassium (3.6 - 5.2 mmol/L) 3.8 Chloride (98.0 - 107.0 mmol/l) 104 Carbon Dioxide (21.0 - 33.0 mmol/l) 19.2 L Anion Gap (0 - 20) 17.6 BUN (7.0 - 18.0 mg/dl) 17 Creatinine (0.60 - 1.30 mg/dL) 1.16 Estimated Creat Clear (>30 mL/min) 42 Glomerular Filtr Rate (mL/min) 51 Glucose (70.0 - 110.0 mg/dl) 149 H Calcium (8.0 - 10.5 mg/dl) 7.7 L Magnesium (1.8 - 2.4 mg/dl) 1.8 Total Bilirubin (0.0 - 1.0 mg/dl) 0.5 AST (15 - 37 Units/L) 32 ALT (12.0 - 78.0 Units/L) 30 Total Alk Phosphatase (50.0 - 136.0 Units/L) 57 Total Protein (6.0 - 8.1 GM/DL) 6.1 Albumin (3.2 - 4.7 gm/dL) 3.0 L Hematology WBC (4.5 - 11.0 K/mm3) 24.9 H RBC (3.80 - 5.20 M/mm3) 4.39 Hgb (12.0 - 16.0 gm/dL) 12.7 Hct (36.0 - 48.0 %) 39.5 MCV (82.0 - 99.0 UM3) 90.0 MCH (25.5 - 32.5 UUG) 28.9 MCHC (29.0 - 35.5 gm/dL) 32.2 RDW (11.5 - 15.0 %) 14.0 Plt Count (150 - 400 K/mm3) 381 MPV (7.4 - 10.4 fl) 9.0 Neut % (Auto) (49.0 - 76.0 %) 88.8 H Lymph % (Auto) (23.0 - 38.0 %) 1.8 L Twiggs % (Auto) (1.0 - 10.0 %) 8.6 Eos % (Auto) (1.0 - 5.0 %) 0.0 L Baso % (Auto) (0.0 - 1.0 %) 0.3 Neut # (Auto) (2.4 - 6.3 K/mm3) 22.1 H Lymph # (Auto) (1.2 - 4.0 K/mm3) 0.5 L Twiggs # (Auto) (0.0 - 0.6 K/mm3) 2.1 H Eos # (Auto) (0.0 - 0.7 K/MM3) 0.0 Baso # (Auto) (0.0 - 0.2 K/mm3) 0.1 Absolute Nucleated RBC (0.00 - 0.01 X10 3uL) 0.00 Immature Gran % (0.0 - 0.4 %) 0.5 H Nucleated RBC % (0.0 - 0.1 %) 0.0 Immature Gran # (0.00 - 0.07 x10 3/uL) 0.13 H Re-Evaluation MDM Free Text MDM Notes Additional Text 68-year-old female presented to the emergency department as an ED to ED transfer for GI evaluation for concerning findings on CT, there are possible choledocholithiasis. Transfer center spoke to Dr. Smith. GI physician, he is aware of patient. Patient diagnosed with hypotension, gastroenteritis, dehydration, she received antibiotics, was placed on Levophed for hypotension, per report her systolic was in the 50s/60s, Right femoral central line was placed prior to transport, Levophed at 10 mcg, Patient is alert and oriented x 4, able to answer all questions. Patient with history as above presented as transfer from outside hospital, for hypotension requiring Levophed, concern for choledocholithiasis,. History obtained from patient, transfer paperwork. Vital sign interpreted by me show within normal limits on Levophed. Labs reviewed. Repeat labs show a WBC count of 24.9, outside labs show elevated lipase, ABG showed acidosis CT imaging report reviewed from outside facility showing signs of dilated common bile duct, Differential diagnosis considered choledocholithiasis, cholangitis, sepsis, septic shock, hypovolemic shock. Overall presentation is consistent with hypovolemic shock versus sepsis, choledocholithiasis. Patient was treated with ciprofloxacin and Flagyl IV, she received 1 L normal saline IV fluid bolus with 20 mill equivalents potassium, and Levophed initiated at outside hospital with improvement in symptoms. [Consideration was given for admission, but the patient was stable for outpatient management. Disposition: Discussed need to follow up diagnostics, including incidental findings. Discharged with instructions to obtain outpatient follow up of patient s symptoms and findings, with strict return precautions if patient develops new or worsening symptoms.] ED Course Medication(s) Ordered Medication(s) Ordered: Autonomic Drugs Sig/Rich Start time Last Medication Dose Route Stop Time Status Admin Norepinephrine 250 ML X1ED STA 01/20 2131 AC Bitartrate IV 01/31 730 Patient Discharge Departure Vital Signs/Condition Vital Signs First Documented: Result Date Time Pulse Ox 97 01/21 2044 B/P 92/66 01/21 2044 B/P Mean 74 01/21 2044 O2 Delivery Room air 01/21 2044 Temp 37.0 01/21 2044 Pulse 80 01/21 2044 Resp 18 01/21 2044 Last Documented: Result Date Time B/P 111/62 01/20 2101 B/P Mean 81 01/20 2101 Pulse Ox 97 01/21 2044 O2 Delivery Room air 01/21 2044 Temp 37.0 01/21 2044 Pulse 80 01/21 2044 Resp 01/20 All vital signs available at the time of this entry have been reviewed. Clinical Impression Clinical Impression Primary Impression: Hypotension Secondary Impressions: Common bile duct dilatation, Gastroenteritis, Hypokalemia Disposition Decision Hospitalize Hosp Physician Name Jovana Knott MD Hosp Physician Hospitalist Request Time 223 Request Date 01/21/24 )( Accepts Hospitalization Yes )( Reason for Hospitalization Hypovolemia, hypokalemia, dilated CBD, gastroenteritis )( Accepted Time 2230 )( Accepted Date 01/21/24 Call Information will see patient at 2231 RPT #:[id number] END OF [id number] 08:02:11 Images from the original note were not included. Requested Renewals Name from pharmacy: LISINOPRIL TABS 20MG Will file in chart as: LISINOPRIL 20 mg tablet Sig: TAKE 1 TABLET IN THE MORNING Disp: 90 tablet Refills: 3 Start: 12/11/2023 Class: eRX For: Essential hypertension Last ordered: 8 months ago (04/12/2023) by Levy Garcia MD Last refill: 10/03/2023 Rx #: [id number] Cardiovascular: RICHARD Inhibitors [id number]/11/2023 11:41 PM Protocol Details Valid encounter within last 12 months K in normal range and within 360 days Cr in normal range and within 360 days To be filled at: [facility] - [place], [place] - [address] [place] [address] CMP NA (mmol/L) Date Value 06/03/2022 139 K (mmol/L) Date Value 06/03/2022 4.2 CALCIUM (mg/dL) Date Value 06/03/2022 9.7 CL (mmol/L) Date Value 06/03/2022 106 BUN (mg/dL) Date Value 06/03/2022 11 CREATININE (mg/dL) Date Value 06/03/2022 0.76 GLUCOSE (mg/dL) Date Value 06/03/2022 92 CO2 TOTAL (mmol/L) Date Value 06/03/2022 26 ALBUMIN (g/dL) Date Value 06/03/2022 4.1 T PROTEIN (g/dL) Date Value 06/03/2022 6.7 TOTAL BILI (mg/dL) Date Value 06/03/2022 0.1 ALTv (U/L) Date Value 06/03/2022 16 AST(SGOT) (U/L) Date Value 06/03/2022 23 ALK PHOS (U/L) Date Value 06/03/2022 80 Recent Visits No visits were found meeting these conditions. Showing recent visits within past 540 days with a meds authorizing provider and meeting all other requirements Future Appointments No visits were found meeting these conditions. Showing future appointments within next 150 days with a meds authorizing provider and meeting all other requirements [facility] K[facility]
[2024-12-19 15:22] LABS: Absolute Lymphocytes (CBC) 0.7 K/uL (0.7-4.9); Absolute Monocytes 0.3 K/uL (0.1-1.3); Absolute Neutrophil 4.6 K/uL (1.8-8.0); Basophils % 0.6 % (0-1.3); Eosinophils % 0.4 % (0-4.4); Hematocrit 22.7 % (36.0-45.0); Hemoglobin 7.3 g/dL (12.0-15.0); Lymphocytes % 11.7 % (15.3-44.8); MCH 26.1 pg (27.0-35.0); MCV 81.6 fL (80-100); MPV 7.6 fL (7.6-11.3); Monocytes % 4.7 % (3.3-12.3); Neutrophils % 82.6 % (41.7-73.7); Nucleated Red Blood Cells % 0.1 % (0-0); Platelets 403 thou/uL (152-406); RBC Red Blood Cell Count 2.79 M/uL (3.86-4.86); Red Cell Distribution Width 19.5 % (12.1-15.2)
[2024-12-19 15:44] LABS: Anion Gap 10.5 mEq/L (5.0-15.0); Potassium 4.5 mEq/L (3.5-5.1)
[2024-12-19 15:45] LABS: Albumin 3.4 g/dL (3.4-5.0); Bilirubin Total 0.2 mg/dL (0.2-1.0); Globulin 3.3 g/dL (2.3-3.5); Protein, Total 6.7 g/dL (6.4-8.2)
[2024-12-19] MEDS ORDERED: NA CHLORIDE 0.9% 250 ML ONE (16:16)
--- NOTE | 2024-12-19 19:23 | EDPHYS ---
Physician Documentation [facility] Name: Viktoria Lindsay Age: 69 yrs Sex: Female : 1955 Arrival Date: 12/19/2024 Time: 14:20 Bed 4 Private MD: ED Physician Dameon Maldonado HPI: 12/19 18:48 This 69 yrs old Female presents to ER via Ambulatory with complaints of Abnormal Lab rt Results. 18:48 Patient presents to the ED with anemia on outpatient labs. She reports of fatigue but rt denies other acute complaints. Denies black, tarry stools, anticoagulant use, rectal bleeding, any signs of bleeding. She has been told that she has iron deficiency has been taking iron supplementation. Denies other acute complaints at this time, symptoms are moderate in severity, no other aggravating or alleviating factors. Patient states that her hemoglobin was 6.7 on the outpatient labs yesterday.. Historical: - Allergies: 14:37 PENICILLINS; ll1 14:37 Sulfa (Sulfonamide Antibiotics); ll1 - PMHx: 14:37 Chronic obstructive lung disease; cardiomyopathy; leaky heart valve; ll1 - PSHx: 14:37 section; ll1 - Immunization history:: Adult Immunizations up to date. - Infectious Disease History:: Denies. - Social history:: Smoking status: Patient denies any tobacco usage or history of. - Family history:: not pertinent. ROS: 18:48 Cardiovascular: Negative for chest pain, palpitations, and edema, Respiratory: Negative rt for shortness of breath, cough, wheezing, and pleuritic chest pain, Abdomen/GI: Negative for abdominal pain, nausea, vomiting, diarrhea, and constipation, MS/Extremity: Negative for injury and deformity, Skin: Negative for injury, rash, and discoloration, Neuro: Negative for headache, weakness, numbness, tingling, and seizure, 18:48 Constitutional: Positive for fatigue, Negative for fever, Exam: 18:48 Constitutional: This is a well developed, well nourished patient who is awake, alert, rt and in no acute distress. Head/Face: Normocephalic, atraumatic. Chest/axilla: Normal chest wall appearance and motion. Nontender with no deformity. No lesions are appreciated. Cardiovascular: Regular rate and rhythm with a normal S1 and S2. No gallops, murmurs, or rubs. Normal PMI, no JVD. No pulse deficits. Respiratory: Lungs have equal breath sounds bilaterally, clear to auscultation and percussion. No rales, rhonchi or wheezes noted. No increased work of breathing, no retractions or nasal flaring. Abdomen/GI: Soft, non-tender, with normal bowel sounds. No distension or tympany. No guarding or rebound. No evidence of tenderness throughout. Skin: Warm, dry with normal turgor. Normal color with no rashes, no lesions, and no evidence of cellulitis. MS/ Extremity: Pulses equal, no cyanosis. Neurovascular intact. Full, normal range of motion. Neuro: Awake and alert, GCS 15, oriented to person, place, time, and situation. Cranial nerves II-XII grossly intact. Motor strength 5/5 in all extremities. Sensory grossly intact. Cerebellar exam normal. Normal gait. Vital Signs: 14:36 BP 156 / 95; Pulse 88; Resp 17; Temp 98.3; Pulse Ox 99% ; Weight 77.11 kg; Height 5 ft. ll1 6 in. ; Pain 0/10; 15:00 BP 156 / 87; Pulse 76; Resp 17; Pulse Ox 97% ; me1 16:00 BP 129 / 67; Pulse 78; Resp 18; Pulse Ox 97% ; me1 17:00 BP 141 / 86; Pulse 77; Resp 17; Temp 97.5; Pulse Ox 99% ; me1 18:05 BP 146 / 81; Pulse 88; Resp 17; Temp 97.4; Pulse Ox 100% ; me1 19:16 BP 132 / 78; Pulse 81; Resp 15; Temp 97.5; Pulse Ox 99% ; me1 14:36 Body Mass Index 27.44 (77.11 kg, 167.64 cm) ll1 14:36 Pain Scale: Adult ll1 MDM: 14:49 Medical Screening Exam initiated rt 18:48 Differential Diagnosis Iron deficiency anemia. Data reviewed: vital signs, nurses rt notes, lab test result(s). Test considered but Not performed: CT: No signs of active bleeding including GI bleeding, imaging is not indicated.. Care significantly affected by the following chronic conditions: Chronic Obstructive Pulmonary Disease. Counseling: I had a detailed discussion with the patient and/or guardian regarding the historical points, exam findings, and any diagnostic results supporting the discharge/admit diagnosis, lab results, the need for outpatient follow up. Response to treatment: the patient's symptoms have mildly improved after treatment. 12/19 15:02 Order name: CBC with Diff; Complete Time: 15:29 rt 12/19 15:02 Order name: CMP; Complete Time: 16:21 rt 12/19 15:02 Order name: Type And Screen rt 12/19 15:51 Order name: ABO/RH no charge; Complete Time: 16:21 EDMS 12/19 16:31 Order name: Packed RBCs (Additional Unit) EDMS 12/19 15:45 Order name: Transfuse; Complete Time: 17:26 ss Administered Medications: No medications were administered Disposition Summary: 12/19/24 19:23 Discharge Ordered Notes: Location: Home rt Problem: an ongoing problem rt Symptoms: have improved rt Condition: Stable rt Diagnosis - Symptomatic anemia rt Followup: rt - With: Private Physician - When: 2 - 3 days - Reason: Discharge Instructions: - Discharge Summary Sheet rt - Iron Deficiency Anemia, Adult rt - Blood Transfusion, Adult, Care After rt Forms: - Medication Reconciliation Form rt - Antibiotic Education rt - Prescription Opioid Use rt - Patient Portal Instructions rt - Leadership Thank You Letter rt Signatures: Dispatcher [employer] Alexa Milton RN RN ss Myla Barney RN RN ll1 Dameon Maldonado MD MD rt Kajal Stanley RN RN me1
--- NOTE | 2024-12-19 19:23 | ER ---
Nurse's Notes [facility] Name: Viktoria Lindsay Age: 69 yrs Sex: Female : 1955 Arrival Date: 12/19/2024 Time: 14:20 Bed 4 Private MD: Diagnosis: Symptomatic anemia Presentation: 12/19 14:36 Chief complaint: Patient states: Told to come to ED. HGB 6.7 and "low iron". Fatigued ll1 easily. Coronavirus screen: Client denies travel out of the [place] in the last 14 days. At this time, the client does not indicate any symptoms associated with coronavirus-19. Ebola Screen: Patient denies travel to an Ebola-affected area in the 21 days before illness onset. Initial Sepsis Screen: Does the patient meet any 2 criteria? No. Patient's initial sepsis screen is negative. Does the patient have a suspected source of infection? No. Patient's initial sepsis screen is negative. Risk Assessment: Do you want to hurt yourself or someone else? Patient reports no desire to harm self or others. Onset of symptoms was December 19, 2024. 14:36 Method Of Arrival: Ambulatory ll1 14:36 Acuity: KEI 2 ll1 Triage Assessment: 14:38 General: Appears in no apparent distress. Behavior is calm, cooperative, appropriate ll1 for age, Reports fatigue for. Pain: Denies pain. Neuro: Reports weakness. Historical: - Allergies: 14:37 PENICILLINS; ll1 14:37 Sulfa (Sulfonamide Antibiotics); ll1 - PMHx: 14:37 Chronic obstructive lung disease; cardiomyopathy; leaky heart valve; ll1 - PSHx: 14:37 section; ll1 - Immunization history:: Adult Immunizations up to date. - Infectious Disease History:: Denies. - Social history:: Smoking status: Patient denies any tobacco usage or history of. - Family history:: not pertinent. Screenin:46 [place] ED Fall Risk Assessment (Adult) History of falling in the last 3 months, me1 including since admission No falls in past 3 months (0 pts) Confusion or Disorientation No (0 pts) Intoxicated or Sedated No (0 pts) Impaired Gait No (0 pts) Mobility Assist Device Used No (0 pt) Altered Elimination No (0 pt) Score/Fall Risk Level 0 - 2 = Low Risk Maintained a safe environment, Provided non-skid footwear, Hourly rounding (assess needs \\T\\ fall precautionary measures) done. Abuse screen: Denies threats or abuse. Nutritional screening: No deficits noted. Tuberculosis screening: No symptoms or risk factors identified. Assessment: 14:46 General: Appears in no apparent distress. Behavior is calm, cooperative, appropriate me1 for age, Reports fatigue for >3 days, Told to come to ED. HGB 6.7 and "low iron". Fatigued easily. Pain: Denies pain. Neuro: Level of Consciousness is awake, alert, obeys commands, Oriented to person, place, time, situation, Appropriate for age. Cardiovascular: Patient's skin is warm and dry. Respiratory: Airway is patent Respiratory effort is even, unlabored, Respiratory pattern is regular, symmetrical. GI: No signs and/or symptoms were reported involving the gastrointestinal system. : No signs and/or symptoms were reported regarding the genitourinary system. EENT: No signs and/or symptoms were reported regarding the EENT system. Derm: Skin is intact, is healthy with good turgor, Skin is pink, warm \\T\\ dry. Musculoskeletal: No signs and/or symptoms reported regarding the musculoskeletal system. 16:17 General: Consent form for blood transfusion signed.. me1 Vital Signs: 14:36 BP 156 / 95; Pulse 88; Resp 17; Temp 98.3; Pulse Ox 99% ; Weight 77.11 kg; Height 5 ft. ll1 6 in. ; Pain 0/10; 15:00 BP 156 / 87; Pulse 76; Resp 17; Pulse Ox 97% ; me1 16:00 BP 129 / 67; Pulse 78; Resp 18; Pulse Ox 97% ; me1 17:00 BP 141 / 86; Pulse 77; Resp 17; Temp 97.5; Pulse Ox 99% ; me1 18:05 BP 146 / 81; Pulse 88; Resp 17; Temp 97.4; Pulse Ox 100% ; me1 19:16 BP 132 / 78; Pulse 81; Resp 15; Temp 97.5; Pulse Ox 99% ; me1 14:36 Body Mass Index 27.44 (77.11 kg, 167.64 cm) ll1 14:36 Pain Scale: Adult ll1 ED Course: 14:23 Patient arrived in ED. im 14:23 Dameon Maldonado MD is Attending Physician. rt 14:37 Triage completed. ll1 14:38 Arm band placed on. ll1 14:46 Patient has correct armband on for positive identification. Bed in low position. Call me1 light in reach. Side rails up X2. Provided Education on: POC. Verbalized understanding.. Client placed on continuous cardiac and pulse oximetry monitoring. NIBP monitoring applied. monitor worker on. Pulse ox on. NIBP on. 14:46 No provider procedures requiring assistance completed. me1 14:55 Kajal Stanley, RN is Primary Nurse. me1 15:16 CBC with Diff Sent. me1 15:16 CMP Sent. me1 15:16 Type And Screen Sent. me1 15:16 Initial lab(s) drawn, by me, sent to lab. Inserted saline lock: 20 gauge in left me1 antecubital area, using aseptic technique. 19:31 IV discontinued, intact, bleeding controlled, No redness/swelling at site. Pressure me1 dressing applied. Administered Medications: No medications were administered Medication: 14:46 VIS not applicable for this client. me1 Outcome: 19:23 Discharge ordered by MD. rt 19:31 Discharged to home ambulatory, with family, me1 19:31 Condition: stable 19:31 Discharge instructions given to patient, Instructed on discharge instructions, follow up and referral plans. Demonstrated understanding of instructions, follow-up care, 19:31 Patient left the ED. me1 Signatures: Myla Barney RN RN ll1 Dameon Maldonado MD MD rt Ann Barakat im Kajal Stanley, RN RN me1 Corrections: (The following items were deleted from the chart) 14:46 14:36 Chief complaint: Patient states: Told to come to ED. HGB 6.7 and "low iron". me1 Fatigued easily. ll1
[2024-12-19 19:59] VITALS: BP 132/78; TEMP 97.5; O2SAT 99
== END 2024-12-19 19:31 | disposition home or self-care (01) ==
LOC: ER 14:20
PROC: 30233N1 Transfusion of Nonautologous Red Blood Cells into Peripheral Vein, Percutaneous Approach (ICD-10-PCS; principal; 2024-12-19)
DX: D64.9 Anemia, unspecified (principal); J44.9 Chronic obstructive pulmonary disease, unspecified
CPT/HCPCS: 85025; 36415; 86900; 86850; 86901; 86920; 80053; 99284; 36430; P9016; J7050